=== PATIENT | male | born 1940 | race Caucasian/White ===

== ENCOUNTER → 2020-02-21 16:40 | Outpatient (BNVA) | payer MEDICARE, SELFPAY | PROVIDERS: Family Provider Internal Medicine; PCP Internal Medicine; Visit Provider Dermatology | DX: D48.9 Neoplasm of uncertain behavior, unspecified (principal) | CPT/HCPCS: 88304 ==

== ENCOUNTER → 2020-09-03 15:51 | Outpatient (BNVA) | payer MEDICARE, SELFPAY | PROVIDERS: Family Provider Internal Medicine; PCP Internal Medicine; Visit Provider Internal Medicine | DX: R82.998 Other abnormal findings in urine (principal); R30.0 Dysuria; I10 Essential (primary) hypertension; N40.0 Benign prostatic hyperplasia without lower urinary tract symptoms; R00.1 Bradycardia, unspecified | CPT/HCPCS: 80053; 81000; 82550; 83036; 84443; 85025 ==

== ENCOUNTER 2020-09-16 13:13 | Outpatient (CLI) | payer MEDICARE, SELFPAY ==
--- NOTE | 2020-09-16 13:45 | CT_ITS ---
WS: [id number] Exam: CT kidney stone [id number] Date/Time of Exam: 09/16/2020 1:27 PM Reason For Exam: R82.998 - Other abnormal findings in urine DLP: 1136.[address] scans at [facility] use at least one of these dose optimization techniques: automat ed exposure control; mA and/or kV adjustment per patient size (includes targeted exams where dose is matched to clinical indication); or iterative reconstruction. Mild infiltrate seen in the lateral aspect of the right lower lobe that may represent pneumonia or ch ronic change. Remaining lower lung zones were clear. A 9.2 x 8.5 mm nonobstructing calculus is noted in the left renal pelvis. There is also an additional 2 mm nonobstructing stone in the lower pole of the left kidney. There is also a 7 mm nonobstructing stone in the right kidney. The kidneys are other carranza unremarkable. 1.6 cm right adrenal nodule noted. Normal left adrenal gland. Coronary artery calc ifications. Normal liver, spleen and stomach. Small hiatal hernia. The pancreas is unremarkable. The abdominal aorta is normal in caliber. No calcified stones in the gallbladder. No free air. No lymphad enopathy in the abdomen. Small bowel loops are not dilated. Normal appendix visualized. Diverticulosi s of the sigmoid and descending colon. No sign of acute diverticulitis. Moderate-sized fat filled lef t inguinal hernia. Small fat filled right inguinal hernia. A 6.4 x 6.5 x 7 cm solid mass is noted in the mesenteric fat within the anterior central pelvis. There is prostatomegaly. The prostate gland me asures slightly over 6 cm in greatest transverse dimension. No destructive bone lesions. Degenerative changes of the lumbar spine. Recommendations: Follow-up abdominal and pelvic CT scan with intravenous and oral contrast could be h elpful in further workup. CT/CT kidney stone [id number] IMPRESSION: 1. 9.2 x 8.5 mm nonobstructing stone in the left renal pelvis. There is also an additional 2 mm nonobstructing stone in the left kidney. 2. 7 mm nonobstructing stone in the right kidney. 3. 1.6 cm right adrenal nodule which is indeterminate. 4. 6.4 x 6.5 x 7 cm solid mass noted in the mesenteric fat in the anterior cent ral pelvis. 5. Colonic diverticulosis. Moderate-sized left inguinal hernia. Other minor fin dings.
== END 2020-09-16 13:14 | disposition home or self-care (01) ==
PROVIDERS: PCP Internal Medicine; Visit Provider Internal Medicine
DX: R82.998 Other abnormal findings in urine (principal); N20.0 Calculus of kidney; D49.7 Neoplasm of unspecified behavior of endocrine glands and other parts of nervous system; K57.90 Diverticulosis of intestine, part unspecified, without perforation or abscess without bleeding; K40.90 Unilateral inguinal hernia, without obstruction or gangrene, not specified as recurrent; R31.0 Gross hematuria
CPT/HCPCS: 74176; 81003; 87086

== ENCOUNTER 2020-09-18 13:55 | Outpatient (CLI) | payer MEDICARE, SELFPAY ==
--- NOTE | 2020-09-18 14:09 | XR_ITS ---
WS: [id number] Exam: XR KUB [id number] Date/Time of Exam: 09/18/2020 2:09 PM Reason For Exam: RENAL STONE No priors. There are calcifications superimposing both kidneys suggesting renal stones. The largest calcificatio n on the left is 10.9 mm at greatest diameter, the right 5.37 mm. No bowel obstruction or free air. M oderate amount stool in the colon. Nonspecific bilateral pelvic calcifications. XR/XR KUB [id number] IMPRESSION: 1. Calcification superimpose both kidneys most likely renal calculi. 2. No acute abdominal finding.
== END 2020-09-18 13:56 | disposition home or self-care (01) ==
LOC: RAD 14:04
PROVIDERS: PCP Internal Medicine; Visit Provider Urology
DX: N20.0 Calculus of kidney (principal)
CPT/HCPCS: 74018; 81003

== ENCOUNTER 2020-09-19 11:26 | Outpatient (CLI) | payer MEDICARE, SELFPAY ==
[2020-09-19] MEDS: iohexol 300 mg/mL 50 mL Btl IV (12:45)
--- NOTE | 2020-09-19 13:00 | CT_ITS ---
WS: [id number] CT ABDOMEN AND PELVIS WITH CONTRAST HISTORY: R19.00 - Intra-abdominal and pelvic swelling, mass. TECHNIQUE: Imaging performed of the abdomen and pelvis with IV contrast. Single phase imaging of the abdomen. Coronal and sagittal reformats are submitted. All CT scans at [facility] use at least one of these dose optimization techniques: automated exposure control; mA and/or kV adjustment per patient size (includes targeted exams where dose is matched to clinical indication); or iterativ e reconstruction. IV CONTRAST: Omnipaque 300; 95 mL IV. Oral contrast: Yes. DLP: 1877.74 mGy.cm COMPARISON: 09/16/2020 Lower thorax: Chronic emphysematous changes at the lung bases. Mild fibrotic changes in the periphery . Heart is normal size. Small hiatal hernia. Liver/biliary system: Normal size with no intrahepatic dilatation. Gallbladder: Contracted gallbladder. No adjacent inflammation. Pancreas: Normal size pancreas and pancreatic duct. No adjacent inflammation. Spleen: Normal size spleen. No mass or infarct. Adrenal glands: Very mild thickening and nodularity of the RIGHT adrenal gland maximum diameter of 12 mm. Right kidney: Very mild atrophy. No obstruction. Nonobstructing 8 mm calcification in the mid kidney. Left kidney: Mild atrophy of the LEFT kidney. There is a nonobstructing calcification in the lower po le. There is an additional ovoid calcification measuring 8 mm at the UV junction. Small amount of adj acent inflammatory change in the soft tissues of the renal pelvis. No obstruction. Aorta: Moderate amount of intimal thickening and calcified plaque within the aorta. No aneurysm. Vari ant celiac axis. Lymphadenopathy: None. Free fluid: None. GI tract: Normal appearance of the stomach. No small bowel obstruction. The appendix is normal. There is a large soft tissue mass in the distal jejunum or proximal ileum centered within the mid pelvis e ncasing small bowel. This mass measures 6.3 x 6.0 x 7.5 cm in length. Small bowel extends through the mass and is not causing any obstruction. There are additional soft tissue masses within the central mesentery above the dominant mass ranging in size from a few millimeters to 3.0 cm. Sigmoid diverticu losis without acute diverticulitis. Abdominal wall: Unremarkable abdominal wall. No hernia. Pelvis: No free fluid or adenopathy within the pelvis. Moderately enlarged heterogeneous prostate gla nd. Inguinal canals are patent bilaterally containing fat only. Bones: There are several lytic areas within the spine and pelvis which will need to be further evalua angelica. Well-circumscribed lytic areas within L3, L4 and S1. Lytic area in the LEFT femoral neck. CT/CT abdomen pelvis w con* [id number] IMPRESSION: 1. Dominant pelvic mass encases distal small bowel without obstruction. Mass m easures 6.3 x 6.0 x 7.5 cm. There are additional smaller masses within the cent ral mesentery which are not encasing bowel. Favor lymphoma is the most likely e tiology. Less likely GIST, carcinoid or adenocarcinoma with metastatic lesions also within the differential. 2. Lytic areas within L3, L4 and S1 in the LEFT femoral neck. Recommend follow -up bone scan imaging to exclude metastatic disease. 3. Nonobstructing LEFT UP junction calcification measuring 8 mm with mild nigel cent inflammatory changes in the renal pelvis. 4. Minimal nodularity RIGHT adrenal gland.
== END 2020-09-19 11:27 | disposition home or self-care (01) ==
PROVIDERS: PCP Internal Medicine; Visit Provider Surgery
DX: R19.00 Intra-abdominal and pelvic swelling, mass and lump, unspecified site (principal); D49.7 Neoplasm of unspecified behavior of endocrine glands and other parts of nervous system; K63.9 Disease of intestine, unspecified
CPT/HCPCS: 74177

== ENCOUNTER 2020-09-24 10:40 | Outpatient (CLI) | payer MEDICARE, SELFPAY ==
--- NOTE | 2020-09-24 11:00 | CT_ITS ---
WS: [id number] CT CHEST WITH INTRAVENOUS CONTRAST HISTORY: FOLLOW ABD/PEL MASS/ ?METS TECHNIQUE: Contiguous 5 mm axial imaging performed on the thorax. Coronal and sagittal reformats are submitted. All CT scans at [facility] use at least one of these dose optimization techniq ues: automated exposure control; mA and/or kV adjustment per patient size (includes targeted exams wh ere dose is matched to clinical indication); or iterative reconstruction. CONTRAST: Omnipaque 300; 95 mL IV. DLP: 980.68 mGycm COMPARISON: None available. Lungs and central airway: Mild pleural thickening and fibrotic changes at the RIGHT apex. Very mild i nterstitial thickening in the RIGHT upper lobe along the fissure. Subpleural reticulations in the RIG HT lower lobe. No suspicious mass or nodule. Pleura: Normal. No pleural effusion. Heart and pericardium: Normal size heart with no pericardial effusion. Mediastinum and tuan: Small axillary and mediastinal lymph nodes. No enlarged lymph nodes. Vessels: Mild atherosclerosis aorta. Normal size pulmonary artery. Chest wall and lower neck: No soft tissue masses. Upper abdomen: Mild nodularity of the RIGHT adrenal gland has been previously described. Osseous structures: No osteoblastic or osteolytic disease identified. CT/CT chest w con* [id number] IMPRESSION: 1. No evidence for metastatic disease to the lungs. No adenopathy. 2. No lytic or destructive lesions within the bones. 3. Mild fibrotic changes in the RIGHT apex.
[2020-09-24] MEDS: iohexol 300 mg/mL 100 mL Btl IV (11:35)
== END 2020-09-24 10:41 | disposition home or self-care (01) ==
PROVIDERS: PCP Internal Medicine; Visit Provider Surgery
DX: R19.00 Intra-abdominal and pelvic swelling, mass and lump, unspecified site (principal)
CPT/HCPCS: 71260; 87635; Q9967

== ENCOUNTER 2020-09-25 01:03 | Emergency (ER) | payer MEDICARE, SELFPAY ==
[2020-09-25 01:08] VITALS: BP 158/83; PULSE 66; RESP 18; TEMP 36.3; O2SAT 96; BMI 29.5
--- NOTE | 2020-09-25 01:11 | ED_ITS ---
HPI - Abdominal Pain General: Chief Complaint: Abdominal Pain Stated Complaint: ab pain, poss kidney stones Time Seen by Provider: 09/25/20 01:08 History of Present Illness: HPI narrative: Patient comes in for concerns of lower abdominal pain. Patient states that he has a history of kidney stones and a pelvic mass that has wrapped itself around the small bowel. Patient reports he is found out this recently over the last 2 weeks. Patient was being evaluat ed for renal stones when they discovered the abnormal mass. Patient reports tonight he started having some lower abdominal pain which he stated was about a 10. Patient states that since arriving to the ER at the pain has subsided. MD elicited complaint: abdominal pain Pertinent past history: diverticulitis (Diverticulosis without past history of diverticulitis) and kidney stones Onset (ago): hour(s) Pain Consistency: intermittent Location: Suprapubic Severity: severe Pain scale (0-10): 10 Quality: cramping Radiation: none Migration to: no migration Exacerbating factors: nothing Relieving factors: nothing Review of Systems General: Reports: 10 or more systems reviewed and unremarkable except in HPI and below GI: Reports: abdominal pain PFSH ED PFSH: Medical History (Updated 09/25/20 @ 02:41 by ESPERANZA Fu) BPH (benign prostatic hyperplasia) Bradycardia Essential (primary) hypertension Low back pain Reflux esophagitis Urolithiasis Surgical History History of bilateral cataract extraction History of lung biopsy History of right knee surgery History of vasectomy Status post colonoscopy Family History Other Diabetes Stroke Social History Smoking and tobacco status: never smoked Alcohol intake: current Alcohol intake frequency: holidays/special occasions only History of recent travel: No Physical Exam Const: COMMON NORMALS: no acute distress and patient oriented x3 GENERAL APPEARANCE: cooperative HENMT: COMMON NORMALS: normocephalic and Normal external nose present HEAD & SCALP: normal to inspection and normocephalic NOSE: Normal external nose present MOUTH: Normal oral and palatal mucosa present Eye: GENERAL EYE: appearance normal, both eyes and all related structures Neck/C-Spine: COMMON NORMALS: full ROM Chest: COMMONS NORMALS: normal inspection of the chest Resp: COMMON NORMALS: normal respiratory effort EFFORT & INSPECTION: Yes able to speak in complete sentences Cardio: COMMON NORMALS: regular rate and regular rhythm RATE: regular rate RHYTHM: regular rhythm GI: COMMON NORMALS: Soft to palpation INSPECTION: Yes normal to inspection AUSCULTATION: Yes Hyperactive bowel sounds present PALPATION: Yes Soft to palpation and Yes Tenderness to palpation present (GI) (Lower abdomen) : COMMON NORMALS: Yes no CVA tenderness BLADDER/KIDNEY EXAM: Yes no CVA tenderness Back/Pelvis: COMMON NORMALS: no CVA tenderness and thoracic and lumbar spine normal to inspection Extremity: COMMON NORMALS: normal to inspection Neuro: COMMON NORMALS: patient oriented x3 and moves all extremities Psych: COMMON NORMALS: mental status grossly normal and cooperative Skin: COMMON NORMALS: no rashes or lesions noted GENERAL SKIN EXAM: no rashes or lesions noted Course Vital Signs: Vital signs: Vital Signs Temperature 97.4 F L 09/25/20 01:08 Pulse Rate 54 L 09/25/20 02:25 Respiratory Rate 18 09/25/20 02:25 Blood Pressure 143/77 09/25/20 02:25 Pulse Oximetry 91 09/25/20 02:25 MDM - Abdominal Pain MDM Narrative: Medical decision making narrative: Patient comes in tonight for concerns of lower abdominal pain. Patient does have a neoplasm in his abdomen that does go around the small bowel. Since arriving to the ER patient does feel somewhat better but would like to be evaluated anyway. On exam patient has hyperactive bowel sounds and some tenderness in the lower abdomen around the periumbilical area. Differential diagnosis includes but not limited to renal calculi, acute urinary retention, bowel obstruction, diverticulitis. Laboratory values were unremarkable. CT scan of the abdomen pelvis noted mass but no signs of obstruction at this time. Although it is suggested that patient may have partial to incomplete obstruction at times. Patient had resolution of pain without intervention. Patient will continue with routine care and follow-up as needed, or return to the ER for worsening symptoms. Lab Data: Labs: Lab Results 09/25/20 09/25/20 Range/Units 01:10 01:10 WBC 6.3 (4.0-10.0) 10^3/ uL RBC 4.98 (4.1-5.3) 10^6/u L Hgb 15.2 (11.7-16.6) g/dL Hct 46.0 (42.0-52.0) % MCV 92.4 (80-94) fL MCH 30.5 (28.0-34.0) pg MCHC 33.0 (30.0-36.0) g/dL RDW 12.4 (12.1-15.1) % Plt Count 148 (130-400) 10^3/c mm MPV 10.9 H (7.4-10.4) fL Neut % (Auto) 69.7 % Lymph % (Auto) 17.0 % Kitt[place] % (Auto) 8.1 % Eos % (Auto) 4.4 % Baso % (Auto) 0.5 % Neut # (Auto) 4.40 (1.8-7.7) 10^3/u L Lymph # (Auto) 1.1 (0.8-4.8) 10^3/u L Kittson # (Auto) 0.5 (0.2-0.9) 10^3/u L Eos # (Auto) 0.3 (0.0-0.8) 10^3/u L Baso # (Auto) 0.0 (0.0-0.1) 10^3/u L Nucleated RBC % (a uto) 0 % Nucleated RBCs # 0.0 /100WBC Sodium 140 (136-145) mmol/L Potassium 4.2 (3.5-5.1) mmol/L Chloride 103 (98-107) mmol/L Carbon Dioxide 28 (22-29) mmol/L Anion Gap 13.2 (5-19) BUN 13 (8-23) mg/dL Creatinine 0.8 (0.7-1.2) mg/dL GFR Calculation Not Reportable Glucose 128 H (65-115) mg/dL Calculated Osmolal ity 292 (285-295) mOsm/k g Calcium 8.9 (8.5-10.5) mg/dL Total Bilirubin 0.3 (0.15-1.2) mg/dL AST 24 (0-40) U/L ALT 26 (0-41) U/L Alkaline Phosphata se 81 (40-130) IU/L Total Protein 6.7 (6.6-8.7) g/dL Albumin 4.2 (3.5-5.2) g/dL Globulin 2.5 (1.3-4.6) g/dL Discharge Plan Discharge Patient Disposition: Home Clinical Impression: Pelvic neoplasm Abdominal pain Qualifiers: Abdominal location: lower abdomen, unspecified Qualified Code(s): R10.30 - Lower abdominal pain, unspecified Condition: Stable Prescriptions: No Action tadalafil [Cialis] 20 mg tablet 20 mg PO DAILY PRNRF: 0 vitamins A,C,T-btzo-ltcdrh PO RF: 0 garlic PO RF: 0 aspirin [Adult Low Dose Aspirin] 81 mg tablet,delayed release (DR/EC) 81 mg PO DAILY RF: 0 clobetasol 0.05 % ointment 1 applic TOPICAL BID Qty: 60 RF: 2 simvastatin 40 mg tablet 40 mg PO DAILY Qty: 90 RF: 3 nifedipine 30 mg tablet extended release 30 mg PO DAILY Qty: 90 RF: 3 Discharge Orders: Discharge ED (Routine); Ordered 09/25/20 Ordered By: Dany Casey Referrals: Db Guido MD [Primary Care Provider] - Discharge Diet: Usual diet Discharge Activity: Increase activity as tolerated Patient Instructions: Abdominal Pain (ED), Opioid Safety Activity Restrictions/Additional Instructions: Drink plenty of fluids. Activity as tolerated. Light diet. Follow-up with primary care or specialist as needed. Return to the ER for worsening symptoms. Coding Level of Care Code ED Chief Nursing Officer for Fredi Fwboubacar Exam Comprehensive
[2020-09-25 01:15] LABS: Basophils % 0.5 %; Eosinophils # 0.3 10^3/uL (0.0-0.8); Eosinophils % 4.4 %; Hemoglobin 15.2 g/dL (11.7-16.6); Lymphocytes # 1.1 10^3/uL (0.8-4.8); Mean Corpuscular Hemoglobin 30.5 pg (28.0-34.0); Mean Corpuscular Volume 92.4 fL (80-94); Mean Platelet Volume 10.9 fL (7.4-10.4); Monocytes # 0.5 10^3/uL (0.2-0.9); Monocytes % 8.1 %; Neutrophils % 69.7 %; Nucleated Red Blood Cells % 0 %; Platelet Count 148 10^3/cmm (130-400); Red Blood Count 4.98 10^6/uL (4.1-5.3); Red Cell Distribution Width 12.4 % (12.1-15.1); White Blood Count 6.3 10^3/uL (4.0-10.0)
--- NOTE | 2020-09-25 01:17 | CTR_ITS ---
PROCEDURE INFORMATION: Exam: CT Abdomen And Pelvis With Contrast Exam date and time: 09/25/2020 1:20 AM Age: 79 years old Clinical indication: Abdominal pain; Localized; Left lower quadrant (llq); Patient HX: Llq pain. Recently known intra-abdomnial mass. ; Additional info: Lower abd pain TECHNIQUE: Imaging protocol: Computed tomography of the abdomen and pelvis with contrast. Radiation optimization: All CT scans at this facility use at least one of these dose optimization techniques: automated exposure control; mA and/or kV adjustment per patient size (includes targeted exams where dose is matched to clinical indication); or iterative reconstruction. Contrast material: OMNI 300; Contrast volume: 95 ml; Contrast route: INTRAVENOUS (IV); COMPARISON: 1. CT abdomen pelvis w con* [id number] 2020-09-19 12:49 2. CR XR KUB [id number] 2020-09-18 14:15 RADIATION DOSE METRICS: Total DLP (mGy-cm): 1873.6 FINDINGS: Lungs: Dependent subsegmental pulmonary atelectasis. Mediastinal space: Mild gastro-esophageal thickening. Question distal esophagitis. Liver: Normal. No mass. Gallbladder and bile ducts: Normal. No calcified stones. No ductal dilation. Pancreas: Normal. No ductal dilation. Spleen: Normal. No splenomegaly. Adrenal glands: Unchanged 1.7 cm right adrenal nodule. Kidneys and ureters: Nonobstructing left renal calculus. Nonobstructing 5 mm right renal calculus. Left ureteral vesicle 9 mm calculus with mild left renal hydronephrosis. Calculus present also on prior and unchanged, could be transient or partially obstructing. Stomach and bowel: Mass appears to extend around the small bowel on sagittal image 44. Probably causes partial /incomplete obstruction. Mild colonic diverticulosis without evidence for acute diverticulitis. Mild colonic diverticulosis without evidence for acute diverticulitis. Appendix: No evidence of appendicitis. Intraperitoneal space: Mass within the mesentery associated with a small bowel loop in the lower abdomen to pelvis measures 6.9 x 6.5 x 7.9 cm. Additional several smaller mesenteric masses such as on coronal image 49 measuring 3.6 cm. Vasculature: Moderate aortic and iliac artery atherosclerotic disease. Lymph nodes: Unremarkable. No enlarged lymph nodes. Urinary bladder: Unremarkable as visualized. Reproductive: 5.1 cm prostate gland enlargement. Bones/joints: Well-circumscribed lytic lesions within the L3-S1 vertebrae and left femoral neck are unchanged, suspect benign, and some could be Schmorl's node cavities. Mild lumbar spondylosis. Soft tissues: Left inguinal fat protruding hernia. Left inguinal fat protruding hernia. CT/CT abdomen pelvis w con* [id number] IMPRESSION: 1. Mass within the mesentery associated with a small bowel loop in the lower abdomen to pelvis measures 6.9 x 6.5 x 7.9 cm. Mass appears to extend around the small bowel on sagittal image 44. Probably causes partial /incomplete obstruction. Additional smaller mesenteric masses. 2. Left ureteral vesicle 9 mm calculus with mild left renal hydronephrosis. Calculus present also on prior and unchanged, could be transient or partially obstructing. 3. Well-circumscribed lytic lesions within the L3-S1 vertebrae and left femoral neck are unchanged, suspect benign, and some could be Schmorl's node cavities. 4. 5.1 cm prostate gland enlargement. 5. Mild gastro-esophageal thickening. Question distal esophagitis. Radiation Dose CTDIVOL = (mGy): DLP = 1873.6 (mGy-cm)
[2020-09-25] MEDS: iohexol 300 mg/mL 100 mL Btl IV (01:27)
[2020-09-25 01:31] LABS: Alanine Aminotransferase 26 U/L (0-41); Albumin Level 4.2 g/dL (3.5-5.2); Alkaline Phosphatase 81 IU/L (40-130); Anion Gap 13.2 (5-19); Aspartate Amino Transferase 24 U/L (0-40); Blood Urea Nitrogen 13 mg/dL (8-23); Calcium 8.9 mg/dL (8.5-10.5); Carbon Dioxide 28 mmol/L (22-29); Chloride 103 mmol/L (98-107); Globulin 2.5 g/dL (1.3-4.6); Glucose 128 mg/dL (65-115); Osmolality Calculated 292 mOsm/kg (285-295); Potassium 4.2 mmol/L (3.5-5.1); Sodium 140 mmol/L (136-145); Total Bilirubin 0.3 mg/dL (0.15-1.2); Total Protein 6.7 g/dL (6.6-8.7)
[2020-09-25] MEDS: ondansetron 2 mg/ML SDV 2 mL 4 MG IVP (01:34)
[2020-09-25] MEDS: morphine 4 mg/mL SDV 1 mL 2 MG IVP (01:36)
[2020-09-25 02:25] VITALS: BP 143/77; PULSE 54; RESP 18; O2SAT 91
[2020-09-25 02:42] LABS: Add Urine Microscopic? YES; Bilirubin Urine Neg (Negative); Blood Urine 2+ (Negative); Glucose Urine UA Norm (Normal); Ketones Urine Negative (Negative); Leukocyte Esterase Urine Negative (Negative); Nitrate Urine Negative (Negative); Protein Urine Neg (Negative); Urine Appearance Clear (CLEAR); Urine Color Yellow (Yellow); Urobilinogen Urine Norm (Negative); pH Urine 7 (5-7)
[2020-09-25 02:43] LABS: Add Urine Culture? No; Squamous Epithelial Cell Urine RARE /hpf (0-5); WBC Urine 0-4 /hpf (0-5)
[2020-09-25 02:46] VITALS: BP 141/88; PULSE 51; RESP 18; O2SAT 94
== END 2020-09-25 02:47 | disposition home or self-care (01) ==
PROVIDERS: Emergency Provider Nurse Practitioner Family; PCP Internal Medicine
DX: R10.30 Lower abdominal pain, unspecified (principal); D49.89 Neoplasm of unspecified behavior of other specified sites; Z79.82 Long term (current) use of aspirin; I10 Essential (primary) hypertension
CPT/HCPCS: 74177; 80053; 81001; 85025; 96374; 96375; 99284; J2270; J2405; Q9967

== ENCOUNTER 2020-09-30 15:47 | Inpatient (IN) | payer MEDICARE, SELFPAY ==
[2020-09-27 15:03] VITALS: BMI 29.5
--- NOTE | 2020-09-27 18:34 | PC.NURSE ---
Mr. Diamond was given instruction at pre-op to be NPO after midnight September 29 2020, in addition to drinking only clear fluids on September 28 and 2020. Confirmed with Dr Montiel that clear liquids x2 days was not necessary and no enema was required. Pt was instructed to only be NPO after midnight on Sep 29, 2020 in preparation for Small Bowel Resection planned for September 30, 2020. Pt verbalized understanding.
[2020-09-30] VITALS (18 sets, daily range): BP systolic 115–150; BP diastolic 66–93; PULSE 54–73; RESP 12–20; TEMP 36.1–36.8; O2SAT 93–100
--- NOTE | 2020-09-30 11:17 | W.PM.OPSUD ---
Surgery/Procedure H&P Update DATE OF PROCEDURE: September 30, 2020 DATE H&P PERFORMED: 09/20/20 H&P UPDATE INFORMATION: I have reviewed H&P completed within last 30 days, I have examined patient prior to procedure and No changes to prior documentation PREOP DIAGNOSIS: Pelvic mass PLANNED PROCEDURE: Operation Date: 09/30/20 12:20 Proposed Procedures p Laparoscopic Small Bowel Resection [id number] R19.0 16134(Not Applicable) - Víctor Montiel MD s EGD(Not Applicable) - Víctor Montiel MD
[2020-09-30] MEDS: sodium chloride 0.9% 1,000 ML 30 ML IV (12:27)
--- NOTE | 2020-09-30 12:43 | ANES.PREANE2 ---
Pre-Anesthetic Assessment Pre-Anesthetic Assessment: Height/Weight: Height 1.75 m Weight 90.718 kg Temp Pulse Resp BP Pulse Ox 97 F L 54 L 18 123/93 98 09/30/20 11:07 09/30/20 11:07 09/30/20 11:07 09/30/20 11:07 09/30/20 11:07 Preop Diagnosis: Pelvic mass Proposed Procedure: Operation Date: 09/30/20 12:20 Proposed Procedures p Laparoscopic Small Bowel Resection 14206 R19.0 92582(Not Applicable) - Víctor Montiel MD s EGD(Not Applicable) - Víctor Montiel MD Familial anesthetic complications: none Was Beta Sowmya taken within 24 hours: N/A Was Clonidine taken within 24 hours: N/A Last intake: > 8 hrs Social: Social History: No alcohol and No tobacco Exam: Pre-Anes Outpt Exam: alert, oriented x 3, clear to auscultation bilaterally and regular rate & rhythm Airway: Cervical ROM: WNL MP: 4 Dentition: Full CV/HEM: CV/HEM: Arrythmia (bradycardia) and HTN Metabolic: Metabolic: Hyperlipidemia Anesthetic Plan: ASA status: 2 Anesthesia: General Risk of > 500 ml blood loss (7ml/kg in children): No Meds/Allergies Current Medications: Current Medications Generic Name Dose Route Start Last Admin Trade Name Freq PRN Reason Stop Dose Admin Sodium Chloride 1,000 mls @ 30 ml s/hr 09/30/20 11:15 09/30/20 12:27 Sodium Chloride 0.9% IV 10/01/20 11:14 30 mls/hr .Q24H GOLDEN Administration PFSH Anesthesia PFSH: Medical History (Updated 09/25/20 @ 02:41 by ESPERANZA Fu) BPH (benign prostatic hyperplasia) Bradycardia Essential (primary) hypertension Low back pain Reflux esophagitis Urolithiasis Surgical History History of bilateral cataract extraction History of lung biopsy History of right knee surgery History of vasectomy Status post colonoscopy Family History Other Diabetes Stroke Social History Smoking and tobacco status: never smoked Alcohol intake: current Alcohol intake frequency: holidays/special occasions only History of recent travel: No Data Anesthesia Cardiac Studies: No Data to Display
[2020-09-30] MEDS: midazolam 1 mg/mL INJ 5 ML 5 MG IVP (12:50)
[2020-09-30] MEDS: piperacillin-tazobactam 3.375 GM in sodium chloride 0.9% (plus) 50 ML IV (13:55)
--- NOTE | 2020-09-30 14:48 | PC.NURSE ---
6909 Spoke with patient's spouse via phone and gave her an update. BIBI
--- NOTE | 2020-09-30 15:34 | PC.NURSE ---
[id number] spoke with patient's . liana
--- NOTE | 2020-09-30 15:52 | P.OP_ITS ---
Operative Report Date of procedure: September 30, 2020 Pre-op Diagnosis: Pelvic mass Post-op Findings: No evidence of liver metastasis No evidence of peritoneal carcinomatosis 10 cm small bowel mass with a 5 cm mass in the mesentery Procedure Done: Laparoscopic small bowel resection with stapled [id number] anastomosis Specimens removed/disposition: Ileal mass and mesentery Surgeon: Víctor Montiel Anesthesia: General Estimated blood loss (mL): 10 IV fluids (mL): 1,000 Urine output (mL): 50 Condition: stable Disposition: PACU Procedure: The patient was taken to the operating room and intubated by general anesthesia after IV antibiotic had been administered. A Arreola catheter was placed and the abdomen was prepped and draped in sterile manner. Using a 15 blade longitudinal umbilical incision was made and using open Ojeda technique the peritoneal cavity was entered and a 10 mm port was placed and 15 mm of pneumoperitoneum was created. A 10 mm 30 degree scope was introduced and a 5 mm port was placed in the epigastric region, suprapubic area and left lower quadrant under direct visualization. 20 cc of saline mixed with 20 cc of Exparel mixed with 20 cc of 0.5% Marcaine was infiltrated in the midclavicular line under laparoscopic visualization for a TAP block There was no evidence of peritoneal carcinomatosis or liver metastasis. The colon appeared normal on gross exam and the small bowel was examined from the ligament of Treitz to the ileocecal valve. A large mass measuring about 10 cm was identified in the ileum with the smaller mass in the mesentery adjacent to the larger mass. About 10 cm on either side of the mass an opening was made in the mesentery and using Enseal ultrasonic dissector the mesentery of the small bowel was divided up to the base incorporating the mass within the mesentery. There was no significant bleeding noted. At this point the infraumbilical incision was extended and a wound protector was placed. The small bowel loop was exteriorized and interrupted 4-0 Vicryl sutures were placed to approximate the 2 edges of the ileum which were going to be anastomosed. Enterotomies were made using electrocautery adjacent to each other on the approximated small bowel segments and a 55 mm blue Stromedix EYAL stapler was fired to create a [id number] enteroenterostomy. The enterotomies that were created were grasped with Allis clamps and a 55 mm blue load EYAL stapler x2 was fired distal to the enterotomies to excise the specimen and create a [id number] anastomosis. The intersection of the staple lines were everted using 3-0 Vicryl Lembert sutures. The defect of the mesentery was closed using running 3-0 Vicryl suture. The small bowel was reintroduced into the peritoneal cavity and anastomosis covered with omentum. All ports were removed and the fascia in the midline was closed using running #1 looped PDS. Subcutaneous tissue was irrigated with with saline and approximated using interrupted 3-0 Vicryl suture and skin at all 4 incisions were closed with running subcuticular 4-0 Monocryl suture and Dermabond. The patient was extubated and transferred to recovery room in stable condition with a Arreola catheter.
--- NOTE | 2020-09-30 16:10 | P.PCN_ITS ---
PACU note PACU note: VSS, Good respiratory effort, report to CATALYST OPERATOR CHIEF Post-Anesthesia Exam: awake
--- NOTE | 2020-09-30 16:10 | PM.PACU ---
PACU note PACU note: VSS, Good respiratory effort, report to SHOT BAGGER Post-Anesthesia Exam: awake
[2020-09-30] MEDS: ondansetron 2 mg/ML SDV 2 mL 4 MG IVP (17:35)
[2020-09-30] MEDS: sennosides-docusate Tablet 1 TAB PO (17:35)
[2020-09-30] MEDS: metroNIDAZOLE IV 500 MG/100 ML PREMIX 100 MG IV (17:35)
[2020-09-30] MEDS: D5-NS 0.45% + KCL 20 mEq 20 MEQ/1,000 ML BAG 100 MEQ IV (17:35)
[2020-09-30] MEDS: morphine 4 mg/mL SDV 1 mL 3 MG IVP ×2 (17:35→22:57)
[2020-09-30] MEDS: HYDROcodone-acetaminophen 5-325 mg Tablet 1 TAB PO (19:28)
--- NOTE | 2020-09-30 20:38 | ANE.PACU2 ---
Inpatient post-anesthesia follow up: Airway intact: Yes Vital signs: Temperature 97.8 F Pulse Rate 70 Respiratory Rate 18 Blood Pressure 144/73 Pulse Oximetry 97 Oxygen Delivery Me thod Nasal Cannula Oxygen Flow Rate 2 Fraction of Inspir ed Oxygen Hydration adequate: Yes Nausea and vomiting: No Pain level: 2 Mental status: Baseline
[2020-09-30] MEDS: famotidine 20 mg/2 mL INJ IVP (21:13)
[2020-10-01] VITALS (7 sets, daily range): BP systolic 119–150; BP diastolic 73–79; PULSE 57–64; RESP 16–20; TEMP 36.4–37.1; O2SAT 88–98
[2020-10-01 02:41] LABS: Basophils % 0.3 %; Eosinophils % 0.4 %; Hemoglobin 13.7 g/dL (11.7-16.6); Lymphocytes # 0.5 10^3/uL (0.8-4.8); Lymphocytes % 6.5 %; Mean Corpuscular HGB Conc 33.4 g/dL (30.0-36.0); Mean Corpuscular Hemoglobin 31.1 pg (28.0-34.0); Mean Corpuscular Volume 93.2 fL (80-94); Mean Platelet Volume 11.4 fL (7.4-10.4); Monocytes # 0.4 10^3/uL (0.2-0.9); Monocytes % 5.3 %; Neutrophils # 6.46 10^3/uL (1.8-7.7); Neutrophils % 87.4 %; Nucleated Red Blood Cells % 0 %; Platelet Count 118 10^3/cmm (130-400); Red Cell Distribution Width 12.6 % (12.1-15.1); White Blood Count 7.4 10^3/uL (4.0-10.0)
[2020-10-01] MEDS: D5-NS 0.45% + KCL 20 mEq 20 MEQ/1,000 ML BAG 100 MEQ IV ×2 (02:44→17:28)
[2020-10-01] MEDS: metroNIDAZOLE IV 500 MG/100 ML PREMIX 100 MG IV (02:45)
[2020-10-01 03:04] LABS: Anion Gap 11.6 (5-19); Blood Urea Nitrogen 14 mg/dL (8-23); Calcium 7.6 mg/dL (8.5-10.5); Carbon Dioxide 26 mmol/L (22-29); Chloride 106 mmol/L (98-107); Creatinine Clr Calc Pharmacy 76.5209; Glucose 140 mg/dL (65-115); Osmolality Calculated 291 mOsm/kg (285-295); Potassium 4.6 mmol/L (3.5-5.1); Sodium 139 mmol/L (136-145)
[2020-10-01] MEDS: HYDROcodone-acetaminophen 5-325 mg Tablet 1 TAB PO ×4 (04:04→20:31)
[2020-10-01] MEDS: morphine 4 mg/mL SDV 1 mL 3 MG IVP (07:06)
[2020-10-01] MEDS: sennosides-docusate Tablet 1 TAB PO ×2 (09:15→17:27)
[2020-10-01] MEDS: NIFEdipine ER (24 hr) 30 mg Tablet PO (09:15)
--- NOTE | 2020-10-01 09:38 | PC.NURSE ---
Arreola catheter Ordered received to remove catheter DC without difficulty 850ml of dark jose urine
[2020-10-01] MEDS: famotidine 20 mg/2 mL INJ IVP ×2 (09:47→20:31)
--- NOTE | 2020-10-01 13:29 | PM.PN ---
Vitals/I&O/Wt Last Vital Signs Temp 98.5 F 10/01/20 11:46 Pulse 64 10/01/20 11:46 Resp 17 10/01/20 11:46 BP 150/79 10/01/20 11:46 Pulse Ox 93 10/01/20 12:25 09/30/20 10/01/20 10/01/20 22:59 06:59 14:59 Intake Total 410 / 1525 1065 / 1525 600 / 600 Output Total 110 / 110 850 / 850 Balance 300 / 1415 1065 / 1415 -250 / -250 Physical Exam Urinary Catheter Management^: Arreola: Cath Placed During This Visit: yes, but has since been removed by the nurse Reason for Continuing Indwelling Catheter: Other Urinary Catheter Date of Insertion: 09/30/20 Urinary Catheter Time of Insertion: 13:30 Date Urinary Catheter Removed: 10/01/20 Time Urinary Catheter Discontinued: 09:30 Data : 10/01/20 02:18 10/01/20 02:18 A&P Assessment and plan (1) S/P small bowel resection: Overall doing well, pain is reasonably controlled, has postop ileus Decrease IV fluids to 50 cc/h Senna S for bowel regimen Morphine, Tylenol and Mcintyre for pain control Start clear liquid diet Ambulate with physical therapy Lovenox for DVT prophylaxis Pepcid for GI prophylaxis DC Arreola Patient will need greater than 2 nights of inpatient stay to ensure resolution of ileus Status: Acute Attestations Medical Necessity Statement*: Status post bowel resection with postop ileus requiring continued inpatient stay Coding Level of Care Code Acute Horse Racetrack Manager for Chg Fwd Diagnoses S/P small bowel resection Z90.49
[2020-10-01] MEDS: enoxaparin 40 mg/0.4 mL Syringe SUBCUT (17:28)
--- NOTE | 2020-10-01 17:35 | PC.NURSE ---
patient has not passed gas yet
[2020-10-02] VITALS (8 sets, daily range): BP systolic 129–170; BP diastolic 64–81; PULSE 57–68; RESP 17–20; TEMP 36.4–37.1; O2SAT 92–98
[2020-10-02 02:43] LABS: Basophils % 0.1 %; Eosinophils # 0.2 10^3/uL (0.0-0.8); Hematocrit 40.6 % (42.0-52.0); Hemoglobin 13.9 g/dL (11.7-16.6); Lymphocytes # 0.6 10^3/uL (0.8-4.8); Lymphocytes % 8.8 %; Mean Corpuscular HGB Conc 34.2 g/dL (30.0-36.0); Mean Corpuscular Hemoglobin 31.4 pg (28.0-34.0); Mean Corpuscular Volume 91.6 fL (80-94); Mean Platelet Volume 11.1 fL (7.4-10.4); Monocytes # 0.5 10^3/uL (0.2-0.9); Monocytes % 7.3 %; Neutrophils # 5.83 10^3/uL (1.8-7.7); Neutrophils % 80.5 %; Nucleated Red Blood Cells % 0 %; Platelet Count 118 10^3/cmm (130-400); Red Blood Count 4.43 10^6/uL (4.1-5.3); Red Cell Distribution Width 12.6 % (12.1-15.1); White Blood Count 7.3 10^3/uL (4.0-10.0)
[2020-10-02] MEDS: HYDROcodone-acetaminophen 5-325 mg Tablet 1 TAB PO ×3 (02:46→16:38)
[2020-10-02 03:02] LABS: Anion Gap 11.2 (5-19); Blood Urea Nitrogen 8 mg/dL (8-23); Calcium 8.1 mg/dL (8.5-10.5); Carbon Dioxide 28 mmol/L (22-29); Chloride 103 mmol/L (98-107); Glucose 117 mg/dL (65-115); Osmolality Calculated 285 mOsm/kg (285-295); Potassium 4.2 mmol/L (3.5-5.1); Sodium 138 mmol/L (136-145)
[2020-10-02] MEDS: morphine 4 mg/mL SDV 1 mL 3 MG IVP (06:20)
[2020-10-02] MEDS: NIFEdipine ER (24 hr) 30 mg Tablet PO (08:15)
[2020-10-02] MEDS: famotidine 20 mg/2 mL INJ IVP ×2 (08:15→23:24)
[2020-10-02] MEDS: sennosides-docusate Tablet 1 TAB PO ×2 (08:15→16:38)
--- NOTE | 2020-10-02 09:36 | PC.NURSE ---
Patient walked 650 steps tolerated well nurse noted by
--- NOTE | 2020-10-02 14:22 | PM.PN ---
Subjective Subjective: Interval history: Patient has been doing well, ambulating, no flatus or BM, denies any nausea or vomiting Vitals/I&O/Wt Last Vital Signs Temp 98.8 F 10/02/20 12:00 Pulse 60 10/02/20 12:00 Resp 17 10/02/20 12:00 BP 156/80 10/02/20 12:00 Pulse Ox 92 10/02/20 12:00 10/01/20 10/02/20 10/02/20 22:59 06:59 14:59 Intake Total 360 / 3630 1360 / 3630 Output Total 1350 / 2200 Balance -990 / 1430 1360 / 1430 Physical Exam Narrative: EXAM NARRATIVE: Abdomen: Soft, mildly distended, tender, incision clean dry and intact, there is redness around the incision. Urinary Catheter Management^: Arreola: Cath Placed During This Visit: yes, but has since been removed by the nurse Reason for Continuing Indwelling Catheter: Decision to DC Catheter Urinary Catheter Date of Insertion: 09/30/20 Urinary Catheter Time of Insertion: 13:30 Date Urinary Catheter Removed: 10/01/20 Time Urinary Catheter Discontinued: 09:36 Data : 10/02/20 02:34 10/02/20 02:34 A&P Assessment and plan (1) S/P small bowel resection: Overall doing well, pain is reasonably controlled, has postop ileus, awaiting return of bowel function DC IV fluids Patient has redness around the incision but he is afebrile and his white count is 7.3 Senna S for bowel regimen Morphine, Tylenol and Cyclone for pain control Patient is a bit distended and therefore we will continue with clear liquid diet for now Ambulate with physical therapy Lovenox for DVT prophylaxis Pepcid for GI prophylaxis Patient will need greater than 2 nights of inpatient stay to ensure resolution of ileus Status: Acute Attestations Medical Necessity Statement*: Status post small bowel obstruction with postop ileus requiring continued inpatient stay to ensure resolution of ileus Coding Level of Care Code Acute Machine Design Checker for Fredi Fwboubacar Diagnoses S/P small bowel resection Z90.49
[2020-10-02] MEDS: enoxaparin 40 mg/0.4 mL Syringe SUBCUT (16:38)
[2020-10-03] VITALS (8 sets, daily range): BP systolic 127–168; BP diastolic 66–84; PULSE 53–102; RESP 16–20; TEMP 36.5–37.3; O2SAT 91–98
[2020-10-03] MEDS: morphine 4 mg/mL SDV 1 mL 3 MG IVP (01:54)
--- NOTE | 2020-10-03 02:33 | PC.NURSE ---
CLAUSTROPHOBIA/PANIC ATTACK Woke up to go to the bathroom and was c/o feeling panicky. Is really wanting to go home and says really misses his . Says if he had a way he would go home right now. Had some mild pain and was given IV Morphine for this and to help relax him. Sat in chair for awhile talking with nurse then returned to bed. Continued to talk with him for about half an hour and says has made him feel better. Is very pleasant. Talking about his and travels over [place]
[2020-10-03 02:42] LABS: Basophils % 0.2 %; Eosinophils # 0.2 10^3/uL (0.0-0.8); Eosinophils % 3.6 %; Hematocrit 43.2 % (42.0-52.0); Hemoglobin 14.6 g/dL (11.7-16.6); Lymphocytes # 0.7 10^3/uL (0.8-4.8); Lymphocytes % 9.8 %; Mean Corpuscular HGB Conc 33.8 g/dL (30.0-36.0); Mean Corpuscular Hemoglobin 30.9 pg (28.0-34.0); Mean Corpuscular Volume 91.5 fL (80-94); Mean Platelet Volume 11.5 fL (7.4-10.4); Monocytes # 0.6 10^3/uL (0.2-0.9); Monocytes % 8.5 %; Neutrophils # 5.14 10^3/uL (1.8-7.7); Neutrophils % 77.6 %; Nucleated Red Blood Cells % 0 %; Platelet Count 130 10^3/cmm (130-400); Red Blood Count 4.72 10^6/uL (4.1-5.3); Red Cell Distribution Width 12.4 % (12.1-15.1); White Blood Count 6.6 10^3/uL (4.0-10.0)
[2020-10-03 02:59] LABS: Anion Gap 14.9 (5-19); Blood Urea Nitrogen 9 mg/dL (8-23); Calcium 8.3 mg/dL (8.5-10.5); Carbon Dioxide 25 mmol/L (22-29); Chloride 102 mmol/L (98-107); Glucose 116 mg/dL (65-115); Osmolality Calculated 286 mOsm/kg (285-295); Potassium 3.9 mmol/L (3.5-5.1); Sodium 138 mmol/L (136-145)
--- NOTE | 2020-10-03 06:33 | PC.NURSE ---
SHIFT SUMMARY Says he slept some after the panic attack earlier in the night. Is still voicing that he really wants to go home today. Says he just has to get out of the hospital. Is not used to being down. Incision redness has not changed since shift beginning. No drainage noted. Midline incision as well as X3 stab incisions all with dermabond closure. Continues to pass gas and feels like he is getting closer to a BM. Abdomen softly distended. Incisional tenderness present. Bowel sounds present. Ambulates in room and faria well
--- NOTE | 2020-10-03 08:53 | PM.PN ---
Subjective Subjective: Interval history: Patient had an anxiety attack last night, no nausea or vomiting, feels that abdominal pain is improved, passing flatus, no BM Vitals/I&O/Wt Last Vital Signs Temp 97.9 F 10/03/20 07:35 Pulse 102 H 10/03/20 07:35 Resp 17 10/03/20 07:35 BP 127/71 10/03/20 07:35 Pulse Ox 92 10/03/20 07:35 10/02/20 10/03/20 10/03/20 22:59 06:59 14:59 Intake Total 300 / 540 240 / 540 Output Total 200 / 800 600 / 800 Balance 100 / -260 -360 / -260 Physical Exam Narrative: EXAM NARRATIVE: Abdomen: Soft, minimally tender, nondistended, hematoma around the incision, incisions clean dry and intact Urinary Catheter Management^: Arreola: Cath Placed During This Visit: yes, but has since been removed by the nurse Reason for Continuing Indwelling Catheter: Decision to DC Catheter Urinary Catheter Date of Insertion: 09/30/20 Urinary Catheter Time of Insertion: 13:30 Date Urinary Catheter Removed: 10/01/20 Time Urinary Catheter Discontinued: 09:36 Data : 10/03/20 02:28 10/03/20 02:28 A&P Assessment and plan (1) S/P small bowel resection: Overall doing well, pain is reasonably controlled, has postop ileus, awaiting return of bowel function Patient has redness around the incision, which is improved compared to yesterday but he is afebrile and his white count is 6.6 Senna S for bowel regimen Morphine, Tylenol and [place] for pain control Patient is passing flatus, advance to full liquid diet Ambulate with physical therapy Lovenox for DVT prophylaxis Pepcid for GI prophylaxis Patient will need greater than 2 nights of inpatient stay to ensure resolution of ileus Status: Acute Attestations Medical Necessity Statement*: Status post small bowel resection awaiting return of bowel function Coding Level of Care Code Acute Motor Vehicle Escort Driver for Veliag Fwd Diagnoses S/P small bowel resection Z90.49
--- NOTE | 2020-10-03 09:21 | PC.SOCIAL ---
*IMM UPDATE* Gave patient IMM update with at bedside. Verbalized understanding. 10/03/20 @ 0910 Initialed, dated, timed and placed in chart.
[2020-10-03] MEDS: NIFEdipine ER (24 hr) 30 mg Tablet PO (10:17)
[2020-10-03] MEDS: sennosides-docusate Tablet 1 TAB PO ×2 (10:17→17:33)
[2020-10-03] MEDS: famotidine 20 mg/2 mL INJ IVP ×2 (10:17→21:15)
[2020-10-03] MEDS: enoxaparin 40 mg/0.4 mL Syringe SUBCUT (17:33)
[2020-10-04 02:21] LABS: Basophils % 0.3 %; Eosinophils # 0.3 10^3/uL (0.0-0.8); Hematocrit 39.3 % (42.0-52.0); Hemoglobin 13.2 g/dL (11.7-16.6); Lymphocytes % 14.8 %; Mean Corpuscular HGB Conc 33.6 g/dL (30.0-36.0); Mean Corpuscular Hemoglobin 30.7 pg (28.0-34.0); Mean Corpuscular Volume 91.4 fL (80-94); Mean Platelet Volume 11.2 fL (7.4-10.4); Monocytes # 0.7 10^3/uL (0.2-0.9); Neutrophils # 4.74 10^3/uL (1.8-7.7); Neutrophils % 70.6 %; Nucleated Red Blood Cells % 0 %; Platelet Count 139 10^3/cmm (130-400); Red Cell Distribution Width 12.5 % (12.1-15.1); White Blood Count 6.7 10^3/uL (4.0-10.0)
[2020-10-04 02:47] LABS: Anion Gap 11.2 (5-19); Blood Urea Nitrogen 17 mg/dL (8-23); Calcium 8.5 mg/dL (8.5-10.5); Carbon Dioxide 28 mmol/L (22-29); Chloride 104 mmol/L (98-107); Glucose 99 mg/dL (65-115); Osmolality Calculated 290 mOsm/kg (285-295); Potassium 4.2 mmol/L (3.5-5.1); Sodium 139 mmol/L (136-145)
[2020-10-04 04:00] VITALS: BP 147/76; PULSE 62; RESP 18; TEMP 36.7; O2SAT 93
[2020-10-04 07:52] VITALS: BP 146/75; PULSE 69; RESP 17; TEMP 36.3; O2SAT 96
--- NOTE | 2020-10-04 08:39 | P.PN_ITS ---
Subjective Subjective: Interval history: Patient has been doing well, denies nausea or vomiting, tolerating full liquid diet, passing flatus, no BM yet Vitals/I&O/Wt Last Vital Signs Temp 97.4 F L 10/04/20 07:52 Pulse 69 10/04/20 07:52 Resp 17 10/04/20 07:52 BP 146/75 10/04/20 07:52 Pulse Ox 96 10/04/20 07:52 10/03/20 10/04/20 10/04/20 22:59 06:59 14:59 Intake Total 0 / 840 120 / 840 Balance 0 / 840 120 / 840 Physical Exam Narrative: EXAM NARRATIVE: Abdomen: Soft, not tender, nondistended, incision clean dry and intact Urinary Catheter Management^: Arreola: Cath Placed During This Visit: yes, but has since been removed by the nurse Reason for Continuing Indwelling Catheter: Decision to DC Catheter Urinary Catheter Date of Insertion: 09/30/20 Urinary Catheter Time of Insertion: 13:30 Date Urinary Catheter Removed: 10/01/20 Time Urinary Catheter Discontinued: 09:36 Data : 10/04/20 02:00 10/04/20 02:00 A&P Assessment and plan (1) S/P small bowel resection: Overall doing well, pain is reasonably controlled, has postop ileus, awaiting return of bowel function Patient has redness around the incision, which is improved compared to yesterday but he is afebrile and his white count is 6.6 DC home today Status: Acute Attestations Medical Necessity Statement*: DC home today Coding Level of Care Code Acute Primary Products Inspectors for Fredi Harper Diagnoses S/P small bowel resection Z90.49
[2020-10-04] MEDS: NIFEdipine ER (24 hr) 30 mg Tablet PO (08:43)
[2020-10-04] MEDS: sennosides-docusate Tablet 1 TAB PO (08:43)
[2020-10-04] MEDS: famotidine 20 mg/2 mL INJ IVP (08:43)
[2020-10-04 12:12] VITALS: BP 146/75; PULSE 69; RESP 17; TEMP 36.3; O2SAT 96
--- NOTE | 2020-10-04 12:46 | PM.DCS ---
Discharge Providers Date of Admission: 09/30/20 15:47 Date of Discharge: October 04, 2020 Attending Provider at Admission: Víctor Montiel MD Attending Provider at Discharge: Víctor Montiel MD Primary Care Provider: Db Guido MD Diagnoses at Discharge Discharge Diagnosis (1) S/P small bowel resection: Status: Acute Reason for Visit Reason for Visit: lap small bowel rescetion Hospital Course Hospital Course This is a 79-year-old male who underwent a CT abdomen pelvis during work-up for dark urine and was noted to have a small bowel mass. Patient subsequently underwent laparoscopic small bowel resection on 09/30/2020. Over the course of the next 3 days patient remained hemodynamically stable, afebrile. His incisions were clean dry and intact. At time of discharge he was tolerating a full liquid diet and passing flatus. No nausea or vomiting. Preliminary pathology report: Small lymphocytic lymphoma, margins negative Patient will follow up with Dr. Esqueda next week and I will see him back in clinic in 2 weeks Physical Exam Urinary Catheter Management^: Arreola: Cath Placed During This Visit: yes, but has since been removed by the nurse Reason for Continuing Indwelling Catheter: Decision to DC Catheter Urinary Catheter Date of Insertion: 09/30/20 Urinary Catheter Time of Insertion: 13:30 Date Urinary Catheter Removed: 10/01/20 Time Urinary Catheter Discontinued: 09:36 Discharge Data Data Completed and Pending: Pending at discharge Category Date Time Status ES surgery / GI i mages Routine Exams 09/30/20 13:09 Taken Basic Metabolic P curtis AM LABS Lab 10/05/20 04:00 Ordered Basic Metabolic P curtis AM LABS Lab 10/06/20 04:00 Ordered Complete Blood Co unt w/Auto AM LABS Lab 10/05/20 04:00 Ordered Complete Blood Co unt w/Auto AM LABS Lab 10/06/20 04:00 Ordered Miscellaneous Poonam t Routine Lab 09/30/20 10:00 Received Pathology: Surgic al [PTH] Routine Pth 09/30/20 15:39 Received Labs from last 24 hours 10/04/20 10/04/20 02:00 02:00 WBC 6.7 RBC 4.30 Hgb 13.2 Hct 39.3 L MCV 91.4 MCH 30.7 MCHC 33.6 RDW 12.5 Plt Count 139 MPV 11.2 H Neut % (Auto) 70.6 Lymph % (Auto) 14.8 Wilkinson % (Auto) 10.0 Eos % (Auto) 4.0 Baso % (Auto) 0.3 Neut # (Auto) 4.74 Lymph # (Auto) 1.0 Wilkinson # (Auto) 0.7 Eos # (Auto) 0.3 Baso # (Auto) 0.0 Nucleated RBC % (a uto) 0 Nucleated RBCs # 0.0 Sodium 139 Potassium 4.2 Chloride 104 Carbon Dioxide 28 Anion Gap 11.2 BUN 17 Creatinine 0.8 GFR Calculation Not Reportable Glucose 99 Calculated Osmolal ity 290 Calcium 8.5 Vitals: Last Vital Signs Temp 97.4 F L 10/04/20 07:52 Pulse 69 10/04/20 07:52 Resp 17 10/04/20 07:52 BP 146/75 10/04/20 07:52 Pulse Ox 96 10/04/20 07:52 Discharge Plan Discharge Patient Disposition: Home Condition: Stable Prescriptions: New Zofran 4 mg tablet 4 mg PO Q6H PRN (Reason: nausea and vomiting) Qty: 20 RF: 0 hydrocodone-acetaminophen 5-325 mg tablet 1 tab PO Q6H PRN (Reason: pain) Qty: 20 RF: 0 Senna with Docusate Sodium 8.6-50 mg tablet 1 tab-cap PO BID Qty: 30 RF: 0 Continued tadalafil [Cialis] 20 mg tablet 20 mg PO DAILY PRN (Reason: Erectile Dysfunction) RF: 0 aspirin [Adult Low Dose Aspirin] 81 mg tablet,delayed release (DR/EC) 81 mg PO DAILY RF: 0 clobetasol 0.05 % ointment 1 applic TOPICAL BID Qty: 60 RF: 2 simvastatin 40 mg tablet 40 mg PO DAILY Qty: 90 RF: 3 Adalat CC 30 mg tablet extended release 30 mg PO DAILY RF: 0 garlic Capsule 2,000 mg PO DAILY RF: 0 PreserVision AREDS [id number] Capsule 1 cap PO BID RF: 0 Discharge Orders: Discharge Order (Routine); Ordered 10/04/20 Ordered By: Víctor Montiel Referrals: Víctor Montiel MD [Physician] - 10/18/20 9:15 am Darrian Esqueda MD [Hospitalist] - 10/11/20 (Dr. Esqueda's office will call you with an appointment. If you dont hear from them please call on Wednesday or Wednesday. ) Patient Instructions: Hydrocodone/Acetaminophen (By mouth), Laxative, Stimulant (By mouth), Ondansetron (By mouth), Bowel Resection (DC), Laparoscopic Bowel Resection (DC), Opioid Safety Activity Restrictions/Additional Instructions: Diet Advance to GI soft diet once bowel function returns, increase fluid intake as much as possible. Initially try to have smaller portions every 2-3 hours until bowel function is back to normal Activity Avoid strenuous activity for 2 weeks but continue with daily activities including walking as tolerated. Do not lift more than 10 pounds for 2 weeks Return to work/school You can return to work/ school whenever you feel ready as long as you don?t have to lift more than 10 pounds at work. If you have paperwork that needs to be completed for time off from work, please contact my office Driving You can resume driving once you stop using narcotic pain medications, and transition to non-opioid pain medications like Tylenol, Motrin, Aleve, etc. Medications Pain Take opioid pain medications as prescribed and transition to non-opioid pain medications like Tylenol, Motrin, Aleve etc. over the next few days. The goal of the pain medications is to make the pain bearable and not to be pain free since you recently had surgery. Resume all home medications after surgery as per the medication reconciliation list Nausea Nausea is common after surgery, take nausea medications as needed and stay on a liquid bland diet until nausea resolves. Constipation The combination of surgery, anesthesia and pain medications can result in constipation. Take stool softeners as prescribed. If you do not have a bowel movement in 3 days, please take an [id number] laxative like MiraLAX to address the constipation. Shower It is ok to shower but avoid getting the wound wet for 48 hours after surgery. Do not soak in bathtub, swimming pool or hot tub for 2 weeks. Wound care If glue has been used on your incisions after surgery, the glue on the incision will peel slowly over the next two weeks. The stitches used are dissolvable and will not need to be removed. Do not apply antibiotics or other medications on the incision Problems with the wound: you can develop some redness around the incision from bruising after surgery. If there is increasing pain, redness, tenderness around the incision with or without drainage, please contact my office to rule out an infection. Sometimes the skin at the incisions can separate, resulting in reopening of the wound. Cover the wound with antibiotic cream and sterile dressings and contact my office. Contact physician Call the office at [phone] during office hours or go the Emergency Room My cell phone number is [phone] ?Fever to 100.4 or greater ?Shaking chills ?Pain that increases over time ?Redness, warmth, or pus draining from incision sites ?Persistent nausea or inability to take in liquids Discharge Attestations Time Spent in Discharge Care*: less than 30 min Quality Metrics Clinical Quality Measures During this hospital stay, did patient experience: None Coding Level of Care Code Acute Veliag FW MAXWELL note Diagnoses S/P small bowel resection Z90.49
[2020-10-09 07:00] LABS: Miscellaneous Test See Scanned Lab Rpt
== END 2020-10-04 11:30 | disposition home or self-care (01) | DRG 821 ==
LOC: MEDSURG 15:47
PROVIDERS: Admitting Provider Surgery; PCP Internal Medicine; Visit Provider Pathology Anatomic Pathology & Clinical Pathology
PROC: 0DT84ZZ Resection of Small Intestine, Percutaneous Endoscopic Approach (ICD-10-PCS; CPT 44202; principal; 2020-09-30 12:10)
PROC: 0DJ08ZZ Inspection of Upper Intestinal Tract, Via Natural or Artificial Opening Endoscopic (ICD-10-PCS; CPT 43235; 2020-09-30 12:10)
DX: C85.93 Non-Hodgkin lymphoma, unspecified, intra-abdominal lymph nodes (principal); K56.7 Ileus, unspecified; K57.90 Diverticulosis of intestine, part unspecified, without perforation or abscess without bleeding; Z79.82 Long term (current) use of aspirin; N40.0 Benign prostatic hyperplasia without lower urinary tract symptoms; I10 Essential (primary) hypertension; M54.5 Low back pain; N20.0 Calculus of kidney
CPT/HCPCS: 36415; 80048; 85025; 88271; 88275; 88307; 96365; 96372; 96374; 97116; 97161; C9290; J0330; J0690; J1650; J2250; J2270; J2405; J2543; J2704; J2710; J3010; J3490; J7030; S0030

== ENCOUNTER 2020-10-10 08:50 | Outpatient (CLI) | payer MEDICARE, SELFPAY ==
--- NOTE | 2020-10-10 18:57 | ONC CON_ITS ---
Dr. Esqueda New Patient Note Patient: Jules Diamond Unit #: [id number]: 1940 Dicatated By: Darrian Esqueda M.D.Date of Visit: Oct 10, 2020 Onc MED New Patient/Consult Referring Physician: Dr. GERSON MONTIEL M.D. Chief Complaint: Lymphoma. History of Present Illness: This is a 79-year-old man with newly diagnosed small lymphocytic lymphoma/chronic lymphocytic leukemia. He had presented to Dr. Guido in August with intermittent episodes of hematuria. This was thought to be due to nephrolithiasis, and indeed his CT abdomen/pelvis on 09/16/2020 did show a 9.2 x 8.5 mm nonobstructing stone in the left renal pelvis, a 2 mm nonobstructing stone in the left kidney, and a 7 mm nonobstructing stone in the right kidney. Other findings included an indeterminate right adrenal nodule measuring 1.6 cm, a moderate sized fat filled left inguinal hernia and a small fat filled right inguinal hernia. The most significant finding, though, was a solid mass in the mesenteric fat within the anterior central pelvis measuring 6.4 x 6.5 x 7 cm. He then had surgical consultation with Dr. Montiel on 09/20/2020. Further evaluation with chest CT on 09/24/2020 showed no evidence of primary lung lesion or metastatic disease to the lungs. Mild fibrotic changes were noted at the right apex. Repeat CT abdomen/pelvis on 09/25/2020 showed 9 mm left ureteral vesicle calculus with mild left renal hydronephrosis. Well-circumscribed lytic lesions within the L3 and S1 vertebral bodies and left femoral neck appear consistent with benign lesions. The mass was noted within the mesentery associated with a small bowel loop in the lower abdomen to pelvis. It measured 6.9 x 6.5 x 7.9 cm and it appeared to extend around the small bowel on the sagittal image with probable partial/incomplete obstruction. Additional smaller mesenteric masses were noted. On 09/30/2020 he underwent laparoscopic small bowel resection with stapled ausi-bz-bwag anastomosis. Findings included a large mass in the ileum measuring about 10 cm and a smaller mass in the adjacent mesentery. Both lesions were resected. Pathology showed a 6.5 cm mass in the small bowel which was located 3.9 cm from the proximal margin and 4.7 cm from the distal margin. There were 2 additional nodules identified within the mesentery. Microscopic examination showed proliferation of atypical small lymphocytes. Immunohistochemical studies were consistent with small lymphocytic lymphoma/chronic lymphocytic leukemia. The tumor cells were positive for CD20, CD23, CD5, CD45, and CD79a. They were negative for CD10, CD30, and cyclin D1. He is seen now for further management. He has had an uneventful recovery from his surgery. He says he is feeling fine. He is already back to doing light work. ECOG score is 1. He has good appetite and his weight has been stable. He has not had fever or night sweats. He has no shortness of breath, cough, or chest pain. He was having some acid reflux prior to surgery, but that has resolved now. He had a little bit of constipation postoperatively, but that also has resolved. Bowel and bladder function now are normal. He has had no further hematuria. He has no significant joint or bone pain. He does not complain of headache or dizziness. He has had some tingling in the dorsum of his right foot following a previous injury. He has no other focal neurologic symptoms. Past Medical History: His medical history includes benign prostatic hypertrophy, gastroesophageal reflux disease, hyperlipidemia, hypertension, low back pain, and nephrolithiasis. Past Surgical History: He underwent laparoscopic small bowel resection (ileum) with stapled gxeb-od-fzsi anastomosis on 09/30/2020. His other surgical/procedural history includes bilateral cataract excisions, open lung biopsy for benign disease, vasectomy, arthroscopic right knee surgery in 2018, and colonoscopy in 2018. Medications: Acetaminophen Tablet Oral PRN, Adult Aspirin Regimen (81 mg) Tablet, enteric coated Oral daily, Garlic (1000 mg) Tablet Oral daily, NIFEdipine ER (30 mg) Tablet SR 24 HR Oral daily, Ondansetron HCl (4 mg) Tablet Oral four times a day PRN, PreserVision AREDS Tablet Oral daily, Senna S (8.6-50 mg) Tablet Oral b.i.d., Simvastatin (40 mg) Tablet Oral daily Allergies: Cortisone Acetate Social History: Mr. Diamond is . He is a non-smoker. He has had just occasional alcohol use. Family History: Father had heart disease and diabetes. He at 90, reportedly of old age. Mother in a motor vehicle accident at age 60. A brother at age 45 with some type of respiratory disease. He has one sister who is in good health. Review Of Symptoms: Constitutional - He generally feels good. His energy is good and he is able to do light work. His appetite is good and his weight is stable. No fever, night sweats, or hot flashes. ECOG score is 1, Eyes - No change in vision, ENMT - He has hearing loss. No tinnitus. No sinus congestion/drainage. No mouth sores. No sore throat or difficulty swallowing, Hematologic/Lymphatic - No abnormal bruising, Respiratory - No shortness of breath. No cough. No pleuritic pain or hemoptysis, Cardiovascular - No angina pain. No palpitations, Gastrointestinal - No nausea or vomiting. He had some acid reflux around the time of his surgery but it has resolved. No diarrhea. He was having some constipation after surgery, but that also resolved. No blood in the stool or black stools, Genitourinary (M) - He had been having intermittent gross hematuria, presumed to be due to nephrolithiasis. It has now resolved. No dysuria. No urinary frequency. No urgency or incontinence, Musculoskeletal - Currently no joint or bone pain. He has had back pain in the past, Integumentary - No skin eruption, Neurologic - No headache or dizziness. He has some numbness in his right foot that has been present since he injured it years ago. No other focal neurologic symptoms, Psychiatric - No anxiety or depression. No insomnia. Vital Signs: Performed on Oct 10, 2020 10:16: 0, 0, 29.27, 2.06 sq.m, 69 in, 99 %, 55 /min (LOW), 18 /min, 69/91 mm(hg) (LOW), 98.2 F (LOW), and 198.2 lbs (HIGH). Physical Examination: Constitutional - He appears to be in good general health, Eyes - Sclerae nonicteric. Conjunctivae clear, ENMT - No lesions noted in the oral cavity, Neck - No mass or thyromegaly, Hematologic/Lymphatic - No cervical, clavicular, or axillary adenopathy, Respiratory - Lungs are clear with good air movement bilaterally, Cardiovascular - Heart rhythm is regular. There is a II/ systolic murmur at the base. There is no gallop or rub noted. There is no carotid bruit noted, Abdomen - Soft. The incision appears to be healing well. Liver and spleen are not enlarged. There is no abdominal mass or ascites noted and there is no inguinal adenopathy, Back/Spine - No spine or CVA tenderness noted, Extremities - No edema. Pedal pulses are palpable bilaterally, Integumentary - No rashes. No suspicious skin lesions noted, Neurologic - No focal neurologic deficits noted. Problem List: 1. 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 He underwent partial small bowel resection with end-to-end anastomosis on 09/30/2020. 2. Nephrolithiasis presenting with gross hematuria. 3. Hypertension. 4. Hyperlipidemia. 5. GERD. 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 This was discovered as an incidental finding during the course of evaluation for symptomatic nephrolithiasis. He underwent partial small bowel resection with end-to-end anastomosis on 09/30/2020. The pathology findings were reviewed with the patient and we discussed the clinic complications. He has a low-grade lymphoproliferative disorder, either small lymphocytic lymphoma or chronic lymphocytic leukemia, depending on whether or not the bone marrow is involved. In either case, treatment is indicated only for symptomatic or more advanced disease. Since the bulk of his disease has been resected, in all likelihood he will just be managed expectantly. We also discussed the fact that if his disease does progress to the point of becoming symptomatic, there is very effective treatment available, though not curative. As his preoperative CT scans did not show any other areas of significant involvement, I do not think there is much advantage in further staging with PET/CT. I would like to have him return in 1 month for additional laboratory studies to include CBC, comprehensive metabolic profile, and an LDH level. At that time I will review the blood smear, and if it shows any suspicious findings, I also will request a whole blood flow cytometry. In the meantime, I will CLL prognostic studies on the surgical specimen. However, as noted, in all likelihood I will just be following him on expectant management. On a further note, he also will be at risk for development of B12 deficiency, and that will need to be monitored. Signed By: Darrian Esqueda M.D. <<Signature on File>>
== END 2020-10-10 08:51 | disposition home or self-care (01) ==
LOC: ONCMED 08:53
PROVIDERS: PCP Internal Medicine; Visit Provider Internal Medicine Medical Oncology
DX: C91.10 Chronic lymphocytic leukemia of B-cell type not having achieved remission (principal); N20.0 Calculus of kidney; R31.0 Gross hematuria; I10 Essential (primary) hypertension; E78.5 Hyperlipidemia, unspecified; K21.9 Gastro-esophageal reflux disease without esophagitis; Z79.899 Other long term (current) drug therapy
CPT/HCPCS: 99205

== ENCOUNTER 2020-10-30 12:09 | Outpatient (CLI) | payer MEDICARE, SELFPAY ==
--- NOTE | 2020-10-30 12:15 | XR_ITS ---
WS: [id number] KUB, AP view, 10/30/2020 Clinical Data: FLANK PAIN Comparison: KUB, 09/18/2020. Findings: There are probably bilateral renal calcifications but detail is obscured with colon gas and fecal mat erial. There are calcifications which are probably vascular at the true pelvis. No intra-abdominal masses or evidence of obstruction is seen. XR/XR KUB [id number] Impression: Probable bilateral renal calculi unchanged.
== END 2020-10-30 12:10 | disposition home or self-care (01) ==
LOC: RAD 12:11
PROVIDERS: PCP Internal Medicine; Visit Provider Urology
DX: R10.9 Unspecified abdominal pain (principal)
CPT/HCPCS: 74018; 81003

== ENCOUNTER 2020-11-05 08:59 | Outpatient (CLI) | payer MEDICARE, SELFPAY ==
--- NOTE | 2020-11-06 07:07 | ONC FU_ITS ---
Dr. Esqueda Patient Follow-Up Note Patient: Jules Diamond Unit #: [id number]: 1940 Dicatated By: Darrian Esqueda M.D.Date of Visit:Nov 05, 2020 Onc Med Follow-up/Prog Note Chief Complaint: Lymphoma. 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 He had presented in August 2020 with intermittent episodes of hematuria. This was thought to be due to nephrolithiasis, and indeed his CT abdomen/pelvis on 09/16/2020 did show a 9.2 x 8.5 mm nonobstructing stone in the left renal pelvis, a 2 mm nonobstructing stone in the left kidney, and a 7 mm nonobstructing stone in the right kidney. Other findings included an indeterminate right adrenal nodule measuring 1.6 cm, a moderate sized fat filled left inguinal hernia, and a small fat filled right inguinal hernia. The most significant finding, though, was a solid mass in the mesenteric fat within the anterior central pelvis measuring 6.4 x 6.5 x 7 cm. He then had surgical consultation with Dr. Montiel on 09/20/2020. Further evaluation with chest CT on 09/24/2020 showed no evidence of primary lung lesion or metastatic disease to the lungs. Mild fibrotic changes were noted at the right apex. Repeat CT abdomen/pelvis on 09/25/2020 showed 9 mm left ureteral vesicle calculus with mild left renal hydronephrosis. Well-circumscribed lytic lesions within the L3 and S1 vertebral bodies and left femoral neck appeared consistent with benign lesions. The mass was noted within the mesentery associated with a small bowel loop in the lower abdomen to pelvis. It measured 6.9 x 6.5 x 7.9 cm and it appeared to extend around the small bowel on the sagittal image with probable partial/incomplete obstruction. Additional smaller mesenteric masses were noted. On 09/30/2020 he underwent laparoscopic small bowel resection with stapled bfls-wt-[id number] anastomosis. Findings included a large mass in the ileum measuring about 10 cm and a smaller mass in the adjacent mesentery. Both lesions were resected. Pathology showed a 6.5 cm mass in the small bowel which was located 3.9 cm from the proximal margin and 4.7 cm from the distal margin. There were 2 additional nodules identified within the mesentery. Microscopic examination showed proliferation of atypical small lymphocytes. By IHC the tumor cells were positive for CD20, CD23, CD5, CD45, and CD79a, and negative for CD10, CD30, and cyclin D1, initially felt to be consistent with small lymphocytic lymphoma. However, on further analysis by FISH, 33% of the cells showed a gain of MALT1, and the overall findings were then felt to be consistent with extranodal marginal zone lymphoma.. I had seen him initially on 10/10/2020. At that point the final path report had not been rendered, and we are suspecting small lymphocytic lymphoma. Based on that finding, there appeared to be no indication for further treatment. He is seen now for a follow-up visit. He is feeling pretty good generally. He still has some activity limitation following his surgery. His ECOG score is 1. He has good appetite. He has no fever or night sweats. Reports having some dryness in his mouth and throat. He has no shortness of breath, cough, or chest pain. He currently has no GI or complaints. He has no significant joint or bone pain. He does not complain of headache or dizziness. He has some numbness in his right foot following previous injury. Medications: Acetaminophen Tablet Oral PRN, Adult Aspirin Regimen (81 mg) Tablet, enteric coated Oral daily, Garlic (1000 mg) Tablet Oral daily, NIFEdipine ER (30 mg) Tablet SR 24 HR Oral daily, Ondansetron HCl (4 mg) Tablet Oral four times a day PRN, PreserVision AREDS Tablet Oral daily, Senna S (8.6-50 mg) Tablet Oral b.i.d., Simvastatin (40 mg) Tablet Oral daily Allergies: Cortisone Acetate Vital Signs: Performed on Nov 05, 2020 09:49 Height - 69.00 in Weight - 199.4 lbs (HIGH) BSA - 2.06 sq.m BMI - 29.45 Temperature - 97.9 F (LOW) Pulse - 64 /min Respiration - 18 /min BP - 154/78 mm(hg) (HIGH) O2 Sat - 98 % Pain - 0 Fatigue - 0 Physical Examination: Constitutional - He looks good generally, Eyes - Sclerae nonicteric. Conjunctivae clear, ENMT - No lesions noted in the oral cavity, Hematologic/Lymphatic - No cervical, clavicular, or axillary adenopathy, Respiratory - Lungs are clear with good air movement bilaterally, Cardiovascular - Heart rhythm is regular with some premature beats. There is a II/ systolic murmur at the base. There is no gallop or rub noted, Abdomen - Soft. Liver and spleen are not enlarged. There is no abdominal mass or ascites noted and there is no inguinal adenopathy, Extremities - No edema, Neurologic - No focal neurologic deficits noted. Problem List: 1. 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 He underwent partial small bowel resection with end-to-end anastomosis on 09/30/2020. 2. Nephrolithiasis presenting with gross hematuria. 3. Hypertension. 4. Hyperlipidemia. 5. GERD. 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 This was discovered as an incidental finding during the course of evaluation for symptomatic nephrolithiasis. He underwent partial small bowel resection with end-to-end anastomosis on 09/30/2020. His disease appears to been completely resected based on intraoperative findings, which I had discussed with Dr. Montiel, and on review of the pathology with Dr. Cervantes. I will want to schedule him for staging PET/CT when he has completely recovered from the surgery. However, assuming that there are no other areas of involvement and his disease has completely resected, he can then be followed on expectant management. Signed By: Darrian Esqueda M.D. <<Signature on File>>
== END 2020-11-05 09:00 | disposition home or self-care (01) ==
LOC: ONCMED 09:01
PROVIDERS: PCP Internal Medicine; Visit Provider Internal Medicine Medical Oncology
DX: C88.4 Extranodal marginal zone B-cell lymphoma of mucosa-associated lymphoid tissue [MALT-lymphoma] (principal); K63.89 Other specified diseases of intestine; N20.0 Calculus of kidney; R31.9 Hematuria, unspecified; I10 Essential (primary) hypertension; E78.5 Hyperlipidemia, unspecified; K21.9 Gastro-esophageal reflux disease without esophagitis; Z79.899 Other long term (current) drug therapy
CPT/HCPCS: 99214

== ENCOUNTER → 2020-11-06 12:23 | Outpatient (BNVA) | payer MEDICARE, SELFPAY | PROVIDERS: PCP Internal Medicine; Visit Provider Urology | DX: Z20.822 Contact with and (suspected) exposure to COVID-19 (principal); N20.9 Urinary calculus, unspecified | CPT/HCPCS: 87635 ==

== ENCOUNTER 2020-11-07 09:07 | Outpatient (CLI) | payer MEDICARE, SELFPAY ==
--- NOTE | 2020-11-07 09:30 | USCV_ITS ---
Jules Diamond Age: 80 Gender: M : 1940 Exam Date: 11/07/2020 09:27 Ordering Phys: Libra Coronado Technologist: Mirlande Peterson Exam Location: [facility] [place] Indication: CARDIAC MURMUR BP: 130 / 72 HR: 62 Rhythm: Sinus Technical Quality: Adequate MEASUREMENTS (Male / Female) Normal Values 2D ECHO LV Diastolic Diameter PLAX 4.3 cm 4.2 - 5.9 / 3.9 - 5.3 cm LV Systolic Diameter PLAX 2.7 cm IVS Diastolic Thickness 1.3 cm 0.6 - 1.0 / 0.6 - 0.9 cm IVS Systolic Thickness 1.9 cm LVPW Diastolic Thickness 1.3 cm 0.6 - 1.0 / 0.6 - 0.9 cm LVPW Systolic Thickness 1.4 cm RV Chamber Size 3.6 cm LVOT Diameter 2.0 cm LV Ejection Fraction 2D Teich 65.3 % LV Ejection Fraction MOD 2C 69.1 % LV Ejection Fraction 2C AL 70.0 % LA Diameter 3.2 cm LA Width 3.3 cm LA Height 3.3 cm RA Width 2.3 cm RA Height 3.8 cm Aorta at Sinotubular Diameter 3.3 cm M-MODE Aortic Annulus Diameter 3.8 cm LA Ao Ratio MM 0.9 MV E Point Septal Separation 1.1 cm DOPPLER AV Peak Velocity 183.0 cm/s LVOT Peak Velocity 75.0 cm/s AV Area Cont Eq vti 1.5 cm squared AV Area Cont Eq pk 1.3 cm squared MV Area PHT 3.1 cm squared Mitral E to A Ratio 0.8 MV E' Velocity 37.5 cm/s Mitral E to MV E' Ratio 11.7 Mitral E to LV E' Lateral Ratio 14.1 Mitral E to LV E' Septal Ratio 10.2 TR Peak Velocity 263.7 cm/s TR Peak Gradient 27.8 mmHg TV Peak E Velocity 58.0 cm/s Right Atrial Pressure 3.0 mmHg Pulmonary Artery Systolic Pressu 30.8 mmHg PV Peak Velocity 85.0 cm/s RV Acceleration Time 0.1 s RV Ejection Time 0.3 s RV AcT/ET 0.5 FINDINGS Left Ventricle Normal left ventricular cavity size. Normal left ventricular systolic function. No regional wall motion abnormalities. Left ventricular ejection fraction is estimated at 60 %. Grade I/IV diastolic dysfunction (abnormal relaxation filling pattern), normal to mildly elevated filling pressures. Right Ventricle The right ventricle is normal in size and function. Right Atrium The right atrium is normal in size. Left Atrium The left atrium is normal in size. Mitral Valve Moderately thickened mitral valve. No mitral valve stenosis. Trace mitral valve regurgitation. Aortic Valve Severe aortic valve calcification. Moderate aortic valve stenosis, mean gradient 6.6 mmHg, RONNY 1.5 cm squared. Mild aortic valve regurgitation. Tricuspid Valve Mild tricuspid valve regurgitation. Pulmonic Valve Mild pulmonary valve regurgitation. Pericardium Normal pericardium without effusion. Aorta Normal ascending aorta dimension. CONCLUSIONS 1-Normal left ventricular cavity size. Normal left ventricular systolic function. No regional wall motion abnormalities. Left ventricular ejection fraction is estimated at 60 %. Grade I/IV diastolic dysfunction (abnormal relaxation filling pattern), normal to mildly elevated filling pressures. 2-Severe aortic valve calcification. Moderate aortic valve stenosis, mean gradient 6.6 mmHg, RONNY 1.5 cm squared. Mild aortic valve regurgitation. 3-Moderately thickened mitral valve. No mitral valve stenosis. Trace mitral valve regurgitation. 4-There is no pericardial effusion. 5-Pulmonary artery systolic pressure is within normal limits. 6-Right atrial pressure is around 5 mm of mercury. 7-When compared to the prior echocardiogram dated 29 October 2016 there is a worsening of aortic stenosis from mild to moderate now. Christoph Hitchcock MD (Electronically Signed) Final Date: 07 November 2020 13:02 S
== END 2020-11-07 09:08 | disposition home or self-care (01) ==
LOC: RAD 09:08
PROVIDERS: PCP Internal Medicine; Visit Provider Nurse Practitioner Family
DX: R01.1 Cardiac murmur, unspecified (principal); I34.0 Nonrheumatic mitral (valve) insufficiency; I35.0 Nonrheumatic aortic (valve) stenosis
CPT/HCPCS: 93306

== ENCOUNTER 2020-11-08 10:24 | Day surgery (SDC) | payer MEDICARE, SELFPAY ==
[2020-11-06 11:10] VITALS: BMI 29.3
--- NOTE | 2020-11-06 11:21 | ECG_ITS ---
[facility] Test Date: 2020-11-06 Pat Name: Jules Diamond Department: Room: Gender: Male Credit Adjuster: : 1940 Requested By: Slade Bedolla Order Number: [id number] Rani MD: Socorro De La Vega M.D. Measurements Intervals [place] Rate: 52 P: 26 AK: 161 QRS: -24 QRSD: 108 T: 9 QT: 420 QTc: 392 Interpretive Statements SINUS BRADYCARDIA BORDERLINE LEFT AXIS DEVIATION [QRS AXIS < -20] VOLTAGE CRITERIA FOR LVH [MEETS CRITERIA IN ONE OF: R(aVL), S(V1), R(V5), R(V5/V6)+S(V1)] Compared to ECG 10/29/2016 01:12:53 Incomplete right bundle-branch block no longer present Electronically Signed On 11-06-2020 21:59:23 CDT by Socorro De La Vega M.D. [id number]
--- NOTE | 2020-11-06 11:43 | P.ANESASSM_ITS ---
Pre-Anesthetic Assessment Pre-Anesthetic Assessment: Height/Weight: Height 1.75 m Weight 90.265 kg Preop Diagnosis: Pelvic mass Proposed Procedure: Operation Date: 11/08/20 12:00 Proposed Procedures p ESWL Extracorporeal Shockwave Lithotrispy 92422 26111 n20.9(Left) - Easton Vitale MD s Ureteral Stent Placement(Not Applicable) - Easton Vitale MD Was Beta Sowmya taken within 24 hours: N/A Was Clonidine taken within 24 hours: N/A Social: Social History: No alcohol and No tobacco Exam: Pre-Anes Outpt Exam: alert, oriented x 3, clear to auscultation bilater ally and regular rate & rhythm Airway: Submandibular: WNL Cervical ROM: WNL MP: 2 Dentition: Full CV/HEM: CV/HEM: Arrythmia (mary lou), HTN and Murmur GI: GI: GERD Metabolic: Metabolic: Hyperlipidemia Anesthetic Plan: ASA status: 2 Anesthesia: General Risk of > 500 ml blood loss (7ml/kg in children): No PFSH Anesthesia PFSH: Medical History BPH (benign prostatic hyperplasia) Bradycardia Essential (primary) hypertension Low back pain Reflux esophagitis Urolithiasis Surgical History History of bilateral cataract extraction History of lung biopsy History of right knee surgery History of vasectomy S/P small bowel resection (09/30/20) Status post colonoscopy Family History (Updated 10/30/20 @ 13:01 by Libra Bazan LPN) Mother , in her 50's Accidental Father , at age 89 Heart attack Other Diabetes Stroke Social History (Updated 10/30/20 @ 13:02 by Libra Bazan LPN) Smoking and tobacco status: never smoked Alcohol intake: current Alcohol intake frequency: holidays/special occasions only Marital status: Current occupational status: employed History of recent travel: No Data Anesthesia Cardiac Studies: No Data to Display
[2020-11-08] VITALS (8 sets, daily range): BP systolic 140–157; BP diastolic 76–88; PULSE 55–68; RESP 12–20; TEMP 36.1–36.6; O2SAT 93–100
--- NOTE | 2020-11-08 10:29 | XR_ITS ---
WS: [id number] KUB, AP view, 11/08/2020 Clinical Data: Preop ESWL left renal calculus Comparison: KUB, 10/30/2020. Findings: Again there are probable bilateral renal calcifications. Colon gas obscures detail over the kidneys. No abnormal intraabdominal masses are seen. There is no dilatated small bowel or evidence of obstruct ion. There are probable vascular calcifications in the true pelvis. XR/XR KUB [id number] Impression: Bilateral renal calcifications.
[2020-11-08] MEDS: sodium chloride 0.9% 1,000 ML 30 ML IV (10:58)
--- NOTE | 2020-11-08 11:36 | P.ANESUD_ITS ---
Pre-Anesthetic Update Pre-Anesthetic Assessment: Date of Surgery/Procedure: 11/08/20 Preop Nora gnosis: Left UPJ stone Proposed Procedure: Operation Date: 11/08/20 12:00 Proposed Procedures p ESWL Extracorporeal Shockwave Lithotrispy 33445 87506 n20.9(Left) - Easton Vitale MD s Ureteral Stent Placement(Not Applicable) - Easton Vitale MD Any changes to Pre-Anesthetic Assessment?: No Last Intake: Intake Last Liquid Date 11/08/20 Last Liquid Time 06:00 Last Solid Date 11/06/20 Last Solid Time 08:00 Vitals: Temperature 97.9 F 11/08/20 11:09 Pulse Rate 57 L 11/08/20 11:09 Respiratory Rate 18 11/08/20 11:09 Blood Pressure 140/84 11/08/20 11:09 Blood Pressure Kaykay n 102 11/08/20 11:09 Pulse Oximetry 99 11/08/20 11:09 Oxygen Delivery Me thod 11/08/20 11:02 Exam: Pre-Anes Outpt Exam: alert, oriented x 3, clear to auscultation bilaterally and regular rate & rhythm Cardiac Studies: Echocardiogram 11/07/20
--- NOTE | 2020-11-08 12:22 | W.PM.OPSUD ---
Surgery/Procedure H&P Update DATE OF PROCEDURE: November 08, 2020 DATE H&P PERFORMED: 10/30/20 H&P UPDATE INFORMATION: I have reviewed H&P completed within last 30 days, I have examined patient prior to procedure, No changes to prior documentation and H&P is in [facility] EMR on date indicated CHANGES TO PREVIOUS DOCUMENTATION: I reviewed the procedure and expectations again with Fina. PREOP DIAGNOSIS: Left UPJ stone PLANNED PROCEDURE: Operation Date: 11/08/20 12:00 Proposed Procedures p ESWL Extracorporeal Shockwave Lithotrispy 21508 55036 n20.9(Left) - Easton Vitale MD s Ureteral Stent Placement(Not Applicable) - Easton Vitale MD
[2020-11-08] MEDS: levofloxacin-dextrose 5 % 500 MG/100 ML PREMIX 100 MG IV (12:29)
--- NOTE | 2020-11-08 13:42 | P.OP_ITS ---
Operative Report Date of procedure: November 08, 2020 Pre-op Diagnosis: Left UPJ stone Post-op diagnosis: same Procedure Done: 1. Extracorporeal shockwave lithotripsy to left UPJ stone 2. Cystoscopy left ureteral stent (6 Syrian by 28 cm double-pigtail without string) Pathology: none sent Surgeon: Iam Stroke Belt Sander Operator: Louie Koehler: Lithotripsy Cognos Report Developer Anesthesia: General Estimated blood loss: Less than 25 cc Urine output: Not measured Complications: None Findings: 1. The stone was easily focused upon. 2. The stone appeared to break up very well. 3. Total 2500 shocks administered Condition: stable Disposition: PACU Brief History: Alexandru is a 80-year-old white male recently diagnosed during work-up for gross hematuria with a large left UPJ stone. Mild obstructive changes noted. Later developed some intermittent left renal colicky type symptoms. 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 He is recovering well from the procedure. Preop work-up included routine cardiac exam showing a murmur and a echocardiogram revealed some aortic calcification but no severe regurgitation or stenosis. He was deemed safe based on function to proceed with treatment of the stone and ESWL was selected. Procedure: After routine preoperative evaluation examination and obtaining of informed consent he was taken to the operating suite on 11/08/2020 where general anesthesia was administered without difficulty after appropriate timeout was performed, SCDs confirmed to be functioning, preoperative antibiotics administered and beta-carson protocol confirmed. Position on the Dornier unit in supine position such that the stone was located the focal point with the shock head positioned posteriorly. Stone was easily identified. Shockwave therapy was initiated an intensity of 1 advanced to an intensity of 4. Rate was at 60. A several minute pause was conducted after about 300 shocks. The stone showed early and significant change After demonstrating change the rate was increased to 80. A total of 2500 shocks were administered. Real-time fluoroscopy was utilized for position changes as needed. Based on the size of the stone initially it was decided to leave a stent indwelling and therefore he was repositioned in dorsolithotomy position paying careful attention to avoiding pressure points. 21 Syrian cystoscope with 30 degree lens was introduced into the urethral meatus and advanced into the bladder under videoscopy. The bladder was systematically examined. There was bloody efflux from the left ureteral orifice. No other abnormalities were identified. Flexible tip guidewire was then easily advanced up the left ureter bypassing the UPJ stone fragments curling in the lower pole calyx. A 6 Syrian by 28 cm double-pigtail stent was advanced over the guidewire through the cystoscope into appropriate position as confirmed via fluoroscopy and cystoscopy. The bladder was drained and the procedure was completed. Tolerated procedure well without complications and was awakened in the operating room and returned to the care of room in stable condition. PLANS: 1. Anticipate discharge from outpatient surgery 2. Follow-up next week with KUB and likely cystoscopy stent removal
--- NOTE | 2020-11-08 14:02 | P.PCN_ITS ---
PACU note PACU note: VSS, Good respiratory effort, report to [facility] COACH Post-Anesthesia Exam: awake
--- NOTE | 2020-11-08 14:02 | PM.PACU ---
PACU note PACU note: VSS, Good respiratory effort, report to HEEL BUFFER Post-Anesthesia Exam: awake
--- NOTE | 2020-11-08 14:09 | SUR.PHASEI ---
1357 PT TO PACU SLEEPY WITH GOOD RESP , MONITOR SR WITH RARE PVC AND FREQUENT PAC'S. 1411 PT MORE ALERT ON RA TRIAL. VSS.
[2020-11-08] MEDS: HYDROcodone-acetaminophen 5-325 mg Tablet 1 TAB PO (15:05)
--- NOTE | 2020-11-08 15:52 | ANE.PACU2 ---
Inpatient post-anesthesia follow up: Airway intact: Yes Vital signs: Temperature 97.0 F Pulse Rate 61 Respiratory Rate 18 Blood Pressure 147/88 Pulse Oximetry 93 Oxygen Delivery Me thod Room Air Oxygen Flow Rate 6 Fraction of Inspir ed Oxygen Hydration adequate: Yes Nausea and vomiting: No Pain level: 2 Mental status: Baseline
== END 2020-11-08 15:25 | disposition home or self-care (01) ==
PROVIDERS: PCP Internal Medicine; Visit Provider Urology
PROC: (CPT 50590; principal; 2020-11-08 12:00)
PROC: (CPT 50605; 2020-11-08 12:00)
DX: N20.1 Calculus of ureter (principal); N40.1 Benign prostatic hyperplasia with lower urinary tract symptoms; N13.8 Other obstructive and reflux uropathy
CPT/HCPCS: 50590; 52332; 74018; 93005; C2625; J1100; J1956; J2405; J2704; J2710; J3010; J3490; J7030

== ENCOUNTER 2020-11-09 13:19 | Emergency (ER) | payer MEDICARE, SELFPAY ==
[2020-11-09 13:25] VITALS: BP 168/100; PULSE 72; RESP 18; TEMP 36.6; O2SAT 95; BMI 29.3
--- NOTE | 2020-11-09 13:38 | W.ED.GENADLT ---
HPI - General Adult General: Chief complaint: Urogenital-Male Stated complaint: post op ABD Pain Time Seen by Provider: 11/09/20 13:27 History of Present Illness: HPI narrative: 80-year-old male presents to the emergency room with complaints of orthostatic hypotension. Patient had a lithotripsy yesterday. Going back further in August 2020 patient had hematuria thought to be due to nephrolithiasis CT scan showed a nonobstructing stone in the renal pelvis and a nonobstructing stone although quite a bit smaller in the left side 2. Most significant finding at that point was a solid mass. This was resected. 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 Now today when he goes to stand he gets lightheaded and dizzy like he is going to pass out. Onset (ago): hour(s) Severity: moderate Relieving factors: none Exacerbating factors: other (Standing) Associated symptoms: Reports malaise, nausea and weakness; Deny chest pain, dyspnea or rash Treatments prior to arrival: none Review of Systems Const: Reports: malaise Card: Denies: chest pain Resp: Denies: dyspnea GI: Reports: nausea : Denies: flank pain, dysuria, urinary frequency or urinary urgency Skin/Breast: Denies: rash or pruritus PFSH ED PFSH: Medical History BPH (benign prostatic hyperplasia) Bradycardia Essential (primary) hypertension Low back pain Reflux esophagitis Urolithiasis Surgical History History of bilateral cataract extraction History of lung biopsy History of right knee surgery History of vasectomy S/P small bowel resection (09/30/20) Status post colonoscopy Family History (Updated 10/30/20 @ 13:01 by Libra Bazan LPN) Mother , in her 50's Accidental Father , at age 89 Heart attack Other Diabetes Stroke Social History (Updated 10/30/20 @ 13:02 by Libra Bazan LPN) Smoking and tobacco status: never smoked Alcohol intake: current Alcohol intake frequency: holidays/special occasions only Marital status: Current occupational status: employed History of recent travel: No Physical Exam Const: COMMON NORMALS: no acute distress GENERAL APPEARANCE: cooperative and comfortable ORIENTATION/CONSCIOUSNESS: Yes awake, Yes oriented to person, Yes oriented to place and Yes oriented to time HENMT: COMMON NORMALS: normocephalic, atraumatic and hearing grossly normal bilaterally HEAD & SCALP: normocephalic and atraumatic Neck/C-Spine: COMMON NORMALS: no JVD Resp: COMMON NORMALS: normal respiratory effort, No retractions, No use of accessory muscles and clear to auscultation bilaterally AUSCULTATION: clear to auscultation bilaterally Cardio: COMMON NORMALS: no JVD, regular rate, regular rhythm and No murmurs present (Cardio) RATE: regular rate RHYTHM: regular rhythm GI: COMMON NORMALS: Soft to palpation and No hepatosplenomegaly present AUSCULTATION: Yes normoactive bowel sounds PALPATION: Yes Soft to palpation, No Tenderness to palpation present (GI), No Guarding due to palpation present (GI) and Yes No hepatosplenomegaly present : COMMON NORMALS: Yes no CVA tenderness BLADDER/KIDNEY EXAM: Yes no CVA tenderness Back/Pelvis: COMMON NORMALS: no CVA tenderness Extremity: COMMON NORMALS: normal to inspection, capillary refill normal, no clubbing, cyanosis or edema, no calf tenderness and no pedal edema Neuro: SENSORIUM/ORIENTATION: Yes oriented to person, Yes oriented to place and Yes oriented to time Course Vital Signs: Vital signs: Vital Signs Temperature 98 F 11/09/20 13:25 Pulse Rate 59 L 11/09/20 15:48 Respiratory Rate 18 11/09/20 15:48 Blood Pressure 178/88 11/09/20 15:04 Pulse Oximetry 96 11/09/20 14:15 MDM - General Adult MDM Narrative: Medical decision making narrative: His renal function has slightly worsened from his most recent labs he is up to a creatinine of 1.4 whereas before he was subone. He has a left renal hematoma that is new from his most recent CT. Reviewed and discussed this with Dr. Vitale did the lithotripsy and stent yesterday. His pain now is controlled gave him a little bit of fluids but his blood pressure is elevated. He had some hiccups we offered him small dose of Haldol but he declined he did have some significant reflux associated with hiccups for which we gave him a GI cocktail. Discharge him home with Phenergan to use as needed as well as pantoprazole for reflux. He already has pain medications at home to use. So encouraged him to follow-up with creatinine within the next week. Anticipate this renal hematoma will reabsorb itself. The worsening problems can follow-up with Dr. Vitale or return to the emergency room. Reviewed this with him and his . Lab Data: Labs: Lab Results 11/09/20 11/09/20 Range/Units 14:06 14:06 WBC 15.0 H (4.0-10.0) 10^3/ uL RBC 4.62 (4.1-5.3) 10^6/u L Hgb 14.1 (11.7-16.6) g/dL Hct 41.7 L (42.0-52.0) % MCV 90.3 (80-94) fL MCH 30.5 (28.0-34.0) pg MCHC 33.8 (30.0-36.0) g/dL RDW 12.0 L (12.1-15.1) % Plt Count 163 (130-400) 10^3/c mm MPV 11.1 H (7.4-10.4) fL Neut % (Auto) 89.5 % Lymph % (Auto) 3.5 % York % (Auto) 6.2 % Eos % (Auto) 0.1 % Baso % (Auto) 0.2 % Neut # (Auto) 13.39 H (1.8-7.7) 10^3/u L Lymph # (Auto) 0.5 L (0.8-4.8) 10^3/u L York # (Auto) 0.9 (0.2-0.9) 10^3/u L Eos # (Auto) 0.0 (0.0-0.8) 10^3/u L Baso # (Auto) 0.0 (0.0-0.1) 10^3/u L Nucleated RBC % (a uto) 0 % Nucleated RBCs # 0.0 /100WBC Sodium 136 (136-145) mmol/L Potassium 4.0 (3.5-5.1) mmol/L Chloride 100 (98-107) mmol/L Carbon Dioxide 27 (22-29) mmol/L Anion Gap 13.0 (5-19) BUN 20 (8-23) mg/dL Creatinine 1.4 H (0.7-1.2) mg/dL GFR Calculation Not Reportable Glucose 126 H (65-115) mg/dL Calculated Osmolal ity 286 (285-295) mOsm/k g Calcium 8.7 (8.5-10.5) mg/dL Total Bilirubin 0.6 (0.15-1.2) mg/dL AST 19 (0-40) U/L ALT 24 (0-41) U/L Alkaline Phosphata se 89 (40-130) IU/L Total Protein 6.4 L (6.6-8.7) g/dL Albumin 3.9 (3.5-5.2) g/dL Globulin 2.5 (1.3-4.6) g/dL Discharge Plan Discharge Patient Disposition: Home Clinical Impression: Renal hematoma, left, Reflux esophagitis Condition: Stable Prescriptions: New promethazine 25 mg tablet 25 mg PO Q6H PRN (Reason: nausea and vomiting/hiccups) Qty: 14 RF: 0 pantoprazole 40 mg tablet,delayed release (DR/EC) 40 mg PO DAILY 42 Days RF: 0 No Action clobetasol 0.05 % ointment 1 applic TOPICAL BID PRN (Reason: Rash) RF: 0 hydrocodone-acetaminophen 5-325 mg tablet 1 tab PO Q6H PRN (Reason: Renal colic) 3 Days Qty: 12 RF: 0 tadalafil [Cialis] 20 mg tablet 20 mg PO DAILY PRN (Reason: Erectile Dysfunction) RF: 0 aspirin [Adult Low Dose Aspirin] 81 mg tablet,delayed release (DR/EC) 81 mg PO DAILY RF: 0 Hold Instructions: Resume on 11/11/20. simvastatin 40 mg tablet 40 mg PO DAILY Qty: 90 RF: 3 PreserVision AREDS [id number] Capsule 1 cap PO DAILY RF: 0 ondansetron HCl [Zofran] 4 mg tablet 4 mg PO Q6H PRN (Reason: nausea and vomiting) Qty: 20 RF: 0 nifedipine 30 mg tablet extended release 30 mg PO DAILY RF: 0 Discharge Orders: Discharge ED (Routine); Ordered 11/09/20 Ordered By: Jem Latham Referrals: Db Guido MD [Primary Care Provider] - Patient Instructions: Opioid Safety Coding Level of Care Code ED Land Degradation Analyst for Fredi Harper
--- NOTE | 2020-11-09 13:43 | CTR_ITS ---
PROCEDURE INFORMATION: Exam: CT Abdomen And Pelvis With Contrast Exam date and time: 11/09/2020 1:43 PM Age: 80 years old Clinical indication: Abdominal pain; Flank; Left; Prior surgery; Surgery date: 6+ months; Surgery type: Small bowel; Patient HX: HX of lymphoma C/O pain after lithotripsy; Additional info: Abd pain TECHNIQUE: Imaging protocol: Computed tomography of the abdomen and pelvis with contrast. Radiation optimization: All CT scans at this facility use at least one of these dose optimization techniques: automated exposure control; mA and/or kV adjustment per patient size (includes targeted exams where dose is matched to clinical indication); or iterative reconstruction. Contrast material: VISI 320; Contrast volume: 95 ml; Contrast route: INTRAVENOUS (IV); COMPARISON: CT abdomen pelvis w con* [id number] 09/25/2020 1:24 AM RADIATION DOSE METRICS: Total DLP (mGy-cm): 1850.39 FINDINGS: Lungs: The lung bases appear unremarkable. Pleural spaces: Minimal left pleural effusion. Mediastinal space: There is a small hiatal hernia present. Liver: Unremarkable. No mass. Gallbladder and bile ducts: No calcified stones. No ductal dilation. Pancreas: The pancreas is normal in appearance. No pancreatic duct dilatation. Spleen: Unremarkable. No splenomegaly. Adrenal glands: Nonspecific 1.9 cm right adrenal nodule. Left adrenal gland is unremarkable. Kidneys and ureters: Left ureteral stent, which appears appropriately positioned. No left hydronephrosis. Residual calculi fragments are demonstrated in the renal pelvis and proximal ureter. 2.5 mm residual calculus in the lower pole of the left kidney. There is a posterior subcapsular hematoma of the left kidney measuring 2.5 cm x approximately 7 cm x 5 cm. No active bleeding demonstrated. 5 mm right renal calculus. No right hydronephrosis. Right ureter appears normal. Stomach and bowel: Diverticulosis of the colon. No evidence of acute diverticulitis. No acute gastric abnormality demonstrated. The small bowel is unremarkable as demonstrated. Appendix: The appendix is normal in appearance. No evidence of appendicitis. Intraperitoneal space: No pneumoperitoneum. No significant fluid collection. Vasculature: The aorta is atherosclerotic. The aorta measures up to 2.1 cm in diameter. Lymph nodes: No pathologically enlarged lymph nodes. Urinary bladder: Minimal air in the urinary bladder secondary to instrumentation. The distal portion of the ureteral stent is seen in the bladder lumen. No bladder calculi. Reproductive: Enlargement of the prostate gland noted. Bones/joints: Degenerative spine changes are noted. No fracture or other acute osseous abnormality. Soft tissues: Small left inguinal hernia noted, containing only fat. 4 cm transverse by 8 cm longitudinal left inguinal hernia noted, containing only fat. CT/CT abdomen pelvis w con* [id number] IMPRESSION: 1. Left ureteral stent, which appears appropriately positioned. No left hydronephrosis. 2. Residual calculi fragments are demonstrated in the renal pelvis and proximal ureter. 2.5 mm calculus in the lower pole of the left kidney. 3. There is a posterior subcapsular hematoma of the left kidney measuring 2.5 cm x approximately 7 cm x 5 cm. No active bleeding demonstrated. 4. Enlargement of the prostate gland noted. 5. Diverticulosis of the colon. No evidence of acute diverticulitis. 6. Nonspecific 1.9 cm right adrenal nodule. This is unchanged 09/25/2020. 7. 4 cm transverse by 8 cm longitudinal left inguinal hernia noted, containing only fat. Radiation Dose CTDIVOL = (mGy): DLP = 1850.39 (mGy-cm)
[2020-11-09 14:15] VITALS: BP 180/103; PULSE 59; RESP 20; O2SAT 96
[2020-11-09 14:19] LABS: Basophils % 0.2 %; Eosinophils % 0.1 %; Hematocrit 41.7 % (42.0-52.0); Hemoglobin 14.1 g/dL (11.7-16.6); Lymphocytes # 0.5 10^3/uL (0.8-4.8); Lymphocytes % 3.5 %; Mean Corpuscular HGB Conc 33.8 g/dL (30.0-36.0); Mean Corpuscular Hemoglobin 30.5 pg (28.0-34.0); Mean Corpuscular Volume 90.3 fL (80-94); Mean Platelet Volume 11.1 fL (7.4-10.4); Monocytes # 0.9 10^3/uL (0.2-0.9); Monocytes % 6.2 %; Neutrophils # 13.39 10^3/uL (1.8-7.7); Neutrophils % 89.5 %; Nucleated Red Blood Cells % 0 %; Platelet Count 163 10^3/cmm (130-400); Red Blood Count 4.62 10^6/uL (4.1-5.3)
[2020-11-09 14:43] LABS: Alanine Aminotransferase 24 U/L (0-41); Albumin Level 3.9 g/dL (3.5-5.2); Alkaline Phosphatase 89 IU/L (40-130); Aspartate Amino Transferase 19 U/L (0-40); Blood Urea Nitrogen 20 mg/dL (8-23); Calcium 8.7 mg/dL (8.5-10.5); Carbon Dioxide 27 mmol/L (22-29); Chloride 100 mmol/L (98-107); Globulin 2.5 g/dL (1.3-4.6); Glucose 126 mg/dL (65-115); Osmolality Calculated 286 mOsm/kg (285-295); Sodium 136 mmol/L (136-145); Total Bilirubin 0.6 mg/dL (0.15-1.2); Total Protein 6.4 g/dL (6.6-8.7)
[2020-11-09 15:04] VITALS: BP 166/81; BP 166/94; BP 178/88; PULSE 68; PULSE 70; PULSE 73
[2020-11-09] MEDS: iodixanol 320 mg/mL 100mL Btl IV (15:19)
--- NOTE | 2020-11-09 15:42 | PM.MISC ---
Miscellaneous Note Purpose of Documentation: Emergency room documentation Note: Was treated yesterday with ESWL to a left UPJ stone with excellent response. Stented afterwards. Called today with persistent left upper quadrant left lower quadrant pain and dizziness with standing. Some nausea but no persistent nausea and vomiting. Did have some indigestion type symptoms. No fever or chills but found himself becoming hot when he stood up. On examination he looks miserable. Had tenderness in the left upper quadrant and left CVA mildly and some in the left lower quadrant. No bruising. Appear to be very uncomfortable. No labored respiration or wheezes. He has been able to drink. Was voiding okay per his report. Denied fever. Pulse was steady and not tachycardic. Did not appear to increase with standing. Recommended evaluation in the emergency department for possible CT scan and suspicion of renal hematoma post ESWL. Lab work looks good. Hemoglobin is stable from what his recent labs have been. Creatinine increased from 0.8-1.4. CT scan performed with contrast and reviewed. There is a left subcapsular hematoma extending the length of the kidney posteriorly. There is no extravasation beyond the capsule. There appears to be some decreased perfusion because of the hematoma compared to the other side. It looks like the stone is well fragmented. The stent is partially curled into the left lower pole calyx. No urinary extravasation. It looks like this could be managed conservatively. Recommend fluid replacement, pain control as needed on outpatient basis. Reviewed with patient and his Alphonse
[2020-11-09] MEDS: sodium chloride 0.9% 1,000 ML 999 ML IV (15:45)
[2020-11-09 15:48] VITALS: PULSE 59; RESP 18
[2020-11-09] MEDS: lidocaine 2% viscous 15 ML, aluminum-mag hydrox-simethicon 30 ML, sucralfate oral liq 1 GM PO (16:06)
[2020-11-09 16:23] VITALS: BP 169/107; PULSE 65; RESP 18; O2SAT 95
== END 2020-11-09 16:24 | disposition home or self-care (01) ==
PROVIDERS: Emergency Provider Family Medicine; PCP Internal Medicine
DX: K21.00 Gastro-esophageal reflux disease with esophagitis, without bleeding (principal); S37.012A Minor contusion of left kidney, initial encounter; Z79.82 Long term (current) use of aspirin; I10 Essential (primary) hypertension; X58.XXXA Exposure to other specified factors, initial encounter
CPT/HCPCS: 74177; 80053; 85025; 96360; 99283; J7030; Q9967

== ENCOUNTER 2020-11-13 07:22 | Outpatient (CLI) | payer MEDICARE, SELFPAY ==
--- NOTE | 2020-11-13 07:30 | XR_ITS ---
WS: [id number] KUB, AP view, 11/13/2020 Clinical Data: urolithiasis Comparison: KUB, 11/08/2020. Findings: No abnormal intraabdominal masses are seen. There is no dilatated small bowel or evidence of obstruct ion. There are calcifications overlying both kidneys. Fecal material and colon gas obscure the right kidne y and the inferior pole of the left kidney. There is a left ureteral stent in position. There are sma ll calcifications adjacent to the proximal ureteral stent. There are phleboliths in the true pelvis. XR/XR KUB [id number] Impression: 1. Left ureteral stent with adjacent proximal calcifications. 2. Probable bilateral renal calcifications.
== END 2020-11-13 07:23 | disposition home or self-care (01) ==
LOC: RAD 07:25
PROVIDERS: PCP Internal Medicine; Visit Provider Urology
DX: N20.9 Urinary calculus, unspecified (principal); Z96.0 Presence of urogenital implants
CPT/HCPCS: 74018; 80048

== ENCOUNTER 2020-11-22 10:14 | Outpatient (CLI) | payer MEDICARE, SELFPAY ==
--- NOTE | 2020-11-22 10:15 | XR_ITS ---
WS: [id number] XR KUB [id number] REASON FOR EXAM: UROLITHIASIS FINDINGS: Examination appears unchanged compared to the study of 11/13/2020. 4 mm calculus overlying the right kidney. Left ureteral stent. Calculi fragments along the ureteral stent L2-L3. Small fragments within the low er pole of the left kidney. No fragments identified within the bladder. Compared to several small valencia culus fragments at the level of the left transverse process of L3 are no longer identified. No other interval change. No other significant findings. XR/XR KUB [id number] IMPRESSION: Left ureteral stent with calculi fragments as above. It appears that some of th e previously demonstrated fragments have passed from the urinary tract.
== END 2020-11-22 10:15 | disposition home or self-care (01) ==
PROVIDERS: PCP Internal Medicine; Visit Provider Urology
DX: N20.9 Urinary calculus, unspecified (principal); Z96.0 Presence of urogenital implants
CPT/HCPCS: 74018

== ENCOUNTER 2020-12-06 10:08 | Outpatient (CLI) | payer MEDICARE, SELFPAY ==
--- NOTE | 2020-12-06 11:00 | XR_ITS ---
WS: [id number] KUB, AP view, 12/06/2020 Clinical Data: UROLITHIASIS Comparison: KUB, 11/22/2020. Findings: The left ureteral stent remains in position. There are stone fragments adjacent to the proximal stent unchanged. Fecal material and colon gas obscure detail over both kidneys. There may be a small calculus overlying the superior pole of the right kidney. XR/XR KUB [id number] Impression: 1. No change in left ureteral stent and proximal left ureteral calculi. 2. Probable right renal calculus.
== END 2020-12-06 10:09 | disposition home or self-care (01) ==
PROVIDERS: PCP Internal Medicine; Visit Provider Urology
DX: N20.9 Urinary calculus, unspecified (principal)
CPT/HCPCS: 74018

== ENCOUNTER 2020-12-20 08:36 | Outpatient (CLI) | payer MEDICARE, SELFPAY ==
--- NOTE | 2020-12-20 08:30 | XR_ITS ---
WS: [id number] Exam: XR KUB [id number] Date/Time of Exam: 12/20/2020 8:30 AM Reason For Exam: UROLITHIASIS Comparison 12/06/2020. A left-sided ureteral stent catheter is noted and appears to be in satisfactory location without rojas ge. There are numerous calcifications identified along the proximal catheter that may represent stone s in the ureter. Additional calcifications are seen over the left renal silhouette and apparently rep resent additional renal stones. No bowel obstruction or free air. 4 mm triangular calcification seen in the right abdomen that apparently represents a right renal stone. XR/XR KUB [id number] IMPRESSION: 1. Left ureteral catheter in place appearing to be in appropriate location. The re are calcifications along the proximal aspect of the catheter that may repres ent stones in the upper ureter. 2. Calcifications superimpose both renal silhouettes and likely represent addit ional renal stones. 3. No acute abdominal process.
== END 2020-12-20 08:37 | disposition home or self-care (01) ==
LOC: RAD 08:38
PROVIDERS: PCP Internal Medicine; Visit Provider Urology
DX: N20.9 Urinary calculus, unspecified (principal); Z96.0 Presence of urogenital implants
CPT/HCPCS: 74018; 81003

== ENCOUNTER 2021-01-20 08:11 | Outpatient (CLI) | payer MEDICARE, SELFPAY ==
--- NOTE | 2021-01-20 08:00 | XR_ITS ---
WS: [id number] Exam: XR KUB [id number] Date/Time of Exam: 01/20/2021 8:22 AM Reason For Exam: UROLITHIASIS Comparison 12/20/2020. No bowel obstruction or free air. Small calcification superimpose both kidneys most likely representi ng renal calculi. Multiple nonspecific pelvic calcifications noted. No sign of organ enlargement. Reg ional bony structures are intact. XR/XR KUB [id number] IMPRESSION: 1. Small calcification superimpose both kidneys most likely representing renal stones. 2. No acute process identified.
== END 2021-01-20 08:12 | disposition home or self-care (01) ==
LOC: RAD 08:14
PROVIDERS: PCP Internal Medicine; Visit Provider Urology
DX: N20.0 Calculus of kidney (principal)
CPT/HCPCS: 74018; 81003

== ENCOUNTER → 2021-02-27 13:19 | Outpatient (BNVA) | payer MEDICARE, SELFPAY | PROVIDERS: PCP Internal Medicine; Visit Provider Internal Medicine | DX: Z01.812 Encounter for preprocedural laboratory examination (principal); Z20.822 Contact with and (suspected) exposure to COVID-19; K92.1 Melena; L30.0 Nummular dermatitis | CPT/HCPCS: 82272; 87635; G0328 ==

== ENCOUNTER 2021-03-03 07:39 | Day surgery (SDC) | payer MEDICARE, SELFPAY ==
[2021-02-28 14:35] VITALS: BMI 30.1
--- NOTE | 2021-03-03 07:36 | W.PM.OPSFHP ---
Same Day Surgery H&P Indication for Procedure/HPI DATE OF PROCEDURE: March 03, 2021 CHIEF COMPLAINT/INDICATIONFOR SURGICAL PROCEDURE: Melena and heme positive stool PREOP DIAGNOSIS: Melena and heme positive stool PLANNED PROCEDRUE: Operation Date: 03/03/21 08:00 Proposed Procedures p EGD 89154 R19.5(Not Applicable) - Db Guido MD Medications/Allergies* Home Medications Medication Instructions Recorded Confirmed Type tadalafil 20 mg tablet 20 mg PO DAILY PRN 06/22/19 02/28/21 History aspirin 81 mg tablet,delayed 81 mg PO DAILY 01/25/20 02/28/21 History release clobetasol 0.05 % topical ointment 1 applic TOPICAL BID PRN gm 10/30/20 02/28/21 History nifedipine 30 mg PO DAILY 11/06/20 02/28/21 History Allergies/Adverse Reactions Allergy/AdvReac Type Severity Reaction Status Date / Time cortisone Allergy palpitation Verified 02/20/21 14:41 s Pertinent History/Comorbid Conditions* Medical History (Updated 02/20/21 @ 15:20 by Db Guido MD) BPH (benign prostatic hyperplasia) Bradycardia Essential (primary) hypertension Low back pain Reflux esophagitis Urolithiasis Surgical History (Updated 11/29/20 @ 15:02 by Víctor Montiel MD) History of bilateral cataract extraction History of lung biopsy History of right knee surgery History of vasectomy S/P small bowel resection (09/30/20) Status post colonoscopy Family History (Updated 10/30/20 @ 13:01 by Libra Bazan LPN) Father, at age 89 Mother, in her 50's Accidental Mother Diabetes Heart attack Father Stroke Social History Smoking and tobacco status: never smoked Alcohol intake: current Alcohol intake frequency: holidays/special occasions only Marital status: Current occupational status: employed History of recent travel: No Pertinent Exam Findings alert, oriented x 3, clear to auscultation bilaterally, regular rate & rhythm, operative site marked and procedure specific exam findings Recommendations Surgery/Procedure today Coding Level of Care Code Acute Prototype Technician for Fredi Harper
--- NOTE | 2021-03-03 07:55 | ANES.PREANE2 ---
Pre-Anesthetic Assessment Pre-Anesthetic Assessment: Height/Weight: Height 1.75 m Weight 92.533 kg Preop Diagnosis: Melena and heme positive stool Proposed Procedure: Operation Date: 03/03/21 08:00 Proposed Procedures p EGD 35275 R19.5(Not Applicable) - Db Guido MD Familial anesthetic complications: none Was Beta Sowmya taken within 24 hours: N/A Was Clonidine taken within 24 hours: N/A Last intake: > 8 hrs Social: Social History: No alcohol and No tobacco Exam: Pre-Anes Outpt Exam: alert, oriented x 3, clear to auscultation bilaterally and regular rate & rhythm Airway: MP: 3 Dentition: Full CV/HEM: CV/HEM: HTN Metabolic: Metabolic: Hyperlipidemia Anesthetic Plan: ASA status: 2 Anesthesia: MAC Risk of > 500 ml blood loss (7ml/kg in children): No PFSH Anesthesia PFSH: Medical History BPH (benign prostatic hyperplasia) Bradycardia Essential (primary) hypertension Low back pain Reflux esophagitis Urolithiasis Surgical History History of bilateral cataract extraction History of lung biopsy History of right knee surgery History of vasectomy S/P small bowel resection (09/30/20) Status post colonoscopy Family History Mother , in her 50's Accidental Father , at age 89 Heart attack Other Diabetes Stroke Social History Smoking and tobacco status: never smoked Alcohol intake: current Alcohol intake frequency: holidays/special occasions only Marital status: Current occupational status: employed History of recent travel: No Data Anesthesia Cardiac Studies: Echocardiogram 11/07/20
[2021-03-03 08:18] VITALS: BP 163/82; PULSE 50; RESP 18; TEMP 36.2; O2SAT 97
[2021-03-03] MEDS: sodium chloride 0.9% 1,000 ML 30 ML IV (08:29)
[2021-03-03 09:17] VITALS: BP 118/71; PULSE 65; RESP 18; TEMP 36.3; O2SAT 94
--- NOTE | 2021-03-03 13:43 | ANE.PACU2 ---
Inpatient post-anesthesia follow up: Airway intact: Yes Vital signs: Temperature 97.4 F Pulse Rate 65 Respiratory Rate 18 Blood Pressure 118/71 Pulse Oximetry 94 Oxygen Delivery Me thod Simple Mask Oxygen Flow Rate 6 Fraction of Inspir ed Oxygen Hydration adequate: Yes Nausea and vomiting: No Pain level: 1 Mental status: Baseline
[2021-03-04 05:44] LABS: H. Pylori / CLO Test Negative
== END 2021-03-03 09:53 | disposition home or self-care (01) ==
PROVIDERS: PCP Internal Medicine; Visit Provider Internal Medicine
PROC: 0DJ08ZZ Inspection of Upper Intestinal Tract, Via Natural or Artificial Opening Endoscopic (ICD-10-PCS; CPT 43235; principal; 2021-03-03 08:00)
DX: K92.1 Melena (principal); K29.50 Unspecified chronic gastritis without bleeding; I10 Essential (primary) hypertension; E78.5 Hyperlipidemia, unspecified; K21.00 Gastro-esophageal reflux disease with esophagitis, without bleeding; Z79.82 Long term (current) use of aspirin
CPT/HCPCS: 43239; 87077; 96360; J2704; J7030

== ENCOUNTER 2021-06-16 14:05 | Outpatient (CLI) | payer MEDICARE, SELFPAY ==
--- NOTE | 2021-06-16 15:30 | CT_ITS ---
WS: [id number] CT ABDOMEN PELVIS TECHNIQUE: Contrast-enhanced CT of the abdomen and pelvis with coronal and sagittal reformatted image s. CLINICAL INFORMATION: Continued lower abdominal pain after surgery COMPARISON: CT November 09, 2020 DLP: 1286.[address] scans at [facility] use at least one of these dose optimization techniques: automated e xposure control; mA and/or kV adjustment per patient size (includes targeted exams where dose is matc hed to clinical indication); or iterative reconstruction. FINDINGS: Diffuse fatty infiltration the liver. Normal portal vein and splenic vein. Normal gallbladder. Small esophageal hiatal hernia. Lung bases are well aerated. Enlarged lymph nodes along the central mesente ry largest measuring approximately 1.5 x 1.5 cm appears unchanged since November 09, 2020 and September 25. Prior history of mesenteric nodule resection with small bowel anastomosis. No evidence of bowel o bstruction. Fatty atrophy of the pancreas. Small RIGHT adrenal nodule likely adenoma measuring 10 mm. This is unc hanged. No hydronephrosis in either kidney. Normal renal parenchymal enhancement. No hydronephrosis. Small nonobstructing renal parenchymal calculi. No periaortic or retroperitoneal lymphadenopathy. Yudi tty periaortic lymph nodes. Enlarged heterogeneously enhancing prostate with indentation on the bladder measuring 5.5CM. Recommen d correlation PSA. Sigmoid diverticulosis. No evidence of acute diverticulitis. Normal appendix in th e RIGHT lower quadrant. Fat-containing LEFT inguinal hernia. Disc space narrowing worse at L3-L4 L4-L 5 and L5-S1. Small lytic lesions in the lower lumbar spine are stable. CT/CT abdomen pelvis w con* [id number] IMPRESSION: 1. Mild diffuse fatty infiltration of the liver. 2. Small esophageal hiatal hernia. 3. Sigmoid diverticulosis. No evidence of acute diverticulitis 4. Enlarged lymph node along the central mesentery largest measuring approxima tely 1.5 x 1.5 x 2.5 cm appears slightly more prominent compared to November 09 suspicious for lymphoma. This can be further evaluated PET/CT. 5. Additional prominent lymph nodes along the central mesentery appear stable. 6. Heterogeneously enhancing nodular enlarged prostate measuring 5.5 cm with i ndentation on the bladder. 7. Stable fat-containing LEFT inguinal hernia. 8. Stable RIGHT adrenal nodule likely adenoma measuring 10 mm
[2021-06-16 16:03] LABS: Blood Urea Nitrogen 15 mg/dL (8-23)
[2021-06-16] MEDS: iodixanol 320 mg/mL 100mL Btl IV (16:41)
[2021-06-16] MEDS: iohexol 300 mg/mL 50 mL Btl PO (16:41)
== END 2021-06-16 14:06 | disposition home or self-care (01) ==
PROVIDERS: PCP Internal Medicine; Visit Provider Internal Medicine
DX: R63.4 Abnormal weight loss (principal); K76.0 Fatty (change of) liver, not elsewhere classified; K44.9 Diaphragmatic hernia without obstruction or gangrene; K57.30 Diverticulosis of large intestine without perforation or abscess without bleeding; K40.90 Unilateral inguinal hernia, without obstruction or gangrene, not specified as recurrent
CPT/HCPCS: 74177; 82565; 84520

== ENCOUNTER 2021-08-15 09:26 | Outpatient (CLI) | payer MEDICARE, SELFPAY ==
--- NOTE | 2021-08-15 07:15 | XR_ITS ---
WS: [id number] Exam: XR KUB [id number] Date/Time of Exam: 08/15/2021 9:36 AM Reason For Exam: UROLITHIASIS Comparison 01/20/2021. Calcifications superimpose both kidneys and may represent renal calculi. No bowel obstruction or free air. No sign of organ enlargement. Moderate amount of stool in the transverse and right colon. Bony structures are intact. XR/XR KUB [id number] IMPRESSION: 1. Calcifications superimpose both renal silhouettes and apparently represent k nown renal stones. No acute abdominal process.
== END 2021-08-15 09:27 | disposition home or self-care (01) ==
LOC: RAD 09:27
PROVIDERS: PCP Internal Medicine; Visit Provider Urology
DX: N20.9 Urinary calculus, unspecified (principal)
CPT/HCPCS: 74018; 81003

== ENCOUNTER → 2021-10-29 08:12 | Outpatient (BNVA) | payer MEDICARE, SELFPAY | PROVIDERS: PCP Internal Medicine; Referring Provider Dermatology; Visit Provider Podiatrist Foot & Ankle Surgery | DX: M21.611 Bunion of right foot (principal); R60.0 Localized edema | CPT/HCPCS: 73630; 99203; 99204 ==

== ENCOUNTER → 2022-01-14 08:00 | Outpatient (BNVA) | payer MEDICARE, SELFPAY | PROVIDERS: PCP Internal Medicine; Visit Provider Podiatrist Foot & Ankle Surgery | DX: R60.0 Localized edema (principal); M21.611 Bunion of right foot | CPT/HCPCS: 99213 ==

== ENCOUNTER 2022-01-29 13:21 | Outpatient (CLI) | payer MEDICARE, SELFPAY ==
[2022-01-29] MEDS: iohexol 350 mg/mL 100 mL Btl IV (14:14)
[2022-01-29] MEDS: iohexol 350 mg/mL 100 mL Btl PO (14:16)
[2022-01-29 14:53] LABS: Blood Urea Nitrogen 22 mg/dL (8-23)
--- NOTE | 2022-01-29 15:15 | CT_ITS ---
WS: [id number] CT ABDOMEN AND PELVIS WITH CONTRAST HISTORY: Previous small bowel lymphoma. TECHNIQUE: Imaging performed of the abdomen and pelvis with IV contrast. Single phase imaging of the abdomen. Coronal and sagittal reformats are submitted. All CT scans at [facility] use at [address] one of these dose optimization techniques: automated exposure control; mA and/or kV adjustment per patient size (includes targeted exams where dose is matched to clinical indication); or iterative re construction. IV CONTRAST: Omnipaque 350; 95 mL IV. Oral contrast: Yes. DLP: 1293.48 mGy.cm COMPARISON: 06/16/2021 Lower thorax: Lung bases are clear. Heart is normal size. Small hiatal hernia. Liver/biliary system: Normal size with no intrahepatic dilatation. Normal portal vein. Gallbladder: Normal. No gallstones or wall thickening. No pericholecystic fluid. Pancreas: Normal size pancreas and pancreatic duct. No adjacent inflammation. Spleen: Normal size spleen. No mass or infarct. Adrenal glands: Mild thickening and nodularity the RIGHT adrenal gland now measuring 16 mm which has increased slightly since the prior study. LEFT adrenal gland is negative. Right kidney: Nonobstructing 6 mm calcification central pelvis. Left kidney: Nonobstructing 4 mm calcification lower pole. Aorta: Mild atherosclerosis aorta. Intimal thickening and calcified plaque. Normal variant celiac axi s. Lymphadenopathy: Central mesenteric lymphadenopathy is reidentified. Increase in size and number of t he central mesenteric lymph nodes since 06/16/2021. Central cluster of lymph nodes measures 3.0 x 3.0 cm. Single largest lymph node measures 2.5 x 1.9 cm. There are additional smaller scattered mesenteri c lymph nodes. Free fluid: None. GI tract: Well-distended stomach with contrast. No small bowel obstruction. There is mild small bowel wall thickening near the surgical anastomosis. This small bowel wall thickening appears more pronoun suleiman than on the prior study. Normal appendix. Mild diffuse constipation. Distal colonic diverticulosi s without diverticulitis. Abdominal wall: Postsurgical changes centrally. Pelvis: No free fluid or adenopathy. Well-distended urinary bladder. Bones: Degenerative disc disease. No osteoblastic or osteolytic bone disease. CT/CT abdomen pelvis w con* [id number] IMPRESSION: 1. Mild progression in size and number of the central mesenteric lymph nodes s daisy 06/16/2021. 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 2. Increasing soft tissue thickening near the small bowel anastomotic sutures in the central abdomen. New finding since the prior study. May be under distent ion of the small bowel but recurrent small bowel lymphoma should be considered. 3. Sigmoid diverticulosis. 4. Very slight increase in size of the RIGHT adrenal nodule.
== END 2022-01-29 13:22 | disposition home or self-care (01) ==
LOC: RAD 13:22
PROVIDERS: PCP Internal Medicine; Visit Provider Internal Medicine
DX: D49.89 Neoplasm of unspecified behavior of other specified sites (principal)
CPT/HCPCS: 74177; 82565; 84520

== ENCOUNTER 2022-02-24 08:46 | Oncology outpatient (recurring) (ONCR) | payer MEDICARE, SELFPAY ==
[2022-02-24 10:22] LABS: Basophils % 0.4 %; Eosinophils # 0.2 10^3/uL (0.0-0.8); Hematocrit 43.5 % (42.0-52.0); Hemoglobin 14.5 g/dL (11.7-16.6); Lymphocytes # 0.9 10^3/uL (0.8-4.8); Lymphocytes % 16.4 %; Mean Corpuscular HGB Conc 33.3 g/dL (30.0-36.0); Mean Corpuscular Hemoglobin 30.7 pg (28.0-34.0); Mean Corpuscular Volume 92.2 fl (80-94); Mean Platelet Volume 11.3 fL (7.4-10.4); Monocytes # 0.6 10^3/uL (0.2-0.9); Neutrophils # 3.79 10^3/uL (1.8-7.7); Neutrophils % 68.8 %; Nucleated Red Blood Cells % 0 %; Platelet Count 134 10^3/cmm (130-400); Red Blood Count 4.72 10^6/uL (4.1-5.3); Red Cell Distribution Width 12.5 % (12.1-15.1); White Blood Count 5.5 10^3/uL (4.0-10.0)
[2022-02-24 10:32] LABS: Alanine Aminotransferase 24 U/L (0-41); Alkaline Phosphatase 87 U/L (40-130); Anion Gap 11.5 (5-19); Aspartate Amino Transferase 17 U/L (0-40); Blood Urea Nitrogen 14 mg/dL (8-23); Calcium 9.2 mg/dL (8.5-10.5); Carbon Dioxide 30 mmol/L (22-29); Chloride 103 mmol/L (98-107); Glucose 83 mg/dL (65-115); Lactate Dehydrogenase 149 U/L (135-225); Osmolality Calculated 290 mOsm/kg (285-295); Potassium 4.5 mmol/L (3.5-5.1); Sodium 140 mmol/L (136-145); Total Bilirubin 0.6 mg/dL (0.15-1.2)
[2022-02-24 11:03] LABS: Slide Review Slide Review Perform
== END 2022-03-25 23:59 | disposition home or self-care (01) ==
LOC: ONCMED 08:47
PROVIDERS: PCP Internal Medicine; Visit Provider Internal Medicine Medical Oncology
DX: C85.88 Other specified types of non-Hodgkin lymphoma, lymph nodes of multiple sites (principal); Z87.891 Personal history of nicotine dependence
CPT/HCPCS: 80053; 83615; 85025; 99214

== ENCOUNTER 2022-04-28 09:51 | Oncology outpatient (recurring) (ONCR) | payer MEDICARE, SELFPAY | END 2022-05-26 23:59 | disposition home or self-care (01) | PROVIDERS: PCP Internal Medicine; Visit Provider Internal Medicine Medical Oncology | DX: C85.88 Other specified types of non-Hodgkin lymphoma, lymph nodes of multiple sites (principal); Z90.49 Acquired absence of other specified parts of digestive tract; Z87.891 Personal history of nicotine dependence | CPT/HCPCS: 36415; 80053; 83615; 85025; 99214 ==

== ENCOUNTER 2022-05-21 10:03 | Outpatient (CLI) | payer MEDICARE, SELFPAY ==
--- NOTE | 2022-05-21 10:00 | CT_ITS ---
WS: [id number] CT ABDOMEN AND PELVIS WITH CONTRAST HISTORY: Follow-up for lymphoma TECHNIQUE: Imaging performed of the abdomen and pelvis with IV contrast. Single phase imaging of the abdomen. Coronal and sagittal reformats are submitted. All CT scans at [facility] use at [address] one of these dose optimization techniques: automated exposure control; mA and/or kV adjustment per patient size (includes targeted exams where dose is matched to clinical indication); or iterative re construction. IV CONTRAST: Omnipaque 350; 95 mL IV. Oral contrast: Yes. DLP: 799.17 mGy.cm COMPARISON: 01/29/2022, PET/CT 02/28/2022 Lower thorax: Mild pleural scarring at the RIGHT lung base. No adenopathy. Heart is normal size. Smal l hiatal hernia. Liver/biliary system: Normal size with no intrahepatic dilatation. Gallbladder: Normal. No gallstones or wall thickening. No pericholecystic fluid. Pancreas: Normal size pancreas and pancreatic duct. No adjacent inflammation. Spleen: Normal size spleen. No mass or infarct. Adrenal glands: Stable 15 mm RIGHT adrenal nodule. Normal LEFT adrenal gland. Right kidney: Normal size kidney. Nonobstructing calcification in the central pelvis. Left kidney: Normal size kidney. Nonobstructing calcification lower pole. Aorta: Moderate atherosclerotic plaque throughout the aorta. Mild narrowing of the proximal celiac ax is. Intimal thickening throughout the aorta. Calcifications at the origins of the renal arteries. At least moderate stenosis RIGHT renal artery. Lymphadenopathy: Numerous central mesenteric lymph nodes. Lymph nodes range in size from subcentimete r to 2.3 cm. The largest lymph nodes are in the central mesentery. No improvement. Some of the lymph nodes have slightly increased in size since 01/29/2022. The small bowel wall thickening at the site of the anastomotic sutures has slightly improved and is nearly resolved. Free fluid: None. GI tract: Normally distended stomach. No small bowel obstruction. Normal appendix. Numerous diverticu la in the descending and sigmoid colon. Abdominal wall: Unremarkable abdominal wall. No hernia. Pelvis: Negative urinary bladder. No adenopathy in the pelvis. Prostate gland is mildly enlarged and heterogeneous. LEFT inguinal canal is patent containing fat. Bones: Lumbar spine disc spaces are narrowed and desiccated. Well-circumscribed lytic area in the LEF T femoral neck is unchanged. CT/CT abdomen pelvis w con* [id number] IMPRESSION: 1. Central mesenteric lymph nodes are reidentified. No improvement. Some of th edmar lymph nodes are measuring slightly greater in size. 2. Soft tissue tumor associated with the small bowel anastomotic sutures has n early completely resolved. 3. No ascites. 4. Sigmoid diverticulosis. 5. Stable RIGHT adrenal nodule.
[2022-05-21] MEDS: iohexol 350 mg/mL 500 mL Btl (per mL) IV (10:28)
[2022-05-21] MEDS: iohexol 350 mg/mL 500 mL Btl (per mL) PO (10:29)
== END 2022-05-21 10:04 | disposition home or self-care (01) ==
PROVIDERS: PCP Internal Medicine; Visit Provider Internal Medicine Medical Oncology
DX: C85.80 Other specified types of non-Hodgkin lymphoma, unspecified site (principal)
CPT/HCPCS: 74177; Q9967

== ENCOUNTER 2022-07-29 15:00 | Oncology outpatient (recurring) (ONCR) | payer MEDICARE, SELFPAY ==
[2022-07-29 16:51] LABS: Basophils % 0.6 %; Eosinophils # 0.3 10^3/uL (0.0-0.8); Eosinophils % 4.1 %; Hematocrit 44.8 % (42.0-52.0); Hemoglobin 14.7 g/dL (11.7-16.6); Lymphocytes # 1.1 10^3/uL (0.8-4.8); Lymphocytes % 15.9 %; Mean Corpuscular HGB Conc 32.8 g/dL (30.0-36.0); Mean Corpuscular Hemoglobin 29.6 pg (28.0-34.0); Mean Corpuscular Volume 90.3 fl (80-94); Mean Platelet Volume 10.8 fL (7.4-10.4); Monocytes # 0.6 10^3/uL (0.2-0.9); Monocytes % 8.5 %; Neutrophils # 4.99 10^3/uL (1.8-7.7); Neutrophils % 70.6 %; Nucleated Red Blood Cells % 0 %; Platelet Count 159 10^3/cmm (130-400); Red Blood Count 4.96 10^6/uL (4.1-5.3); Red Cell Distribution Width 12.5 % (12.1-15.1); White Blood Count 7.1 10^3/uL (4.0-10.0)
--- NOTE | 2022-07-29 16:53 | XR_ITS ---
WS: [id number] XR KUB [id number] REASON FOR EXAM: left flank pain with history of stone FINDINGS: 5 mm calculus in the upper pole of the right kidney and a 3 mm calculus in the lower pole of the left kidney congruent with the previous CT scan 05/21/2022 and unchanged in position. No other urinary tract calculi are identified. No other abdominal abnormality is identified. XR/XR KUB [id number] IMPRESSION: Intrarenal calculi unchanged in position with no ureteral calculi identified. No other acute abnormality.
[2022-07-29 17:09] LABS: Bilirubin Urine Neg (Negative); Blood Urine Neg (Negative); Glucose Urine UA Norm (Normal); Ketones Urine 1+ (Negative); Nitrate Urine Negative (Negative); Protein Urine Neg (Negative); Specific Gravity, Urine 1.025 (1.005-1.030); Urine Appearance Clear (CLEAR); Urine Color Yellow (Yellow); Urobilinogen Urine Norm (Negative); pH Urine 5 (5-7)
[2022-07-29 17:09] LABS: Alanine Aminotransferase 28 U/L (0-41); Albumin Level 4.4 g/dL (3.5-5.2); Alkaline Phosphatase 86 U/L (40-130); Anion Gap 11.4 (5-19); Aspartate Amino Transferase 21 U/L (0-40); Blood Urea Nitrogen 19 mg/dL (8-23); Calcium 8.7 mg/dL (8.5-10.5); Carbon Dioxide 28 mmol/L (22-29); Chloride 106 mmol/L (98-107); Globulin 2.2 g/dL (1.3-4.6); Glucose 81 mg/dL (65-115); Lactate Dehydrogenase 151 U/L (135-225); Osmolality Calculated 293 mOsm/kg (285-295); Potassium 4.4 mmol/L (3.5-5.1); Sodium 141 mmol/L (136-145); Total Bilirubin 0.4 mg/dL (0.15-1.2); Total Protein 6.6 g/dL (6.6-8.7)
[2022-07-29 17:10] LABS: Add Urine Microscopic? YES; Bacteria Urine TRACE /hpf; Leukocyte Esterase Urine Trace (Negative); Mucus Urine 2+ /hpf; RBC Urine 0-4 /hpf (0-2); Squamous Epithelial Cell Urine 0-4 /hpf (0-5); WBC Urine 0-4 /hpf (0-5)
[2022-07-29 17:11] LABS: Add Urine Culture? No
== END 2022-08-23 23:59 | disposition home or self-care (01) ==
PROVIDERS: Nurse Practitioner Family; PCP Internal Medicine; Visit Provider Internal Medicine Medical Oncology
DX: C85.88 Other specified types of non-Hodgkin lymphoma, lymph nodes of multiple sites (principal); Z90.49 Acquired absence of other specified parts of digestive tract; Z87.891 Personal history of nicotine dependence; N20.0 Calculus of kidney; R30.0 Dysuria; Z79.2 Long term (current) use of antibiotics; H53.8 Other visual disturbances
CPT/HCPCS: 36415; 74018; 80053; 81001; 83615; 85025; 99214

== ENCOUNTER 2022-08-13 12:02 | Outpatient (CLI) | payer MEDICARE, SELFPAY ==
--- NOTE | 2022-08-13 12:07 | XRR_ITS ---
PROCEDURE INFORMATION: Exam: XR Abdomen Exam date and time: 08/13/2022 12:10 PM Age: 81 years old Clinical indication: Condition or disease; Kidney or ureter condition; Calculus (stone) in kidney and calculus (stone) in ureter; Additional info: Willarddonatomikey boris 08/13/22@ 8:00 am appt to follow TECHNIQUE: Imaging protocol: Radiologic exam of the abdomen. Views: Frontal supine view of the abdomen. 1 View. COMPARISON: CT abdomen pelvis w con* [id number] 05/21/2022 11:18 AM FINDINGS: Gastrointestinal tract: Normal. No bowel dilation. Organs: There are stones in both kidneys. No visible ureteral stones. There multiple pelvic phleboliths. Bones/joints: There is moderate degenerative disease in the lumbar spine. XR/XR KUB [id number] IMPRESSION: Bilateral nephrolithiasis.
== END 2022-08-13 12:03 | disposition home or self-care (01) ==
LOC: RAD 12:04
PROVIDERS: PCP Internal Medicine; Visit Provider Urology
DX: N20.0 Calculus of kidney (principal); M47.816 Spondylosis without myelopathy or radiculopathy, lumbar region
CPT/HCPCS: 74018; 99213

== ENCOUNTER → 2022-10-13 12:56 | Outpatient (BNVA) | payer MEDICARE, SELFPAY | PROVIDERS: PCP Internal Medicine; Visit Provider Dermatology | DX: L82.1 Other seborrheic keratosis (principal); L57.0 Actinic keratosis; L82.0 Inflamed seborrheic keratosis; L72.0 Epidermal cyst; L20.84 Intrinsic (allergic) eczema; L73.8 Other specified follicular disorders | CPT/HCPCS: 17000; 17110; 99213 ==

== ENCOUNTER 2022-10-26 08:45 | Outpatient (CLI) | payer MEDICARE, SELFPAY ==
[2022-10-26 09:30] LABS: Blood Urea Nitrogen 17 mg/dL (8-23)
--- NOTE | 2022-10-26 09:30 | CT_ITS ---
WS: [id number] CT ABDOMEN AND PELVIS WITH CONTRAST HISTORY: marginal zone lymphoma TECHNIQUE: Imaging performed of the abdomen and pelvis with IV contrast. Single phase imaging of the abdomen. Coronal and sagittal reformats are submitted. All CT scans at [facility] use at [address] one of these dose optimization techniques: automated exposure control; mA and/or kV adjustment per patient size (includes targeted exams where dose is matched to clinical indication); or iterative re construction. IV CONTRAST: Omnipaque 350; 100 mL IV. Oral contrast: Yes. DLP: 595.39 mGy.cm COMPARISON: 05/21/2022, 01/29/2022 Lower thorax: Lung bases are clear. Heart is normal size. Diffuse moderate mucosal thickening involvi ng the GE junction. This has progressed since the prior exam. Liver/biliary system: No interval change. No bile duct dilatation. There are a few scattered too smal l to characterize low-attenuation nodules. Portal vein is normal. Gallbladder: Normal. No gallstones or wall thickening. No pericholecystic fluid. Pancreas: Normal size pancreas and pancreatic duct. No adjacent inflammation. Spleen: Normal size spleen. No mass or infarct. Adrenal glands: RIGHT adrenal nodule 17 mm is unchanged since 09/16/2020. Normal LEFT adrenal gland. Right kidney: Normal size kidney. Nonobstructing 6 mm calcification in the mid renal pelvis. No hydro nephrosis. Left kidney: Nonobstructing 5 mm calcification lower pole. No solid mass or obstruction. Aorta: Mild atherosclerosis with no aneurysm. Noncalcified plaque in the distal aorta. No obstruction . Small amount of plaque at the origin of the SMA and celiac axis. LEFT gastric artery arises separat steve from the aorta. Lymphadenopathy: Increasing central mesenteric lymph nodes since the prior study 05/21/2022. The large st confluent cluster in the central mesentery now measures 4.3 x 3.8 cm as compared to 3.3 x 2.7 cm o n 05/21/2022. Overall the number and size of the lymph nodes has increased. There are a few mildly pro minent lymph nodes also at the celiac axis which is slightly greater in size. No retroperitoneal lymp h nodes. Free fluid: None. GI tract: Stomach is distended with food products and contrast. No obstruction. Small bowel anastomot ic sutures in the adjacent previously described small bowel wall thickening has resolved. There is a mildly patulous appearance at the anastomotic sutures. No obstruction. No residual soft tissue mass. Diffuse diverticulosis without acute diverticulitis. Normal appendix. Abdominal wall: Unremarkable abdominal wall. No hernia. Pelvis: No free fluid. Urinary bladder is well distended. Heterogeneous enlarged prostate gland. Bila teral fat-containing inguinal hernias. Bones: Sclerotic focus lateral RIGHT seventh rib. Similar to prior studies. CT/CT abdomen pelvis w con* [id number] IMPRESSION: 1. Increase in size and number of the central mesenteric lymph nodes since 04/27. The largest cluster in the central mesentery now measures 4.3 x 3.8 cm. Increased in size from 3.3 x 2.7 cm. Overall there is been a progression in th e central small bowel mesenteric adenopathy. 2. Complete resolution of the soft tissue at the small bowel surgical anastomo tic site. 3. New circumferential soft tissue thickening at the GE junction which is new since the prior study. This should be further evaluated either with endoscopy o r follow-up CT. 4. Stable RIGHT adrenal nodule. 5. Schafer diverticulosis without acute diverticulitis.1
[2022-10-26] MEDS: iohexol 350 mg/mL 500 mL Btl (per mL) PO (09:31)
[2022-10-26] MEDS: iohexol 350 mg/mL 500 mL Btl (per mL) IV (09:42)
== END 2022-10-26 08:46 | disposition home or self-care (01) ==
LOC: RAD 08:48
PROVIDERS: PCP Internal Medicine; Visit Provider Nurse Practitioner Family
DX: C85.80 Other specified types of non-Hodgkin lymphoma, unspecified site (principal); K57.90 Diverticulosis of intestine, part unspecified, without perforation or abscess without bleeding; E27.9 Disorder of adrenal gland, unspecified
CPT/HCPCS: 74177; 82565; 84520; Q9967

== ENCOUNTER 2022-11-02 10:00 | Oncology outpatient (recurring) (ONCR) | payer MEDICARE, SELFPAY ==
[2022-11-02 10:21] VITALS: BP 162/80; PULSE 51; RESP 18; TEMP 36.4; O2SAT 99
[2022-11-02 10:31] LABS: Basophils % 0.5 %; Eosinophils # 0.3 10^3/uL (0.0-0.8); Eosinophils % 4.6 %; Hematocrit 44.8 % (42.0-52.0); Hemoglobin 14.6 g/dL (11.7-16.6); Lymphocytes # 1.1 10^3/uL (0.8-4.8); Mean Corpuscular HGB Conc 32.6 g/dL (30.0-36.0); Mean Corpuscular Hemoglobin 29.6 pg (28.0-34.0); Mean Corpuscular Volume 90.7 fl (80-94); Monocytes # 0.6 10^3/uL (0.2-0.9); Monocytes % 10.6 %; Neutrophils # 3.85 10^3/uL (1.8-7.7); Nucleated Red Blood Cells % 0 %; Platelet Count 158 10^3/cmm (130-400); Red Blood Count 4.94 10^6/uL (4.1-5.3); Red Cell Distribution Width 12.8 % (12.1-15.1); White Blood Count 5.8 10^3/uL (4.0-10.0)
[2022-11-02 10:49] LABS: Alanine Aminotransferase 26 U/L (0-41); Albumin Level 4.3 g/dL (3.5-5.2); Alkaline Phosphatase 86 U/L (40-130); Anion Gap 12.4 (5-19); Aspartate Amino Transferase 19 U/L (0-40); Blood Urea Nitrogen 16 mg/dL (8-23); Carbon Dioxide 28 mmol/L (22-29); Chloride 104 mmol/L (98-107); Globulin 2.4 g/dL (1.3-4.6); Glucose 82 mg/dL (65-115); Lactate Dehydrogenase 152 U/L (135-225); Osmolality Calculated 288 mOsm/kg (285-295); Potassium 5.4 mmol/L (3.5-5.1); Sodium 139 mmol/L (136-145); Total Bilirubin 0.5 mg/dL (0.15-1.2); Total Protein 6.7 g/dL (6.6-8.7)
== END 2022-11-23 23:59 | disposition home or self-care (01) ==
PROVIDERS: Nurse Practitioner Family; PCP Internal Medicine; Visit Provider Internal Medicine Medical Oncology
DX: C85.80 Other specified types of non-Hodgkin lymphoma, unspecified site (principal); Z87.891 Personal history of nicotine dependence; C85.88 Other specified types of non-Hodgkin lymphoma, lymph nodes of multiple sites; Z90.49 Acquired absence of other specified parts of digestive tract; N20.0 Calculus of kidney; R30.0 Dysuria; Z79.2 Long term (current) use of antibiotics; H53.8 Other visual disturbances
CPT/HCPCS: 36415; 80053; 83615; 85025; 99214

== ENCOUNTER → 2022-12-30 15:21 | Outpatient (BNVA) | payer MEDICARE, SELFPAY | PROVIDERS: PCP Internal Medicine; Visit Provider Internal Medicine Medical Oncology | DX: C85.80 Other specified types of non-Hodgkin lymphoma, unspecified site (principal) | CPT/HCPCS: 99214 ==

== ENCOUNTER → 2023-01-19 14:52 | Outpatient (BNVA) | payer MEDICARE, SELFPAY | PROVIDERS: PCP Internal Medicine; Visit Provider Nurse Practitioner Family | DX: L73.8 Other specified follicular disorders (principal); L82.1 Other seborrheic keratosis; L72.0 Epidermal cyst; L82.0 Inflamed seborrheic keratosis; L53.8 Other specified erythematous conditions; B07.8 Other viral warts; L91.8 Other hypertrophic disorders of the skin | CPT/HCPCS: 10060; 11200; 17110; 99214 ==

== ENCOUNTER 2023-01-26 14:07 | Outpatient (CLI) | payer MEDICARE, SELFPAY ==
--- NOTE | 2023-01-26 08:00 | PETR_ITS ---
PROCEDURE INFORMATION: Exam: PET/CT Skull Base to Mid-thigh Exam date and time: 01/26/2023 8:22 AM Age: 82 years old Clinical indication: Condition or disease; Primary cancer: Non hodgkins lymphoma; Follow-up oncological assessment; Prior surgery; Surgery date: 6+ months; Surgery type: Small intestines; Additional info: Restaging LABS AND CLINICAL REPORTS: Glucose: 96 mg/dl Treatment strategy for malignancy (PET staging): Restaging (PS) TECHNIQUE: Imaging protocol: Following at least four-hour fasting and following the injection of radiopharmaceutical, low dose CT images were obtained. Then, PET images were obtained. Attenuation corrected images were constructed using the CT scan. Fused images of PET and CT were reviewed. The standardized uptake values (SUV) reported below are maximum values within a region of interest, expressed in gm/ml. Exam includes orbital meatal line to mid-thigh. Radiopharmaceutical: 12.55 mCi F-18 FDG (Fluorodeoxyglucose), IV. Time of imaging post radiopharmaceutical administration: 1 hour Injection site: site COMPARISON: 1. CT abdomen pelvis 10/26/2022 2. PT PET Scan 02/28/2022 8:39 AM FINDINGS: Brain: Visualized brain has normal physiologic uptake. Pharynx: No abnormal uptake. Larynx: No abnormal uptake. Lungs, pleura and trachea: No abnormal uptake. Heart: Worsening borderline cardiomegaly. Transverse cardiac diameter is 13.6 cm (previously 13.1 cm). Mediastinal space: No abnormal uptake. Liver: No abnormal uptake. Gallbladder and bile ducts: No abnormal uptake. Pancreas: No abnormal uptake. Spleen: No abnormal uptake. Adrenal glands: A stable right adrenal nodule is not FDG avid. It has an maximum SUV of only 2.1. It is most likely an adenoma. Normal left adrenal. Kidneys and ureters: Nonobstructing 10 mm calyceal stone in the mid right kidney. Nonobstructing 5 mm calyceal stone in the lower left kidney. The kidneys and ureters are otherwise unremarkable. Stomach and bowel: FDG avid malignant tumor in the anterior wall of the hepatic flexure of the colon is 2.0 x 2.8 x 2.3 cm (previously 1.2 x 1.9 x 1.5 cm on the PET/CT on 02/28/2022, but not reported) (image 134). Its maximum SUV is 7.6, previously 6.2. It is nonspecific. It is most likely non-Hodgkin's lymphoma, but a primary colonic malignancy cannot be excluded. There is no increased FDG uptake at the gastroesophageal junction, where new circumferential soft tissue thickening was described in the CT report on 10/26/2022. Diverticulosis without diverticulitis in the descending and sigmoid colon. Uncomplicated small bowel anastomosis in the mid abdomen (image 187). Reproductive: Moderate prostate enlargement. TURP defect. Vasculature: The abdominal aorta is 2.2 cm. Lymph nodes: Progression of central small bowel mesenteric adenopathy, which have increased in size, number and FDG avidity. The largest mesenteric mass is anterior to the inferior vena cava at the L3 level. It is 4.3 x 3.8 x 3.7 cm, previously 1.8 x 2.6 x 2.1 cm (transverse x ant-post x craniocaudal) (image 160). Its maximum SUV is 8.9, previously 7.3. Retroperitoneal and mediastinal left lymph nodes continue to be radiographically benign and FDG negative. Bones/joints: No metabolically active areas. Soft tissues: Stable fat containing left inguinal hernia. [id number] IMPRESSION: 1. Progression of central small bowel mesenteric adenopathy, which have increased in size, number and FDG avidity. The largest mesenteric mass is 4.3 x 3.8 x 3.7 cm, previously 1.8 x 2.6 x 2.1 cm. Its maximum SUV is 8.9, previously 7.3. 2. FDG avid malignant tumor in the anterior wall of the hepatic flexure of the colon is 2.0 x 2.8 x 2.3 cm, previously 1.2 x 1.9 x 1.5 cm on the PET/CT on 02/28/2022 (image 134). Its maximum SUV is 7.6, previously 6.2. It is nonspecific. It is most likely non-Hodgkin's lymphoma, but a primary colonic malignancy cannot be excluded. 3. Retroperitoneal and mediastinal left lymph nodes continue to be radiographically benign and FDG negative. 4. No abnormal FDG uptake at the gastroesophageal junction, where new circumferential soft tissue thickening was described in the CT report on 10/26/2022. 5. Stable bilateral nonobstructive nephrolithiasis. 6. Stable stable right adrenal nodule is not FDG avid is most likely an adenoma. 7. Stable fat containing left inguinal hernia. 8. Stable diverticulosis without diverticulitis in the descending and sigmoid colon. 9. Worsening borderline cardiomegaly.
== END 2023-01-26 14:08 | disposition home or self-care (01) ==
LOC: RAD 14:08
PROVIDERS: PCP Internal Medicine; Visit Provider Internal Medicine Medical Oncology
DX: C85.99 Non-Hodgkin lymphoma, unspecified, extranodal and solid organ sites (principal)
CPT/HCPCS: 78815; A9552

== ENCOUNTER → 2023-02-03 08:04 | Outpatient (BNVA) | payer MEDICARE, SELFPAY | PROVIDERS: PCP Internal Medicine; Visit Provider Dermatology | DX: D48.5 Neoplasm of uncertain behavior of skin (principal); R20.8 Other disturbances of skin sensation; R23.8 Other skin changes; L53.8 Other specified erythematous conditions | CPT/HCPCS: 11102; 11403; 12032 ==

== ENCOUNTER → 2023-05-25 12:09 | Day surgery (SDC) | payer MEDICARE, SELFPAY ==
[2023-05-24 14:32] VITALS: BMI 28.8
--- NOTE | 2023-05-25 10:46 | XR_ITS ---
WS: [id number] PORTABLE CHEST x 2 HISTORY: Post PICC insertion COMPARISON: 10/28/2016 Right-sided PICC line has been placed. Initially the PICC line was seen in the RIGHT atrium. PICC leonardo e was retracted 3 cm and now is in optimal position. Lung volumes are decreased with mild interstitial thickening. No pleural effusion or pneumothorax. Cardiac size: Normal. Mediastinum/Aorta: Widening of the mediastinum. Thoracic aorta is ectatic with calcification. No osseous abnormality seen. IMPRESSION: Satisfactory position right-sided PICC line.
[2023-05-25 12:20] VITALS: BP 162/104; PULSE 66; RESP 18; TEMP 36.1; O2SAT 98
== END ==
PROVIDERS: PCP Internal Medicine; Visit Provider Internal Medicine Medical Oncology
DX: Z45.2 Encounter for adjustment and management of vascular access device (principal)
CPT/HCPCS: 36573; 71045

== ENCOUNTER 2023-05-26 08:00 | Oncology outpatient (recurring) (ONCR) | payer MEDICARE, SELFPAY ==
[2023-05-03 10:07] VITALS: BP 134/72; PULSE 55; RESP 16; TEMP 36.2; O2SAT 99
[2023-05-03 10:21] LABS: Basophils % 0.2 %; Eosinophils # 0.5 10^3/uL (0.0-0.8); Eosinophils % 8.5 %; Hematocrit 40.9 % (37-53); Lymphocytes # 0.8 10^3/uL (0.8-4.8); Lymphocytes % 12.9 %; Mean Corpuscular HGB Conc 33.3 g/dL (30-55); Mean Corpuscular Volume 90.1 fl (82-101); Mean Platelet Volume 10.8 fL (7.4-10.4); Monocytes # 0.5 10^3/uL (0.2-0.9); Monocytes % 8.5 %; Neutrophils # 4.33 10^3/uL (1.8-7.7); Neutrophils % 69.7 %; Nucleated Red Blood Cells % 0 %; Platelet Count 148 10^3/cmm (157-399); Red Blood Count 4.54 10^6/uL (3.85-5.65); Red Cell Distribution Width 12.8 % (12.1-15.1); White Blood Count 6.21 10^3/uL (3.29-11.43)
[2023-05-03 10:55] LABS: Carcinoembryonic Antigen 2.4 ng/mL (0.0-4.7)
[2023-05-03 11:06] LABS: Alanine Aminotransferase 20 U/L (0-41); Albumin Level 4.1 g/dL (3.5-5.2); Alkaline Phosphatase 86 U/L (40-130); Anion Gap 12.4 (5-19); Aspartate Amino Transferase 18 U/L (0-40); Blood Urea Nitrogen 20 mg/dL (8-23); Calcium 9.3 mg/dL (8.5-10.5); Carbon Dioxide 27 mmol/L (22-29); Chloride 105 mmol/L (98-107); Globulin 2.7 g/dL (1.3-4.6); Glucose 86 mg/dL (65-115); Lactate Dehydrogenase 150 U/L (135-225); Osmolality Calculated 292 mOsm/kg (285-295); Potassium 4.4 mmol/L (3.5-5.1); Sodium 140 mmol/L (136-145); Total Bilirubin 0.4 mg/dL (0.15-1.2); Total Protein 6.8 g/dL (6.6-8.7)
[2023-05-26 08:16] LABS: Basophils % 0.2 %; Eosinophils # 0.3 10^3/uL (0.0-0.8); Eosinophils % 4.3 %; Hematocrit 41.5 % (37-53); Lymphocytes # 0.8 10^3/uL (0.8-4.8); Mean Corpuscular HGB Conc 33.5 g/dL (30-55); Mean Corpuscular Hemoglobin 29.9 pg (27-33); Mean Corpuscular Volume 89.2 fl (82-101); Monocytes # 0.4 10^3/uL (0.2-0.9); Monocytes % 6.1 %; Neutrophils # 4.36 10^3/uL (1.8-7.7); Neutrophils % 75.9 %; Nucleated Red Blood Cells % 0 %; Platelet Count 138 10^3/cmm (157-399); Red Blood Count 4.65 10^6/uL (3.85-5.65); White Blood Count 5.75 10^3/uL (3.29-11.43)
[2023-05-26 08:29] VITALS: BP 168/76; PULSE 54; RESP 18; TEMP 36.6; O2SAT 97
[2023-05-26 08:36] LABS: Alanine Aminotransferase 30 U/L (0-41); Alkaline Phosphatase 86 U/L (40-130); Anion Gap 15.2 (5-19); Aspartate Amino Transferase 23 U/L (0-40); Blood Urea Nitrogen 17 mg/dL (8-23); Calcium 9.3 mg/dL (8.5-10.5); Carbon Dioxide 26 mmol/L (22-29); Chloride 104 mmol/L (98-107); Globulin 2.6 g/dL (1.3-4.6); Glucose 197 mg/dL (65-115); Osmolality Calculated 299 mOsm/kg (285-295); Potassium 4.2 mmol/L (3.5-5.1); Sodium 141 mmol/L (136-145); Total Bilirubin 0.4 mg/dL (0.15-1.2); Total Protein 6.6 g/dL (6.6-8.7)
[2023-05-26 08:45] LABS: Lactate Dehydrogenase 169 U/L (135-225)
[2023-05-26] MEDS: sodium chloride 0.9% 250 ML 75 ML IV (10:38)
[2023-05-26] MEDS: acetaminophen 325 mg Tablet 650 MG PO (10:40)
[2023-05-26] MEDS: diphenhydrAMINE 50 mg/mL SDV 1mL 25 MG IVP (10:45)
[2023-05-26] MEDS: ondansetron 2 mg/ML SDV 2 mL 8 MG IVP (10:55)
[2023-05-26 11:25] VITALS: BP 150/79; PULSE 55; RESP 18; TEMP 36.6; O2SAT 92
[2023-05-26 11:55] VITALS: BP 154/70; PULSE 54; RESP 18; TEMP 36.2; O2SAT 97
[2023-05-26] MEDS: BENDAMUSTINE IV (15:02)
[2023-05-26] MEDS: SODIUM CHLORIDE 0.9% IV (15:02)
[2023-05-26 16:20] VITALS: BP 181/77; PULSE 98; RESP 18; TEMP 36.6; O2SAT 98
== END 2023-05-26 23:59 | disposition home or self-care (01) ==
PROVIDERS: PCP Internal Medicine; Visit Provider Internal Medicine Medical Oncology
DX: Z53.9 Procedure and treatment not carried out, unspecified reason (principal); C18.4 Malignant neoplasm of transverse colon; C85.86 Other specified types of non-Hodgkin lymphoma, intrapelvic lymph nodes; Z79.899 Other long term (current) drug therapy; Z51.12 Encounter for antineoplastic immunotherapy; Z51.11 Encounter for antineoplastic chemotherapy; Z79.52 Long term (current) use of systemic steroids; Z45.2 Encounter for adjustment and management of vascular access device
CPT/HCPCS: 36415; 36573; 71045; 80053; 82378; 83615; 85025; 96365; 96367; 96375; 96413; 96415; 99214; 99215; J1100; J1200; J2405; J7040; J7050; J9034; Q5115

== ENCOUNTER 2023-06-23 08:00 | Oncology outpatient (recurring) (ONCR) | payer MEDICARE, SELFPAY ==
[2023-05-27 08:20] VITALS: BP 145/72; PULSE 62; RESP 18; TEMP 36.6; O2SAT 96
[2023-05-27] MEDS: sodium chloride 0.9% 250 ML 75 ML IV (08:58)
[2023-05-27] MEDS: palonosetron 0.25 mg/5 mL SDV IVP (09:06)
[2023-05-27] MEDS: BENDAMUSTINE IV (09:43)
[2023-05-27] MEDS: SODIUM CHLORIDE 0.9% IV (09:43)
[2023-05-27 11:00] VITALS: BP 145/78; PULSE 74; RESP 18; TEMP 36.6; O2SAT 98
[2023-05-31] MEDS: sodium chloride 0.9% 1,000 ML 999 ML IV (09:22)
[2023-05-31] MEDS: dexamethasone 10 mg/mL INJ 6 MG IVP (09:22)
[2023-05-31] MEDS: meclizine 25 mg tablet PO (09:31)
[2023-05-31 10:41] VITALS: BP 153/79; PULSE 60; RESP 16; TEMP 36.4; O2SAT 94
[2023-06-02 10:58] LABS: Basophils % 0.2 %; Eosinophils # 0.1 10^3/uL (0.0-0.8); Eosinophils % 0.7 %; Hematocrit 41.8 % (37-53); Lymphocytes # 0.2 10^3/uL (0.8-4.8); Lymphocytes % 1.9 %; Mean Corpuscular HGB Conc 34.2 g/dL (30-55); Mean Corpuscular Hemoglobin 30.7 pg (27-33); Mean Corpuscular Volume 89.7 fl (82-101); Mean Platelet Volume 11.3 fL (7.4-10.4); Monocytes # 1.1 10^3/uL (0.2-0.9); Monocytes % 11.9 %; Neutrophils # 7.58 10^3/uL (1.8-7.7); Neutrophils % 84.4 %; Nucleated Red Blood Cells % 0 %; Platelet Count 163 10^3/cmm (157-399); Red Blood Count 4.66 10^6/uL (3.85-5.65); Red Cell Distribution Width 13.1 % (12.1-15.1); White Blood Count 8.98 10^3/uL (3.29-11.43)
[2023-06-23 08:24] LABS: Basophils % 0.5 %; Eosinophils # 0.1 10^3/uL (0.0-0.8); Eosinophils % 2.1 %; Hematocrit 40.8 % (37-53); Lymphocytes # 0.3 10^3/uL (0.8-4.8); Lymphocytes % 5.2 %; Mean Corpuscular HGB Conc 34.3 g/dL (30-55); Mean Corpuscular Hemoglobin 30.6 pg (27-33); Mean Corpuscular Volume 89.1 fl (82-101); Mean Platelet Volume 10.6 fL (7.4-10.4); Monocytes # 0.5 10^3/uL (0.2-0.9); Monocytes % 9.2 %; Neutrophils # 4.65 10^3/uL (1.8-7.7); Neutrophils % 82.6 %; Nucleated Red Blood Cells % 0 %; Platelet Count 124 10^3/cmm (157-399); Red Blood Count 4.58 10^6/uL (3.85-5.65); Red Cell Distribution Width 14.1 % (12.1-15.1); White Blood Count 5.63 10^3/uL (3.29-11.43)
[2023-06-23 09:15] LABS: Alanine Aminotransferase 56 U/L (0-41); Albumin Level 4.1 g/dL (3.5-5.2); Alkaline Phosphatase 95 U/L (40-130); Anion Gap 11.6 (5-19); Aspartate Amino Transferase 31 U/L (0-40); Blood Urea Nitrogen 15 mg/dL (8-23); Carbon Dioxide 28 mmol/L (22-29); Chloride 105 mmol/L (98-107); Creatinine Clr Calc Pharmacy 71.7433; Globulin 2.9 g/dL (1.3-4.6); Glucose 82 mg/dL (65-115); Osmolality Calculated 290 mOsm/kg (285-295); Potassium 4.6 mmol/L (3.5-5.1); Sodium 140 mmol/L (136-145); Total Bilirubin 0.4 mg/dL (0.15-1.2)
[2023-06-23] MEDS: sodium chloride 0.9% 250 ML 75 ML IV (10:09)
[2023-06-23] MEDS: acetaminophen 325 mg Tablet 650 MG PO (10:33)
[2023-06-23] MEDS: diphenhydrAMINE 50 mg/mL SDV 1mL 25 MG IVP (10:35)
[2023-06-23] MEDS: ondansetron 2 mg/ML SDV 2 mL 8 MG IVP (10:40)
[2023-06-23] MEDS: BENDAMUSTINE IV (14:09)
[2023-06-23] MEDS: SODIUM CHLORIDE 0.9% IV (14:09)
[2023-06-23 15:47] VITALS: BP 150/84; PULSE 88; RESP 18; TEMP 36.6; O2SAT 98
[2023-06-24 06:57] LABS: Lactate Dehydrogenase 165 U/L (135-225)
== END 2023-06-23 23:59 | disposition home or self-care (01) ==
PROVIDERS: Nurse Practitioner Family; PCP Internal Medicine; Visit Provider Internal Medicine Medical Oncology
DX: Z51.12 Encounter for antineoplastic immunotherapy (principal); Z53.9 Procedure and treatment not carried out, unspecified reason; Z51.11 Encounter for antineoplastic chemotherapy; C85.83 Other specified types of non-Hodgkin lymphoma, intra-abdominal lymph nodes; Z79.52 Long term (current) use of systemic steroids; Z79.899 Other long term (current) drug therapy; Z90.49 Acquired absence of other specified parts of digestive tract; Z85.038 Personal history of other malignant neoplasm of large intestine; Z87.891 Personal history of nicotine dependence
CPT/HCPCS: 36415; 36591; 80053; 83615; 85025; 96361; 96365; 96367; 96368; 96374; 96375; 96413; 96415; 99214; J1100; J1200; J1642; J2405; J2469; J7030; J7040; J7050; J8597; J9034; Q5115

== ENCOUNTER 2023-06-24 12:42 | Oncology outpatient (recurring) (ONCR) | payer MEDICARE, SELFPAY ==
[2023-06-24 13:07] VITALS: BP 145/76; PULSE 77; RESP 18; TEMP 36.9; O2SAT 98
[2023-06-24] MEDS: sodium chloride 0.9% 250 ML 100 ML IV (13:19)
[2023-06-24] MEDS: palonosetron 0.25 mg/5 mL SDV IVP (13:20)
[2023-06-24] MEDS: BENDAMUSTINE IV (13:44)
[2023-06-24] MEDS: SODIUM CHLORIDE 0.9% IV (13:44)
[2023-06-24 15:12] VITALS: BP 165/76; PULSE 91; O2SAT 95
== END 2023-06-24 23:59 | disposition home or self-care (01) ==
LOC: ONCMED 12:42
PROVIDERS: PCP Internal Medicine; Visit Provider Internal Medicine Medical Oncology
DX: C85.80 Other specified types of non-Hodgkin lymphoma, unspecified site; Z51.11 Encounter for antineoplastic chemotherapy
CPT/HCPCS: 96367; 96375; 96413; J1100; J1642; J2469; J7040; J7050; J9034

== ENCOUNTER 2023-07-21 08:00 | Oncology outpatient (recurring) (ONCR) | payer MEDICARE, SELFPAY ==
[2023-07-14 08:51] VITALS: BP 136/76; PULSE 72; RESP 18; TEMP 36.6; O2SAT 96
[2023-07-21 08:51] LABS: Basophils % 1.1 %; Eosinophils # 0.2 10^3/uL (0.0-0.8); Eosinophils % 7.7 %; Hematocrit 37.6 % (37-53); Lymphocytes # 0.3 10^3/uL (0.8-4.8); Lymphocytes % 11.1 %; Mean Corpuscular HGB Conc 34.3 g/dL (30-55); Mean Corpuscular Hemoglobin 31.3 pg (27-33); Mean Corpuscular Volume 91.3 fl (82-101); Mean Platelet Volume 10.9 fL (7.4-10.4); Monocytes # 0.6 10^3/uL (0.2-0.9); Monocytes % 23.2 %; Neutrophils # 1.51 10^3/uL (1.8-7.7); Neutrophils % 55.8 %; Nucleated Red Blood Cells % 0 %; Platelet Count 102 10^3/cmm (157-399); Red Blood Count 4.12 10^6/uL (3.85-5.65); Red Cell Distribution Width 15.9 % (12.1-15.1); White Blood Count 2.71 10^3/uL (3.29-11.43)
[2023-07-21 09:43] LABS: Alanine Aminotransferase 63 U/L (0-41); Albumin Level 4.4 g/dL (3.5-5.2); Alkaline Phosphatase 87 U/L (40-130); Anion Gap 12.5 (5-19); Aspartate Amino Transferase 35 U/L (0-40); Blood Urea Nitrogen 14 mg/dL (8-23); Calcium 9.2 mg/dL (8.5-10.5); Carbon Dioxide 27 mmol/L (22-29); Chloride 106 mmol/L (98-107); Creatinine Clr Calc Pharmacy 80.8529; Globulin 2.9 g/dL (1.3-4.6); Glucose 112 mg/dL (65-115); Lactate Dehydrogenase 233 U/L (135-225); Osmolality Calculated 293 mOsm/kg (285-295); Potassium 4.5 mmol/L (3.5-5.1); Sodium 141 mmol/L (136-145); Total Bilirubin 0.4 mg/dL (0.15-1.2); Total Protein 7.3 g/dL (6.6-8.7)
== END 2023-07-25 23:59 | disposition home or self-care (01) ==
PROVIDERS: Nurse Practitioner Family; PCP Internal Medicine; Visit Provider Internal Medicine Medical Oncology
DX: C85.80 Other specified types of non-Hodgkin lymphoma, unspecified site (principal); Z53.9 Procedure and treatment not carried out, unspecified reason; C18.4 Malignant neoplasm of transverse colon; Z79.899 Other long term (current) drug therapy
CPT/HCPCS: 80053; 83615; 85025; 99214; J1642

== ENCOUNTER 2023-07-28 10:00 | Outpatient (CLI) | payer MEDICARE, SELFPAY ==
[2023-07-28] MEDS: iohexol 300 mg/mL 100 mL Btl PO (09:32)
== END 2023-07-28 10:01 ==
LOC: RAD 09-22 09:14
PROVIDERS: PCP Internal Medicine; Visit Provider Internal Medicine Medical Oncology
DX: Z01.89 Encounter for other specified special examinations (principal); R59.0 Localized enlarged lymph nodes; K57.90 Diverticulosis of intestine, part unspecified, without perforation or abscess without bleeding; N20.0 Calculus of kidney
CPT/HCPCS: 74177; Q9967

== ENCOUNTER → 2023-07-30 11:31 | Day surgery (SDC) | payer MEDICARE, SELFPAY ==
[2023-07-30 11:30] VITALS: BP 140/105; PULSE 67; RESP 18; TEMP 36.5; O2SAT 98
--- NOTE | 2023-07-30 11:39 | XR_ITS ---
WS: [email or web address] Examination: XR chest 1V portable [id number] Reason for Exam: Post PICC insertion Date: July 30, 2023 Comparison: May 25, 2023 Findings: 2 films are presented for interpretation The first film demonstrates the PICC over the mid atrium. The second film demonstrates the PICC posit ioned in the lower SVC. The heart is not grossly enlarged There is no failure or effusion. There is no dense consolidative change. Impression: Final images demonstrate a well-positioned PICC.
--- NOTE | 2023-07-30 12:40 | PC.NURSE ---
Double lumen PICC placed to right basilic vein. Referred to vascular access nurse for PICC placement due to need for chemotherapy. Pt is a CTC patient that had a previous PICC placed in April of this year and accidentally pulled it out yesterday. Risks and benefits discussed with patient and informed consent obtained. Previous site where PICC removed in right arm noted to have occlusive dressing in place. Dressing removed. Old site without hematoma, bruising, or signs of infection. Right arm assessed with right basilic vein measuring 5.4 mm, straight, and without clot or thrombosis noted. Using sterile technique and MST, right basilic vein accessed proximal to old insertion site x 1 stick. Mid-arm circumference measured 10 cm from right AC 29 cm. Trimmed cath 33 cm with 0 cm external length noted. CXR shows tip in distal SVC, in good position for use per radiologist. Line secured with stat-lock. Insertion site covered with Biopatch and TSM. [facility] and to resume chemotherapy treatments at that time.
== END ==
PROVIDERS: PCP Internal Medicine; Visit Provider Internal Medicine Medical Oncology
DX: Z45.2 Encounter for adjustment and management of vascular access device (principal)
CPT/HCPCS: 36573; 71045

== ENCOUNTER 2023-08-09 08:15 | Oncology outpatient (recurring) (ONCR) | payer MEDICARE, SELFPAY ==
--- NOTE | 2023-07-28 10:00 | CT_ITS ---
WS: [email or web address] Examination: CT abdomen pelvis w con* [id number] Reason for Exam: restaging Date: July 28, 2023 Comparison: Noncontrast CT dated 01/26/2023 DLP: 538.[address] scans at [facility] use at least one of these dose optimization techniques: automated e xposure control; mA and/or kV adjustment per patient size (includes targeted exams where dose is matc hed to clinical indication); or iterative reconstruction. Findings: The heart is prominent in size. There is no pleural effusion. There is minimal peripheral basilar sca rring The liver is normal in size and appearance the gallbladder is present. The portal vein is patent. The spleen is unchanged and not grossly enlarged. There is a stable 2 cm right adrenal nodule. The left adrenal gland is unremarkable. The kidneys are well-perfused. There are nonobstructing stones bilaterally. There is no hydronephrosi s or mass The aorta is not enlarged. There is extensive soft and calcified plaque involving the aorta. Abdomina l arterial calcification is noted. The pancreas is unremarkable. Again adenopathy is identified. This is dominant in the mesenteric region. This appears very similar to the previous studies. The dominant cluster again measures slightly greater than 4 x 4 cm. There is no small bowel obstruction. There is increased stool in the colon. There is diverticulosis. There is no free fluid or free air. There is a hiatal hernia with thickening of the lower esophagus. The prostate is significantly enlarged and inhomogenous. There is a fat-containing dominant left inguinal hernia. Diffuse lower thoracic and lumbar degenerative changes are again noted. Impression: Persistent dominant mesenteric adenopathy. This is similar to the previous study. Persistent distal esophageal thickening is noted. Uncomplicated diverticulosis is present. The right adrenal nodule is generally unchanged. Nonobstruct ing renal calculi are identified.
[2023-07-28] MEDS: iohexol 350 mg/mL 500 mL Btl (per mL) IV (10:36)
[2023-07-28] MEDS: iohexol 300 mg/mL 100 mL Btl PO (10:38)
[2023-07-29 11:14] VITALS: BP 129/72; PULSE 66; RESP 16; TEMP 36.3; O2SAT 95
[2023-07-29 11:52] LABS: Basophils % 0.6 %; Eosinophils # 0.2 10^3/uL (0.0-0.8); Eosinophils % 13.5 %; Hematocrit 35.4 % (37-53); Lymphocytes # 0.3 10^3/uL (0.8-4.8); Lymphocytes % 16.8 %; Mean Corpuscular HGB Conc 34.7 g/dL (30-55); Mean Corpuscular Volume 92.2 fl (82-101); Mean Platelet Volume 9.8 fL (7.4-10.4); Monocytes # 0.6 10^3/uL (0.2-0.9); Monocytes % 37.4 %; Neutrophils % 30.4 %; Nucleated Red Blood Cells % 0 %; Platelet Count 126 10^3/cmm (157-399); Red Blood Count 3.84 10^6/uL (3.85-5.65); Red Cell Distribution Width 16.4 % (12.1-15.1); White Blood Count 1.55 10^3/uL (3.29-11.43)
[2023-07-29 11:55] LABS: Neutrophils # 0.47 10^3/uL (1.8-7.7)
[2023-07-29 12:07] LABS: Alanine Aminotransferase 50 U/L (0-41); Albumin Level 4.2 g/dL (3.5-5.2); Alkaline Phosphatase 80 U/L (40-130); Anion Gap 13.3 (5-19); Aspartate Amino Transferase 28 U/L (0-40); Blood Urea Nitrogen 18 mg/dL (8-23); Calcium 8.9 mg/dL (8.5-10.5); Carbon Dioxide 27 mmol/L (22-29); Chloride 102 mmol/L (98-107); Globulin 2.3 g/dL (1.3-4.6); Glucose 133 mg/dL (65-115); Osmolality Calculated 290 mOsm/kg (285-295); Potassium 4.3 mmol/L (3.5-5.1); Sodium 138 mmol/L (136-145); Total Bilirubin 0.5 mg/dL (0.15-1.2); Total Protein 6.5 g/dL (6.6-8.7)
--- NOTE | 2023-07-29 12:38 | PC.NURSE ---
Pts PICC line out 9cm. Notes from insertion state 0cm external catheter. Verbal orders from Dr. Esqueda to remove PICC line. Removed pts PICC line, 38cm removed, tip in tact. Pt tolerated well. JW
[2023-07-29] MEDS: filgrastim-sndz 480 mcg/0.8 mL Syringe SUBCUT (14:04)
[2023-07-30] MEDS: filgrastim-sndz 480 mcg/0.8 mL Syringe SUBCUT (11:23)
[2023-07-30 11:26] VITALS: BP 137/81; PULSE 75; RESP 16; TEMP 36.6; O2SAT 99
[2023-08-02 10:30] LABS: Basophils % 1.1 %; Eosinophils # 0.3 10^3/uL (0.0-0.8); Eosinophils % 7.8 %; Hematocrit 37.7 % (37-53); Lymphocytes # 0.4 10^3/uL (0.8-4.8); Lymphocytes % 11.1 %; Mean Corpuscular HGB Conc 34.7 g/dL (30-55); Mean Corpuscular Hemoglobin 32.6 pg (27-33); Mean Corpuscular Volume 93.8 fl (82-101); Mean Platelet Volume 10.9 fL (7.4-10.4); Monocytes # 1.8 10^3/uL (0.2-0.9); Monocytes % 49.2 %; Neutrophils % 26.6 %; Nucleated Red Blood Cells % 0 %; Platelet Count 139 10^3/cmm (157-399); Red Blood Count 4.02 10^6/uL (3.85-5.65); Red Cell Distribution Width 17.6 % (12.1-15.1)
[2023-08-02 10:38] LABS: Neutrophils # 0.96 10^3/uL (1.8-7.7)
[2023-08-02 10:50] LABS: Alanine Aminotransferase 45 U/L (0-41); Albumin Level 4.3 g/dL (3.5-5.2); Alkaline Phosphatase 97 U/L (40-130); Anion Gap 13.4 (5-19); Aspartate Amino Transferase 34 U/L (0-40); Blood Urea Nitrogen 13 mg/dL (8-23); Calcium 9.5 mg/dL (8.5-10.5); Carbon Dioxide 26 mmol/L (22-29); Chloride 106 mmol/L (98-107); Globulin 2.4 g/dL (1.3-4.6); Glucose 107 mg/dL (65-115); Osmolality Calculated 293 mOsm/kg (285-295); Potassium 4.4 mmol/L (3.5-5.1); Sodium 141 mmol/L (136-145); Total Bilirubin 0.3 mg/dL (0.15-1.2); Total Protein 6.7 g/dL (6.6-8.7)
--- NOTE | 2023-08-02 12:49 | ECG_ITS ---
[facility] Test Date: 2023-08-02 Pat Name: Jules Diamond Department: Room: Gender: Male [place] Operator: : 1940 Requested By: Tammie Yoder Order Number: [id number] Rani MD: Evin Boone M.D. Measurements Intervals [place] Rate: 73 P: 14 NE: 157 QRS: -46 QRSD: 105 T: 17 QT: 382 QTc: 423 Interpretive Statements SINUS RHYTHM PATTERN CONSISTENT WITH PULMONARY DISEASE LEFT ANTERIOR FASCICULAR BLOCK [QRS AXIS <= -45, QR IN I, RS IN II] VOLTAGE CRITERIA FOR LVH [MEETS CRITERIA IN ONE OF: R(aVL), S(V1), R(V5), R(V5/V6)+S(V1)] Compared to ECG 11/06/2020 11:36:09 Left anterior fascicular block now present Sinus bradycardia no longer present Electronically Signed On 08-02-2023 13:17:43 CDT by Evin Boone M.D. [email or web address]
[2023-08-02] MEDS: filgrastim-sndz 480 mcg/0.8 mL Syringe SUBCUT (13:10)
[2023-08-02 13:16] VITALS: BP 139/82; PULSE 73; RESP 16; TEMP 36.4; O2SAT 95
[2023-08-09 08:31] LABS: Basophils % 0.2 %; Eosinophils # 0.2 10^3/uL (0.0-0.8); Lymphocytes # 0.3 10^3/uL (0.8-4.8); Lymphocytes % 6.5 %; Mean Corpuscular HGB Conc 33.7 g/dL (30-55); Mean Corpuscular Hemoglobin 31.8 pg (27-33); Mean Corpuscular Volume 94.5 fl (82-101); Mean Platelet Volume 11.3 fL (7.4-10.4); Monocytes # 0.4 10^3/uL (0.2-0.9); Monocytes % 8.3 %; Neutrophils # 4.12 10^3/uL (1.8-7.7); Neutrophils % 81.2 %; Nucleated Red Blood Cells % 0 %; Platelet Count 117 10^3/cmm (157-399); Red Blood Count 4.02 10^6/uL (3.85-5.65); Red Cell Distribution Width 16.4 % (12.1-15.1); White Blood Count 5.07 10^3/uL (3.29-11.43)
[2023-08-09 08:52] LABS: Alanine Aminotransferase 79 U/L (0-41); Alkaline Phosphatase 106 U/L (40-130); Anion Gap 11.6 (5-19); Aspartate Amino Transferase 41 U/L (0-40); Blood Urea Nitrogen 16 mg/dL (8-23); Carbon Dioxide 24 mmol/L (22-29); Chloride 106 mmol/L (98-107); Creatinine Clr Calc Pharmacy 72.0374; Globulin 2.6 g/dL (1.3-4.6); Glucose 177 mg/dL (65-115); Osmolality Calculated 290 mOsm/kg (285-295); Potassium 4.6 mmol/L (3.5-5.1); Sodium 137 mmol/L (136-145); Total Bilirubin 0.5 mg/dL (0.15-1.2); Total Protein 6.6 g/dL (6.6-8.7)
[2023-08-09 09:21] LABS: Lactate Dehydrogenase 230 U/L (135-225)
[2023-08-09] MEDS: sodium chloride 0.9% 250 ML 75 ML IV (12:37)
[2023-08-09] MEDS: diphenhydrAMINE 50 mg/mL SDV 1mL 25 MG IVP (12:38)
[2023-08-09] MEDS: acetaminophen 325 mg Tablet 650 MG PO (12:38)
[2023-08-09] MEDS: ondansetron 2 mg/ML SDV 2 mL 8 MG IVP (12:45)
[2023-08-09 13:10] VITALS: BP 143/75; PULSE 71; RESP 16; TEMP 36.7; O2SAT 92
[2023-08-09 13:30] VITALS: BP 93/61; PULSE 73; RESP 10; TEMP 36.1; O2SAT 80
== END 2023-08-09 23:59 | disposition home or self-care (01) ==
PROVIDERS: Nurse Practitioner Family; PCP Internal Medicine; Visit Provider Internal Medicine Medical Oncology
DX: C85.88 Other specified types of non-Hodgkin lymphoma, lymph nodes of multiple sites (principal); Z53.9 Procedure and treatment not carried out, unspecified reason; C18.4 Malignant neoplasm of transverse colon; R07.89 Other chest pain; Z87.891 Personal history of nicotine dependence; Z90.49 Acquired absence of other specified parts of digestive tract; Z92.25 Personal history of immunosuppression therapy; I44.4 Left anterior fascicular block; Z79.52 Long term (current) use of systemic steroids; Z51.12 Encounter for antineoplastic immunotherapy
CPT/HCPCS: 36573; 36592; 71045; 74177; 80053; 83615; 85025; 93005; 96372; 99213; 99214; J1100; J1200; J2405; J7040; J7050; Q5101; Q5115; Q9967

== ENCOUNTER 2023-08-09 13:39 | Emergency (ER) | payer MEDICARE, SELFPAY ==
[2023-08-09] VITALS (12 sets, daily range): BP systolic 126–140; BP diastolic 69–84; PULSE 67–84; RESP 15–27; TEMP 36.7; O2SAT 85–100; BMI 30.1
--- NOTE | 2023-08-09 13:43 | ECG_ITS ---
[facility] Test Date: 2023-08-09 Pat Name: Jules Diamond Department: Room: Gender: Male Director Of Psychology: : 1940 Requested By: Jem Fernandez Order Number: [id number] Rani MD: Shelby Sun M.D. Measurements Intervals Midway Rate: 72 P: 30 ID: [id number] QRS: -50 QRSD: 116 T: 4 QT: 422 QTc: 465 Interpretive Statements SINUS RHYTHM PATTERN CONSISTENT WITH PULMONARY DISEASE LEFT ANTERIOR FASCICULAR BLOCK [QRS AXIS <= -45, QR IN I, RS IN II] POSSIBLE LEFT VENTRICULAR HYPERTROPHY [VOLTAGE CRITERIA PLUS LAE OR QRS WIDENING] POSSIBLE SEPTAL MYOCARDIAL INFARCTION , OF INDETERMINATE AGE [30 ms Q WAVE IN V1/V2] Compared to ECG 08/02/2023 12:58:23 Myocardial infarct finding now present Electronically Signed On 08-09-2023 19:28:07 CDT by Shelby Sun M.D. [id number]
--- NOTE | 2023-08-09 13:43 | ED_ITS ---
HPI - Allergic Reaction 2 General: Chief complaint: Syncope Stated complaint: Rapid Response Time Seen by Provider: 08/09/23 13:42 Source: patient Mode of arrival: other ([facility]) History of Present Illness: HPI narrative: 82-year-old male presents emergency room with complaints of reaction to medication. He is at the infusion center for syncopal episode and severe shortness of breath shortly after an infusion of rituximab was started. He is being treated for lymphoma. He had been premedicated with 12 mg dexamethasone 25 of IV Benadryl and 625 of Tylenol. This is not the first reaction he has had. When he arrives here he is on rebreather mask at 10 L/min. He was titrated down to 6 L/min on nasal cannula and tolerated well. He denies any chest pain. 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 Urolithiasis Low back pain Reflux esophagitis Essential (primary) hypertension BPH (benign prostatic hyperplasia) Bradycardia Surgical History H/O prostate biopsy S/P small bowel resection (09/30/20) Status post colonoscopy History of lung biopsy History of bilateral cataract extraction History of vasectomy History of right knee surgery Family History Mother , in her 50's Accidental Father , at age 89 Heart attack Other Diabetes Stroke Social History Smoking and tobacco/nicotine status: former use of tobacco/nicotine (Was an occasional smoker, does not smoke now) Quit status (tobacco/nicotine): has quit using Year quit tobacco: 60+ years prior Former quit date comment: only used some during teenage years Alcohol intake: current Alcohol intake frequency: holidays/special occasions only Substance/Drug Use: never Marital status: Current occupational status: retired Physical Exam 2 Const: COMMON NORMALS: no acute distress GENERAL APPEARANCE: cooperative and comfortable ORIENTATION/CONSCIOUSNESS: Yes awake, Yes oriented to person, Yes oriented to place and Yes oriented to time HENMT: COMMON NORMALS: normocephalic, atraumatic and hearing grossly normal bilaterally HEAD & SCALP: normocephalic and atraumatic Resp: COMMON NORMALS: normal respiratory effort, No retractions, No use of accessory muscles and clear to auscultation bilaterally AUSCULTATION: clear to auscultation bilaterally Cardio: COMMON NORMALS: regular rate, regular rhythm and No murmurs present (Cardio) RATE: regular rate RHYTHM: regular rhythm GI: COMMON NORMALS: Soft to palpation and No hepatosplenomegaly present A USCULTATION: Yes normoactive bowel sounds PALPATION: Yes Soft to palpation, No Tenderness to palpation present (GI), No Guarding due to palpation present (GI) and Yes No hepatosplenomegaly present Extremity: COMMON NORMALS: normal to inspection, capillary refill normal, no clubbing, cyanosis or edema, no calf tenderness and no pedal edema Neuro: SENSORIUM/ORIENTATION: Yes oriented to person, Yes oriented to place and Yes oriented to time Skin: COMMON NORMALS: no rashes or lesions noted GENERAL SKIN EXAM: no rashes or lesions noted Course 2 Vital Signs: Vital signs: Vital Signs Temperature 98.1 F 08/09/23 13:47 Pulse Rate 80 08/09/23 14:20 Respiratory Rate 21 H 08/09/23 14:20 Blood Pressure 140/78 08/09/23 14:20 Pulse Oximetry 94 08/09/23 14:20 Oxygen Delivery Me thod Nasal Cannula 08/09/23 14:20 Oxygen Flow Rate 5 08/09/23 14:20 MDM - Allergic Reaction Medical Decision Making Patient seen today after having a reaction in the infusion center. He states he had a similar reaction before when he is given Benadryl he thinks it is the Benadryl. Certainly can have a narcotic and sedating effect could have caused the symptoms he is describing he was getting rituximab at the time he was given the fusion. He has gotten that several times in the past. He is doing much better is not having any further symptoms we will discharge him home with a steroid taper cetirizine as needed and follow-up with his primary care or oncology DrMarnie To review how to proceed with his medications. Medical Records I reviewed the patient's medical records. Lab Data I reviewed the patient's lab results. 08/09/23 14:07 08/09/23 14:07 Laboratory Results Specimen Type Arterial 08/09/23 13:51 Sample Site Radial, right 08/09/23 13:51 ABG pH 7.39 (7.35-7.45) 08/09/23 13:51 ABG pCO2 36.8 mmHg (35-45) 08/09/23 13:51 ABG pO2 81.0 mmHg (80.0-100.0) 08/09/23 13:51 ABG HCO3 22.0 mmol/L (22-26) 08/09/23 13:51 ABG O2 Saturation 97.1 08/09/23 13:51 ABG Base Excess -2.6 mmol/L (-2.0-2.0) L 08/09/23 13:51 Moose Test Pos 08/09/23 13:51 A-a O2 Gradient 2.8 mmHg (5-10) L 08/09/23 13:51 Hematocrit 41.6 % (42-52) L 08/09/23 13:51 Hgb O2 Saturation 95.0 % (95-100) 08/09/23 13:51 Carboxyhemoglobin 1.4 %THgb (0.4-20.1) 08/09/23 13:51 Methemoglobin 0.8 % (0.4-1.5) 08/09/23 13:51 Total Hemoglobin 13.6 g/dL (14-18) L 08/09/23 13:51 Sodium 138.0 mmol/L (131-143) 08/09/23 13:51 Potassium 3.5 mmol/L (3.5-5.0) 08/09/23 13:51 Glucose 151.0 mg/dL (70-115) H 08/09/23 13:51 Ionized Calcium 1.1 mmol/L (1.1-1.4) 08/09/23 13:51 O2 Delivery Device Nc 08/09/23 13:51 O2 Liters/Min 5.0 % 08/09/23 13:51 Journeyman Patternmaker ID Anival 08/09/23 13:51 Troponin T Baseline 11 ng/L (0-15) 08/09/23 14:07 All radiology interpretation(s) finalized by discharge Discharge Plan Discharge Patient Disposition: Home Clinical Impression: Medication adverse effect Prescriptions: New Medrol (Garrison) 4 mg tablets,dose pack See Rx Instructions .ROUTE .COMPLEX Qty: 21 0RF Rx Instructions: orally per package directions cetirizine 10 mg tablet 10 mg PO BID Qty: 20 0RF No Action aspirin [Adult Low Dose Aspirin] 81 mg tablet,delayed release (DR/EC) 81 mg PO DAILY Hold Instructions: Resume on 11/11/20. sildenafil 100 mg tablet 100 mg PO DAILY PRN (Reason: sexual activity) Qty: 10 12RF Rx Instructions: 1 hour before intercourse on empty stomach. NO NITROGLYCERIN! lorazepam 1 mg tablet 0.5 - 1 mg PO Q6H PRN (Reason: Severe Nausea) Qty: 30 3RF hydrocodone-acetaminophen 5-325 mg tablet 1 tab PO Q8H PRN (Reason: Pain) PreserVision AREDS-2 250-90-40-1 mg tablet,chewable 1 tab PO BID allopurinol 300 mg tablet 300 mg PO DAILY meclizine 25 mg tablet 25 mg PO QID PRN (Reason: dizziness) Qty: 60 1RF fluconazole [Diflucan] 100 mg tablet 100 mg PO DAILY Qty: 90 2RF ondansetron HCl 4 mg Tablet 4 mg PO QID PRN (Reason: Nausea/vomiting) Qty: 30 3RF prochlorperazine maleate [Compazine] 10 mg tablet 10 mg PO Q4H PRN (Reason: Mild Nausea) Qty: 30 3RF valacyclovir 500 mg tablet 500 mg PO BID Qty: 60 5RF Rx Instructions: Continue 3 months post treatment for prevention of viral infection. sulfamethoxazole-trimethoprim [Bactrim DS] 800-160 mg tablet 1 tab PO MOWEFR Qty: 24 5RF nifedipine 30 mg tablet extended release 30 mg PO DAILY simvastatin 40 mg tablet 40 mg PO BEDTIME clotrimazole-betamethasone 1-0.05 % cream 1 applic topical BID PRN (Reason: Outbreak) acetaminophen 500 mg Tablet 1,000 mg PO Q6H PRN (Reason: Pain) Discharge Orders: Discharge ED (Routine); Ordered 08/09/23 Ordered By: Jem Latham Referrals: Db Guido MD [Primary Care Provider] - Discharge Diet: Usual diet Discharge Activity: Increase activity as tolerated Patient Instructions: Opioid Safety, Pain Management Activity Restrictions/Additional Instructions: Thank you for choosing [facility] for your healthcare needs today. Please realize this is an emergency room and that we are providing you with a medical screening exam and this may not be complete and all inclusive of all the testing and or work up that you may need to determine your ailment or severity of your illness. It is very important that you follow up as instructed or that you return to the Emergency Department should you have concerns or if your condition changes or worsens in any way. You are seen today after reaction to infusions. He had reported to us that he had a similar reaction previously with diphenhydramine. Diphenhydramine can have very sedating and even narcotic like effect when given IV. You should follow-up with your oncology team and review your symptoms to determine whether or not they should avoid this or other medications in the future. Coding Level of Care Code ED Credit Control Officer for Fredi Harper
[2023-08-09 14:02] LABS: ABG PCO2 36.8 mmHg (35-45); ABG PH Result 7.39 (7.35-7.45); Alveolar-Arterial Oxygen Gradi 2.8 mmHg (5-10); Arterial Blood Gas Hematocrit 41.6 % (42-52); Base Excess ABG -2.6 mmol/L (-2.0-2.0); Blood Gas Allen Test Pos; Blood Gas Operator Identificat WALCI; Blood Gas Sample Site Radial, right; Blood Gas Sample Type Arterial; Carboxyhemoglobin 1.4 %THgb (0.4-20.1); Ionized Calcium Level - ABG 1.1 mmol/L (1.1-1.4); Methemoglobin 0.8 % (0.4-1.5); Oxygen Device NC; Oxygen Saturation ABG 97.1; Potassium Level - ABG 3.5 mmol/L (3.5-5.0); Total Hemoglobin 13.6 g/dL (14-18)
[2023-08-09 14:33] LABS: Hematocrit 39.5 % (37-53); Mean Corpuscular HGB Conc 34.7 g/dL (30-55); Mean Corpuscular Hemoglobin 32.9 pg (27-33); Mean Platelet Volume 11.5 fL (7.4-10.4); Platelet Count 115 10^3/cmm (157-399); Red Blood Count 4.16 10^6/uL (3.85-5.65); Red Cell Distribution Width 16.7 % (12.1-15.1); White Blood Count 3.48 10^3/uL (3.29-11.43)
[2023-08-09 14:54] LABS: Troponin(5th) Baseline 11 ng/L (0-15)
[2023-08-09 15:07] LABS: Slide Review Slide Review Perform
[2023-08-09 15:08] LABS: Absolute Eosinophils 0.1 10^3/cmm (0.0-0.7); Absolute Neutrophil 2.6 10^3/cmm (1.4-6.5); Absolute Segmented Neutrophil 2.6 10/cmm (1.6-7.1); Eosinophils 4 %; Lymphocytes 12 %; Lymphocytes Absolute 0.4 10^3/cmm (1.2-3.4); Monocytes Absolute 0.1 10^3/cmm (0.1-0.6); Platelet Estimate Decreased (Normal); Segmented Neutrophils 74 %; Total Cells Counted 100 (0-100)
[2023-08-09 15:20] LABS: Alanine Aminotransferase 67 U/L (0-41); Albumin Level 3.8 g/dL (3.5-5.2); Alkaline Phosphatase 100 U/L (40-130); Anion Gap 13.8 (5-19); Aspartate Amino Transferase 33 U/L (0-40); Blood Urea Nitrogen 14 mg/dL (8-23); Calcium 8.2 mg/dL (8.5-10.5); Carbon Dioxide 25 mmol/L (22-29); Chloride 104 mmol/L (98-107); Creatine Phosphokinase 42 U/L (39-308); Creatinine Clr Calc Pharmacy 73.5493; Globulin 2.4 g/dL (1.3-4.6); Glucose 164 mg/dL (65-115); NT Pro B Type Natriuretic Pept 97 pg/mL (0-450); Osmolality Calculated 292 mOsm/kg (285-295); Potassium 3.8 mmol/L (3.5-5.1); Sodium 139 mmol/L (136-145); Total Bilirubin 0.4 mg/dL (0.15-1.2); Total Protein 6.2 g/dL (6.6-8.7)
[2023-08-09 15:48] LABS: Add Urine Culture? No; Add Urine Microscopic? YES; Amorphous Sediment Urine 1+ /hpf; Bacteria Urine TRACE /hpf; Bilirubin Urine Neg (Negative); Blood Urine Neg (Negative); Glucose Urine UA Norm (Normal); Ketones Urine Negative (Negative); Leukocyte Esterase Urine Negative (Negative); Mucus Urine 3+ /hpf; Nitrate Urine Negative (Negative); Protein Urine Trace (Negative); Specific Gravity, Urine 1.025 (1.005-1.030); Squamous Epithelial Cell Urine RARE /hpf (0-5); Urine Appearance Clear (CLEAR); Urine Color Dark Yellow (Yellow); Urobilinogen Urine 1 mg/dL (Negative); WBC Urine RARE /hpf (0-5); pH Urine 5 (5-7)
== END 2023-08-09 15:05 | disposition home or self-care (01) ==
PROVIDERS: Emergency Provider Family Medicine; PCP Internal Medicine
DX: R55 Syncope and collapse (principal); T50.905A Adverse effect of unspecified drugs, medicaments and biological substances, initial encounter; Z79.82 Long term (current) use of aspirin; Z85.038 Personal history of other malignant neoplasm of large intestine; I10 Essential (primary) hypertension; Z87.891 Personal history of nicotine dependence
CPT/HCPCS: 36415; 36600; 80051; 80053; 81001; 82330; 82550; 82805; 83880; 84484; 85007; 85025; 93005; 99284

== ENCOUNTER 2023-08-18 07:51 | Oncology outpatient (recurring) (ONCR) | payer MEDICARE, SELFPAY ==
[2023-08-18 08:12] VITALS: BP 123/64; PULSE 72; RESP 16; TEMP 36.4; O2SAT 99
[2023-08-18 08:41] LABS: Basophils % 0.2 %; Eosinophils # 0.1 10^3/uL (0.0-0.8); Eosinophils % 1.9 %; Hematocrit 38.7 % (37-53); Lymphocytes # 0.3 10^3/uL (0.8-4.8); Lymphocytes % 5.8 %; Mean Corpuscular HGB Conc 34.1 g/dL (30-55); Mean Corpuscular Hemoglobin 32.9 pg (27-33); Mean Corpuscular Volume 96.5 fl (82-101); Mean Platelet Volume 10.8 fL (7.4-10.4); Monocytes # 0.7 10^3/uL (0.2-0.9); Monocytes % 11.9 %; Neutrophils # 4.54 10^3/uL (1.8-7.7); Neutrophils % 79.5 %; Nucleated Red Blood Cells % 0 %; Platelet Count 167 10^3/cmm (157-399); Red Blood Count 4.01 10^6/uL (3.85-5.65); Red Cell Distribution Width 16.8 % (12.1-15.1); White Blood Count 5.71 10^3/uL (3.29-11.43)
[2023-08-18 09:07] LABS: Carcinoembryonic Antigen 3.2 ng/mL (0.0-4.7)
[2023-08-18 09:18] LABS: Alanine Aminotransferase 70 U/L (0-41); Albumin Level 3.9 g/dL (3.5-5.2); Alkaline Phosphatase 91 U/L (40-130); Anion Gap 11.3 (5-19); Aspartate Amino Transferase 26 U/L (0-40); Blood Urea Nitrogen 13 mg/dL (8-23); Calcium 8.8 mg/dL (8.5-10.5); Carbon Dioxide 27 mmol/L (22-29); Chloride 104 mmol/L (98-107); Creatinine Clr Calc Pharmacy 72.3733; Globulin 2.6 g/dL (1.3-4.6); Glucose 144 mg/dL (65-115); Lactate Dehydrogenase 185 U/L (135-225); Osmolality Calculated 289 mOsm/kg (285-295); Potassium 4.3 mmol/L (3.5-5.1); Sodium 138 mmol/L (136-145); Total Bilirubin 0.6 mg/dL (0.15-1.2); Total Protein 6.5 g/dL (6.6-8.7)
[2023-08-18] MEDS: acetaminophen 325 mg Tablet 650 MG PO (10:05)
[2023-08-18] MEDS: sodium chloride 0.9% 250 ML 75 ML IV (10:06)
[2023-08-18] MEDS: ondansetron 2 mg/ML SDV 2 mL 8 MG IVP (10:06)
[2023-08-18] MEDS: diphenhydrAMINE 50 mg/mL SDV 1mL 12.5 MG IVP (10:10)
[2023-08-18] MEDS: famotidine 20 mg/2 mL INJ IVP (10:12)
[2023-08-18 11:18] VITALS: PULSE 43; RESP 6; TEMP 36.3; O2SAT 87
[2023-08-18] MEDS: sodium chloride 0.9% 1,000 ML 250 ML IV (11:20)
[2023-08-18 11:21] VITALS: BP 110/54; O2SAT 92
[2023-08-18 11:25] VITALS: BP 118/69; PULSE 59; RESP 15; O2SAT 99
[2023-08-18] MEDS: methylPREDNISolone sod succ 125 mg/2 mL INJ IVP (11:25)
[2023-08-18 11:28] VITALS: BP 131/72; PULSE 70; RESP 15; O2SAT 95
== END 2023-08-18 23:59 | disposition home or self-care (01) ==
PROVIDERS: Internal Medicine Hematology & Oncology; PCP Internal Medicine; Visit Provider Internal Medicine Medical Oncology
DX: Z53.9 Procedure and treatment not carried out, unspecified reason (principal); Z45.2 Encounter for adjustment and management of vascular access device; C18.4 Malignant neoplasm of transverse colon; D70.9 Neutropenia, unspecified; C85.80 Other specified types of non-Hodgkin lymphoma, unspecified site; K57.90 Diverticulosis of intestine, part unspecified, without perforation or abscess without bleeding; N20.0 Calculus of kidney
CPT/HCPCS: 80053; 82378; 83615; 85025; 96365; 96366; 96374; 96375; 99214; J1100; J1200; J2405; J2919; J3490; J7030; J7040; J7050; J9999; Q5115

== ENCOUNTER → 2023-09-08 08:46 | Outpatient (BNVA) | payer MEDICARE, SELFPAY | PROVIDERS: PCP Internal Medicine; Visit Provider Internal Medicine Cardiovascular Disease | DX: R00.1 Bradycardia, unspecified (principal); R55 Syncope and collapse; I49.1 Atrial premature depolarization; I49.3 Ventricular premature depolarization | CPT/HCPCS: 93242 ==

== ENCOUNTER 2023-09-21 07:28 | Outpatient (CLI) | payer MEDICARE, SELFPAY ==
--- NOTE | 2023-09-21 08:00 | PETR_ITS ---
PROCEDURE INFORMATION: Exam: PET/CT Skull Base to Mid-thigh Exam date and time: 09/21/2023 10:33 AM Age: 82 years old Clinical indication: Condition or disease; Primary cancer: Malignant neoplasm of transverse colon; Follow-up oncological assessment; Prior surgery; Surgery date: 6+ months; Surgery type: Prostate, small bowel resection, large intestine, appy; Additional info: Adenocarcinoma of transverse colon/ restaging LABS AND CLINICAL REPORTS: Glucose: 85 mg/dl Treatment strategy for malignancy (PET staging): Restaging (PS) TECHNIQUE: Imaging protocol: Following at least four-hour fasting and following the injection of radiopharmaceutical, low dose CT images were obtained. Then, PET images were obtained. Attenuation corrected images were constructed using the CT scan. Fused images of PET and CT were reviewed. The standardized uptake values (SUV) reported below are maximum values within a region of interest, expressed in gm/ml. Exam includes orbital meatal line to mid-thigh. Radiopharmaceutical: 10.47 mCi F-18 FDG (Fluorodeoxyglucose), IV. Time of imaging post radiopharmaceutical administration: 1 hour Injection site: Right antecubital COMPARISON: CT abdomen and pelvis 07/28/2023, PT PET skulltothigh SUBSEQ [id number] 01/26/2023 8:22 AM FINDINGS: Tubes, catheters and devices: Uptake along the course of the right-sided peripherally inserted central catheter is noted in the region of the superior vena cava, SUV max 26.9. Brain: Visualized brain has normal physiologic uptake. Salivary glands: There is relatively symmetric physiologic versus inflammatory uptake in the bilateral parotid glands without evidence of a discrete lesion on the CT images. Pharynx: No abnormal uptake. Larynx: No abnormal uptake. Lungs, pleura and trachea: No abnormal uptake. Mild, right greater than left non radiotracer avid biapical pleural scarring is present. Right lung calcified granulomas are noted. Heart: Normal physiologic uptake. Mediastinal space: No abnormal uptake. Liver: No abnormal uptake. Gallbladder and bile ducts: No abnormal uptake. Pancreas: No abnormal uptake. Spleen: No abnormal uptake. Adrenal glands: No abnormal uptake. A similar in size low-density right adrenal nodule measures 1.6 x 1.3 cm on series 3, image 117 without elevated uptake compatible with a benign finding. Kidneys and ureters: Normal physiologic uptake. There are bilateral nonobstructing renal calculi. No hydronephrosis. Stomach and bowel: There are postoperative changes of partial resection of the right colon with no evidence of elevated uptake at the surgical staple line. Mildly elevated uptake in the stomach is new at the proximal to mid aspect and is likely physiologic or inflammatory, SUV max 4.6. No discrete gastric mass appears to be present. A surgical staple line involving a small bowel loop in the mid pelvis is noted with mild uptake along the anterior aspect of the surgical staple line, SUV max 3.8 on series 3, image 187, without a correlating lesion on the CT images. This uptake is likely physiologic.There are scattered colonic diverticula. Reproductive: There is moderate prominence of the prostate gland. Uptake in the mid prostate gland appears to be related to excreted radiotracer within urine in the prostatic urethra along the course of what appears to represent postoperative changes of TURP procedure. Vasculature: No abnormal uptake. Diffuse atherosclerotic changes are noted including within the coronary arteries. Lymph nodes: Clustered prominent mesenteric lymph nodes predominantly involving the mid to inferior abdomen are noted with elevated uptake. The most radiotracer avid and confluent region of lymph nodes is noted to the right of midline measuring 4.9 x 3.9 cm (previously 4.5 x 3.7 cm) on series 3, image 162, SUV max 8.8 (previously 8.9). Uptake within a cluster of lymph nodes slightly inferior to this level on series 3, image 170 within the mesentery measuring 2.5 x 1.5 cm (previously 2.4 x 1.8 cm) demonstrates a current SUV max of 3.2 (previously 3.7). More superiorly located midline mesenteric lymph nodes also demonstrate a decrease in uptake, for example within a lymph node measuring approximately 1.8 x 1.3 cm (previously 2.2 x 1.3 cm) on series 3, image 145, SUV max 2.9 (previously 3.7). A right periaortic lymph node measuring 1.5 x 0.8 cm (previously 2.2 x 1.1 cm) demonstrates an SUV max 1.7 (previously 3.3). Skeleton: No abnormal uptake in the visualized axial and appendicular skeleton. Degenerative changes in the spine are present. There is benign-appearing uptake in the region of the bilateral teres minor muscles which is likely physiologic or inflammatory. Soft tissues: A moderate size fat containing uncomplicated appearing left inguinal hernia is present. PET/PET [facility] SUBSEQ [id number] IMPRESSION: 1. Radiotracer avid mesenteric lymph nodes are overall decreased in size with the exception of the largest cluster of lymph nodes to the right of midline. Uptake within all of these regions is decreased since the prior PET-CT consistent with response to therapy. 2. Interval postoperative changes of right colectomy with no evidence of abnormal uptake at the colectomy operative site. 3. New uptake in the stomach is noted without a definite correlating lesion on the CT images, likely physiologic or inflammatory. 4. Markedly elevated uptake along the intrathoracic course of the right-sided peripherally inserted central catheter is noted which is likely physiologic and related to the injected radiotracer bolus. Uptake related to inflammatory versus infectious changes or thrombus in this region cannot be entirely excluded. 5. Additional nonurgent findings as detailed above.
== END 2023-09-21 07:29 | disposition home or self-care (01) ==
PROVIDERS: PCP Internal Medicine; Visit Provider Internal Medicine Hematology & Oncology
DX: C18.4 Malignant neoplasm of transverse colon (principal); J98.4 Other disorders of lung; J84.10 Pulmonary fibrosis, unspecified; E27.8 Other specified disorders of adrenal gland; N20.0 Calculus of kidney; K57.30 Diverticulosis of large intestine without perforation or abscess without bleeding; N42.89 Other specified disorders of prostate; G31.89 Other specified degenerative diseases of nervous system; Z98.890 Other specified postprocedural states
CPT/HCPCS: 78815; A9552

== ENCOUNTER 2023-09-22 08:00 | Oncology outpatient (recurring) (ONCR) | payer MEDICARE, SELFPAY ==
[2023-08-25 08:47] LABS: Basophils % 0.3 %; Eosinophils # 0.2 10^3/uL (0.0-0.8); Eosinophils % 2.7 %; Hematocrit 39.3 % (37-53); Lymphocytes # 0.5 10^3/uL (0.8-4.8); Lymphocytes % 7.6 %; Mean Corpuscular HGB Conc 34.4 g/dL (30-55); Mean Corpuscular Hemoglobin 33.4 pg (27-33); Mean Corpuscular Volume 97.3 fl (82-101); Mean Platelet Volume 11.2 fL (7.4-10.4); Monocytes # 0.7 10^3/uL (0.2-0.9); Monocytes % 12.1 %; Neutrophils # 4.58 10^3/uL (1.8-7.7); Neutrophils % 76.1 %; Nucleated Red Blood Cells % 0 %; Platelet Count 151 10^3/cmm (157-399); Red Blood Count 4.04 10^6/uL (3.85-5.65); Red Cell Distribution Width 16.3 % (12.1-15.1); White Blood Count 6.02 10^3/uL (3.29-11.43)
[2023-08-25 09:15] LABS: Alanine Aminotransferase 63 U/L (0-41); Albumin Level 4.2 g/dL (3.5-5.2); Alkaline Phosphatase 92 U/L (40-130); Anion Gap 13.6 (5-19); Aspartate Amino Transferase 35 U/L (0-40); Blood Urea Nitrogen 21 mg/dL (8-23); Calcium 8.5 mg/dL (8.5-10.5); Carbon Dioxide 26 mmol/L (22-29); Chloride 104 mmol/L (98-107); Globulin 2.5 g/dL (1.3-4.6); Glucose 114 mg/dL (65-115); Osmolality Calculated 292 mOsm/kg (285-295); Potassium 4.6 mmol/L (3.5-5.1); Sodium 139 mmol/L (136-145); Total Bilirubin 0.6 mg/dL (0.15-1.2); Total Protein 6.7 g/dL (6.6-8.7)
[2023-09-08 08:15] VITALS: BP 134/63; PULSE 84; RESP 16; TEMP 36.6; O2SAT 100
--- NOTE | 2023-09-08 09:07 | HM_ITS ---
[facility] Test Date: 2023-09-08 Pat Name: Jules Diamond Department: Room: Gender: Male Success Coach: : 1940 Requested By: Db Guido Order Number: [id number] Saravia MD: Shelby Sun M.D. Interpretive Statements INTERPRETATION: 1. The patient's monitor analysis was done for a total of 3 days 18 hours and 41 mins.the minimum heart rate was 57 beats per minute with a maximum of 169. The average heart rate was 79 beats per minute. The rhythm at the minimum and maximum heart rate were sinus bradycardia and a short run of PAT respectively. 2. There were 79 ventricular ectopics. There were 79 isolated beats ;0 couplets., 0 bigeminal beats and 0 trigeminal beats. There were no runs of wide complex tachycardia s. The ventricular ectopics accounted for less than 1% of the total heartbeats 3. There were a total of 1942 supraventricular ectopics. There were a total of 1777 isolated beats and 64 couplets. There were 101 runs of narrow complex tachycardia beats. The supraventricular ectopics accounted for less than 1% of the total heart beats. 4. No symptoms were mentioned in the diary. There were a total of 1 patient reported events. No arrhythmias were found to be associated with this CONCLUSION: 1. The baseline rhythm was found to be normal sinus rhythm with an overall average heart rate of 79 beats per minute. There were a total of 79 ventricular ectopics and 1940 supraventricular ectopics comprising less than 1% and less than 1% respectively of the total heartbeats . 2. No significant pauses or bradycardias noted. 3. No symptoms noted. 4. No similar previous studies are available for comparison Electronically Signed On 09-27-2023 23:01:02 CDT by Shelby Sun M.D. [id number]
[2023-09-22 08:29] LABS: Basophils % 0.2 %; Eosinophils # 0.1 10^3/uL (0.0-0.8); Eosinophils % 3.1 %; Hematocrit 38.8 % (37-53); Lymphocytes # 0.4 10^3/uL (0.8-4.8); Lymphocytes % 8.6 %; Mean Corpuscular HGB Conc 35.3 g/dL (30-55); Mean Corpuscular Hemoglobin 34.9 pg (27-33); Mean Corpuscular Volume 98.7 fl (82-101); Mean Platelet Volume 10.9 fL (7.4-10.4); Monocytes # 0.3 10^3/uL (0.2-0.9); Monocytes % 8.1 %; Neutrophils # 3.22 10^3/uL (1.8-7.7); Neutrophils % 76.4 %; Nucleated Red Blood Cells % 0 %; Platelet Count 160 10^3/cmm (157-399); Red Blood Count 3.93 10^6/uL (3.85-5.65); Red Cell Distribution Width 14.2 % (12.1-15.1); White Blood Count 4.21 10^3/uL (3.29-11.43)
[2023-09-22 08:48] LABS: Alanine Aminotransferase 43 U/L (0-41); Albumin Level 4.1 g/dL (3.5-5.2); Alkaline Phosphatase 92 U/L (40-130); Aspartate Amino Transferase 36 U/L (0-40); Blood Urea Nitrogen 18 mg/dL (8-23); Calcium 9.1 mg/dL (8.5-10.5); Carbon Dioxide 26 mmol/L (22-29); Chloride 105 mmol/L (98-107); Creatinine Clr Calc Pharmacy 81.0421; Globulin 2.8 g/dL (1.3-4.6); Glucose 186 mg/dL (65-115); Osmolality Calculated 295 mOsm/kg (285-295); Sodium 139 mmol/L (136-145); Total Bilirubin 0.6 mg/dL (0.15-1.2); Total Protein 6.9 g/dL (6.6-8.7)
[2023-09-22 08:49] LABS: Anion Gap 12.5 (5-19); Potassium 4.5 mmol/L (3.5-5.1)
[2023-09-22 10:53] VITALS: BP 129/68; PULSE 68; RESP 17; TEMP 36.6; O2SAT 98
--- NOTE | 2023-09-22 11:08 | PC.NURSE ---
PICC line removed per Dr. Esqueda's verbal order. Medications reviewed with Dr. Esqueda. Per Dr. Esqueda. Patient to stop Allopurinol. Continue for 1 month- Bactrim, Flagyl, and Cipro. Patient verbalized understanding with all instructions. Tolerated PICC line removal without complications. PICC line intact 32.5cm/ 5fr double lumen removed, insertion site is clean, no bleeding or complications. Pressure held for 10 minutes, and pressure dressing of gauze/ bioclusive applied. Patient verbalized understanding to remove dressing slowly after 24 hours. - SAUL Holloway
== END 2023-09-24 23:59 | disposition home or self-care (01) ==
PROVIDERS: Internal Medicine Hematology & Oncology; PCP Internal Medicine; Visit Provider Internal Medicine Medical Oncology
DX: Z53.9 Procedure and treatment not carried out, unspecified reason; C18.4 Malignant neoplasm of transverse colon; C85.80 Other specified types of non-Hodgkin lymphoma, unspecified site
CPT/HCPCS: 36592; 80053; 85025; 93242; 99213; 99214

== ENCOUNTER 2023-10-13 08:45 | Oncology outpatient (recurring) (ONCR) | payer MEDICARE, SELFPAY | END 2023-10-24 23:59 | disposition home or self-care (01) | LOC: ONCMED 08:45 | PROVIDERS: PCP Internal Medicine; Visit Provider Internal Medicine Medical Oncology | DX: Z53.9 Procedure and treatment not carried out, unspecified reason (principal); Z45.2 Encounter for adjustment and management of vascular access device; R00.1 Bradycardia, unspecified; R55 Syncope and collapse; C85.80 Other specified types of non-Hodgkin lymphoma, unspecified site; C18.4 Malignant neoplasm of transverse colon; D70.9 Neutropenia, unspecified; K57.90 Diverticulosis of intestine, part unspecified, without perforation or abscess without bleeding; D70.1 Agranulocytosis secondary to cancer chemotherapy; T45.1X5A Adverse effect of antineoplastic and immunosuppressive drugs, initial encounter; Z88.9 Allergy status to unspecified drugs, medicaments and biological substances; X58.XXXA Exposure to other specified factors, initial encounter | CPT/HCPCS: 36415 ==

== ENCOUNTER → 2023-10-15 08:56 | Outpatient (BNVA) | payer MEDICARE, SELFPAY | PROVIDERS: PCP Internal Medicine; Visit Provider Nurse Practitioner Family | DX: L57.0 Actinic keratosis (principal); L82.1 Other seborrheic keratosis; L73.8 Other specified follicular disorders | CPT/HCPCS: 17000; 99213 ==

== ENCOUNTER 2023-12-09 09:20 | Oncology outpatient (recurring) (ONCR) | payer MEDICARE, SELFPAY ==
[2023-12-01] MEDS: iohexol 350 mg/mL 500 mL Btl (per mL) PO (07:07)
--- NOTE | 2023-12-01 08:00 | CT_ITS ---
WS: [id number] CT CHEST, ABDOMEN AND PELVIS WITH CONTRAST HISTORY: compare to previous; colon cancer, history of lymphoma and colon cancer. TECHNIQUE: Contiguous 5 mm axial imaging performed through the chest, abdomen and pelvis with IV cont rast, oral contrast has been provided. Coronal and sagittal reformats chest. Coronal and sagittal ref ormats through the abdomen and pelvis. All CT scans at [facility] use at least one of these d ose optimization techniques: automated exposure control; mA and/or kV adjustment per patient size (in cludes targeted exams where dose is matched to clinical indication); or iterative reconstruction. CONTRAST: Omnipaque 350; 100 mL IV. DLP: 985.89 mGy.cm COMPARISON: 07/28/2023, 10/26/2022, PET/CT 09/21/[address]: No pulmonary mass or nodule. No metastatic disease. Long-term stability pleural thickening in the posterior superior LEFT apex. No pneumonia. No endobronchial lesions. Heart size is normal. No mediastinal or hilar adenopathy. Normal size aorta. Mild atherosclerosis. Normal size pulmonary nyasia ry. Small lipoma RIGHT lateral chest wall. No destructive bone lesions. Abdomen CT: Small hiatal hernia. No metastatic lesions within the liver. There is a very tiny low-att enuation nodule posterior to the gallbladder fossa which has been present on prior studies and negati ve on PET/CT. Normal portal vein. Negative gallbladder and spleen. Mild atrophy of the pancreas. No c ommon bile duct or pancreatic duct dilatation. Stable RIGHT adrenal nodule X 17 mm. No LEFT adrenal n odule. Mild atherosclerosis aorta. Mild plaque within the celiac axis and SMA but no stenosis. Nonobs tructing calcifications within each kidney. There are a few small cortical hypodensities. Central mesenteric lymph nodes are reidentified. The PET/CT positive lymph nodes in the central mesen karime have progressed and increased in size and number since 09/21/2023 and 07/28/2023. The largest confl uent lymphadenopathy measures 10.8 x 6.8 x 4.7 cm. Mesenteric lymph nodes begin just below the level of the pancreas near the celiac axis and SMA and through the mesenteric root extending inferiorly to the level of the aortic bifurcation. There is no obstruction of the small bowel. Prior LEFT colectomy. Food products and increased soft tissue in the dependent stomach. At the surgic al anastomotic site no recurrent mass is identified. No adjacent lymph nodes. Mild distal colonic div erticular disease. Pelvic CT: Bilateral inguinal canals are patent containing fat. Prostate enlargement. Negative bladde r. There are a few osteolytic changes in the femoral heads. Lytic changes within the lumbar spine are probably degenerative. Similar to 07/28/2023 and negative on recent PET/CT. CT/CT chest abdpel w/*[id number] IMPRESSION: 1. Central mesenteric lymphadenopathy has progressed in size and number since 09/21/2023. Largest cluster of lymph nodes measures 10.8 x 6.8 x 4.7 cm. 2. Status post RIGHT colectomy. No recurrent mass at the anastomotic site. 3. No metastatic disease to the lungs or mediastinum. 4. Long-term stability RIGHT adrenal nodule. 5. No metastatic disease to the liver.
[2023-12-01 08:31] LABS: Blood Urea Nitrogen 16 mg/dL (8-23)
[2023-12-01] MEDS: iohexol 350 mg/mL 500 mL Btl (per mL) IV (08:56)
== END 2023-12-25 23:59 | disposition home or self-care (01) ==
PROVIDERS: PCP Internal Medicine; Visit Provider Internal Medicine Medical Oncology
DX: Z53.9 Procedure and treatment not carried out, unspecified reason (principal); Z45.2 Encounter for adjustment and management of vascular access device; R00.1 Bradycardia, unspecified; R55 Syncope and collapse; C85.80 Other specified types of non-Hodgkin lymphoma, unspecified site; C18.4 Malignant neoplasm of transverse colon; D70.9 Neutropenia, unspecified; K57.90 Diverticulosis of intestine, part unspecified, without perforation or abscess without bleeding; D70.1 Agranulocytosis secondary to cancer chemotherapy; T45.1X5A Adverse effect of antineoplastic and immunosuppressive drugs, initial encounter; Z88.9 Allergy status to unspecified drugs, medicaments and biological substances; X58.XXXA Exposure to other specified factors, initial encounter
CPT/HCPCS: 71260; 74177; 82565; 84520; 99214; Q9967

== ENCOUNTER 2024-03-01 06:23 | Outpatient (CLI) | payer MEDICARE, SELFPAY ==
[2024-03-01 06:47] VITALS: BMI 28.8
--- NOTE | 2024-03-01 06:48 | ECG_ITS ---
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 Interpretive Statements LEXISCAN SESTAMIBI STRESS TEST Procedure: At the baseline, the blood pressure was 140/86 mmHg with a heart rate of 62 bpm. The electrocardiogram showed normal sinus rhythm, normal axis with normal ST and T's. The Lexiscan was infused over a period of 20 seconds. A total of 0.4 mg of Lexiscan was infused. The stress phase was continued for a total of 5 minutes. Heart rate was at the end of stress phase was 72 bpm and a blood pressure of 132/64 mmHg. The EKG at the peak infusion revealed normal sinus rhythm with no significant ST-T wave changes. Sestamibi was injected 20 seconds after the Lexiscan infusion. Blood pressure at the end of recovery phase was 151/67 mmHg with a heart rate of 73bpm. Conclusion: 1. Normal EKG response to Lexiscan infusion 2. No Lexiscan induced chest pain or cardiac arrhythmia. 3. Normal blood pressure and heart rate response. 4. Sestamibi/sestamibi perfusion scan pending; see separate report. Electronically Signed On 03-29-2024 19:47:16 LINER HELPER by Evin Boone M.D. [id number]
--- NOTE | 2024-03-01 06:48 | NMCV_ITS ---
NM miguel perf SPECT r/s* [id number] Jules Diamond Age: 83 Gender: M : 1940 Exam Date: 03/01/2024 07:17 Ordering Phys: Db Guido MD Technologist: NATIVIDAD Epsinal Exam Location: [facility] Indications: CP STRESS TEST Please [facility] IMAGE PROTOCOL Rest/Stress 1 Lexiscan Day Radiopharmaceutical Dose (mCi) Administration Site Administered by Rest: Tc-99m 9.2 IV Fiorella Joel, TECHNICAL CONSULTANT Sestamibi Stress:Tc-99m 28.4 IV Fiorella Danielsgle, TECHNICAL CONSULTANT Sestamibi Rest: 01-Mar-2024 60 Discovery 630 Stress: 01-Mar-2024 30 Discovery 630 Images obtained in supine and prone position. 0.4mg Lexiscan. SPECT RESULTS Technical Quality: Good Raw Data Analysis: Normal Image Corrections: No attenuation or motion correction applied Summed Stress Score: 9 Summed Rest Score: 16 Summed Difference Score: 0 PERFUSION FINDINGS Large area of patchy decreased tracer uptake noted in basal to distal inferior inferoseptal inferolateral and apical wall of the left ventricle suggestive of old myocardial infarction versus scarring without ischemia FUNCTIONAL RESULTS (calculated via Gated SPECT) Stress Image LV EF (%): 69 Stress EDV (mL):108 TID: 1.13 Stress ESV (mL):33 FUNCTIONAL FINDINGS: Basal to distal inferior wall severe hypokinesis.TID ratio is elevated which could be secondary left ventricle hypertrophy however cannot rule out multivessel coronary artery disease. 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 This study is negative for ischemia. Christoph Hitchcock MD (Electronically Signed) Final Date: 02 March 2024 21:25 S
[2024-03-01] MEDS: regadenoson 0.4 Mg/5 ml Syringe IVP (08:01)
[2024-03-01 08:10] VITALS: BP 151/67; PULSE 75
== END 2024-03-01 06:24 | disposition home or self-care (01) ==
PROVIDERS: PCP Internal Medicine; Visit Provider Internal Medicine
DX: R06.09 Other forms of dyspnea (principal)
CPT/HCPCS: 36415; 78452; 93017; 96374; A9500; J2785

== ENCOUNTER → 2024-05-25 13:23 | Outpatient (BNVA) | payer MEDICARE, SELFPAY | PROVIDERS: PCP Internal Medicine; Visit Provider Nurse Practitioner Family | DX: L30.9 Dermatitis, unspecified (principal); D48.5 Neoplasm of uncertain behavior of skin | CPT/HCPCS: 11102; 99213 ==

== ENCOUNTER → 2024-06-08 11:23 | Outpatient (BNVA) | payer MEDICARE, SELFPAY | PROVIDERS: PCP Internal Medicine; Visit Provider Nurse Practitioner Family | DX: C44.319 Basal cell carcinoma of skin of other parts of face (principal); L23.9 Allergic contact dermatitis, unspecified cause | CPT/HCPCS: 99213 ==

== ENCOUNTER → 2024-06-15 09:29 | Outpatient (BNVA) | payer MEDICARE, SELFPAY | PROVIDERS: PCP Internal Medicine; Visit Provider Dermatology | DX: L30.0 Nummular dermatitis (principal); L82.1 Other seborrheic keratosis; C44.311 Basal cell carcinoma of skin of nose | CPT/HCPCS: 17281; 99213 ==

== ENCOUNTER 2024-06-23 09:52 | Outpatient (CLI) | payer MEDICARE, SELFPAY ==
--- NOTE | 2024-06-23 09:57 | PETR_ITS ---
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 Then, PET images were obtained. Attenuation corrected images were constructed using the CT scan. Fused images of PET and CT were reviewed. The standardized uptake values (SUV) reported below are maximum values within a region of interest, expressed in gm/ml. Exam includes orbital meatal line to mid-thigh. SUV normalization method: BodyWeight Radiopharmaceutical: 11.39 mCi F-18 FDG (Fluorodeoxyglucose), IV. Time of imaging post radiopharmaceutical administration: 47 minutes Injection site: LTAC COMPARISON: PT PET skull to thigh SUBS [id number] 09/21/2023 FINDINGS: Brain: Normal physiologic uptake. Pharynx: No abnormal uptake. Larynx: No abnormal uptake. Lungs, pleura and trachea: No abnormal uptake. No lung nodules or masses. No pleural effusion. heart: No abnormal uptake. There is no cardiomegaly. Severe coronary artery calcification is present. There is no pericardial effusion. Heart: Unremarkable. Mediastinal space: No abnormal uptake. There is a small hiatal hernia. Liver: No abnormal uptake. Maximum uptake is 2.6 SUV. Gallbladder and biliary ducts: No abnormal uptake. Pancreas: No abnormal uptake. Spleen: No abnormal uptake. No splenomegaly. Adrenal glands: No abnormal uptake. Stable 1.9 x 1.2 cm non FDG avid right adrenal nodule suggestive of benign finding. No left adrenal nodules. Kidneys and ureters: Normal physiologic uptake. No hydronephrosis. Stable bilateral nonobstructive renal stones. Stomach and bowel: No abnormal uptake. Stable changes after right hemicolectomy. Stable diverticulosis in the left colon. Intraperitoneal and retroperitoneal spaces: No abnormal uptake. No ascites. Urinary bladder: Normal physiologic uptake. Reproductive: No abnormal uptake. Stable large prostate with TURP defect. Vasculature: No abnormal uptake. No aortic aneurysm. Lymph nodes: There is persistent FDG avid mesenteric lymphadenopathy with the highest uptake of 7.4 SUV, previously 8.8 SUV, with interval increase in size. The anterior-posterior diameter of the cluster of nodes on axial image 183 increased from 4 cm to 5.6 cm; the maximum oblique [id number] diameter of this mass increased from 11.3 cm to 13.2 cm. Three small mesenteric lymph nodes in the right lower quadrant along the ileocolic vessels increase in size currently measuring up to 1.1 x 0.9 cm with new abnormal uptake of 5.6 SUV (axial images 194, 202 106). Left gastric lymph node on axial image 140 increased from 0.7 x 0.4 cm to 1.2 x 0.8 cm with new abnormal uptake of 6.2 SUV. Portacaval lymph node on axial image 147 increased in short axis from 0.5 cm to 0.9 cm with new abnormal uptake of 6.8 SUV. Small retroperitoneal lymph nodes very slightly increased in size (from 0.5 cm to 0.8 cm in the short axis) with low-grade uptake of 3.6 SUV. No FDG avid lymphadenopathy in the neck, chest, pelvis, and extremities. Skeleton: No abnormal uptake in the visualized axial and appendicular skeleton. Soft tissues: Areas of linear uptake in the left arm represent benign finding secondary to lymphatic drainage from the injection site in the left antecubital fossa. Stable small fat containing left inguinal hernia. PET/PET skull to thigh SUBS [id number] IMPRESSION: In comparison with 09/21/2023 there is mild progression of lymphomatous lymphadenopathy in the abdomen with increase in size of previously enlarged mesenteric nodes with no increased uptake (7.4 SUV versus 8.8 SUV) and new borderline enlargement of previously normal ileocolic, portacaval and retroperitoneal lymph nodes with new abnormal activity up 6.8 SUV. There is no abnormal uptake outside of the abdomen.
== END 2024-06-23 09:53 | disposition home or self-care (01) ==
LOC: RAD 09:52
PROVIDERS: PCP Internal Medicine; Visit Provider Internal Medicine Medical Oncology
DX: C88.40 Extranodal marginal zone B-cell lymphoma of mucosa-associated lymphoid tissue [MALT-lymphoma] not having achieved remission (principal); I25.10 Atherosclerotic heart disease of native coronary artery without angina pectoris; K44.9 Diaphragmatic hernia without obstruction or gangrene; R93.89 Abnormal findings on diagnostic imaging of other specified body structures; N20.0 Calculus of kidney; Z98.890 Other specified postprocedural states; K57.30 Diverticulosis of large intestine without perforation or abscess without bleeding; N40.0 Benign prostatic hyperplasia without lower urinary tract symptoms; K40.90 Unilateral inguinal hernia, without obstruction or gangrene, not specified as recurrent; R59.0 Localized enlarged lymph nodes
CPT/HCPCS: 78815; A9552

== ENCOUNTER → 2024-09-01 09:42 | Outpatient (BNVA) | payer MEDICARE, SELFPAY | PROVIDERS: PCP Internal Medicine; Visit Provider Nurse Practitioner Family | DX: L57.8 Other skin changes due to chronic exposure to nonionizing radiation (principal); L81.4 Other melanin hyperpigmentation; D22.62 Melanocytic nevi of left upper limb, including shoulder; L82.1 Other seborrheic keratosis; Z85.828 Personal history of other malignant neoplasm of skin; L82.0 Inflamed seborrheic keratosis; Z78.9 Other specified health status; R20.8 Other disturbances of skin sensation; L29.89 Other pruritus; R58 Hemorrhage, not elsewhere classified; L53.8 Other specified erythematous conditions; L57.0 Actinic keratosis | CPT/HCPCS: 17000; 17110; 99213 ==

== ENCOUNTER → 2024-12-11 10:14 | Outpatient (BNVA) | payer MEDICARE, SELFPAY | PROVIDERS: PCP Internal Medicine; Visit Provider Nurse Practitioner Family | DX: L57.8 Other skin changes due to chronic exposure to nonionizing radiation (principal); L81.4 Other melanin hyperpigmentation; L73.8 Other specified follicular disorders; D22.5 Melanocytic nevi of trunk; L82.1 Other seborrheic keratosis; Z85.828 Personal history of other malignant neoplasm of skin; L82.0 Inflamed seborrheic keratosis; L53.8 Other specified erythematous conditions; R20.8 Other disturbances of skin sensation; Z78.9 Other specified health status; L29.89 Other pruritus | CPT/HCPCS: 17110; 99213 ==

== ENCOUNTER 2024-12-18 12:12 | Oncology outpatient (recurring) (ONCR) | payer MEDICARE, SELFPAY ==
[2024-12-18 12:54] LABS: Hematocrit 41.2 % (37-53); Hemoglobin 13.40 g/dL (11.27-16.99); Mean Corpuscular HGB Conc 32.5 g/dL (30-55); Mean Corpuscular Hemoglobin 30.5 pg (27-33); Mean Corpuscular Volume 93.6 fl (82-101); Nucleated Red Blood Cells % 0 %; Platelet Count 60 10^3/cmm (157-399); Red Blood Count 4.40 10^6/uL (3.85-5.65); White Blood Count 12.52 10^3/uL (3.29-11.43)
[2024-12-18 13:14] LABS: Carcinoembryonic Antigen 2.4 ng/mL (0.0-4.7)
[2024-12-18 13:27] LABS: Alanine Aminotransferase 55 U/L (0-41); Albumin Level 3.8 g/dL (3.5-5.2); Alkaline Phosphatase 124 U/L (40-130); Anion Gap 15.1 (5-19); Aspartate Amino Transferase 22 U/L (0-40); Blood Urea Nitrogen 15 mg/dL (8-23); Calcium 8.7 mg/dL (8.5-10.5); Carbon Dioxide 26 mmol/L (22-29); Chloride 104 mmol/L (98-107); Creatinine Clr Calc Pharmacy 69.3111; Globulin 2.7 g/dL (1.3-4.6); Glucose 180 mg/dL (65-115); Osmolality Calculated 297 mOsm/kg (285-295); Potassium 4.1 mmol/L (3.5-5.1); Sodium 141 mmol/L (136-145); Total Protein 6.5 g/dL (6.6-8.7)
[2024-12-18 14:12] LABS: Slide Review Slide Review Perform
== END 2024-12-24 23:59 | disposition home or self-care (01) ==
PROVIDERS: PCP Internal Medicine; Visit Provider Internal Medicine Medical Oncology
DX: C18.4 Malignant neoplasm of transverse colon (principal); C85.80 Other specified types of non-Hodgkin lymphoma, unspecified site; Z87.891 Personal history of nicotine dependence; Z79.899 Other long term (current) drug therapy; Z92.3 Personal history of irradiation
CPT/HCPCS: 36415; 80053; 82378; 85025; 99214

== ENCOUNTER 2025-01-02 07:18 | Oncology outpatient (recurring) (ONCR) | payer MEDICARE, SELFPAY ==
[2025-01-02] VITALS (8 sets, daily range): BP systolic 119–151; BP diastolic 69–75; PULSE 57–66; RESP 17–18; TEMP 35.9–36.6; O2SAT 94–97
[2025-01-02 07:41] LABS: Hematocrit 38.4 % (37-53); Hemoglobin 12.80 g/dL (11.27-16.99); Mean Corpuscular HGB Conc 33.3 g/dL (30-55); Mean Corpuscular Hemoglobin 30.9 pg (27-33); Mean Corpuscular Volume 92.8 fl (82-101); Nucleated Red Blood Cells % 0 %; Platelet Count 188 10^3/cmm (157-399); Red Blood Count 4.14 10^6/uL (3.85-5.65); White Blood Count 8.24 10^3/uL (3.29-11.43)
[2025-01-02 07:58] LABS: Alanine Aminotransferase 23 U/L (0-41); Albumin Level 3.9 g/dL (3.5-5.2); Alkaline Phosphatase 84 U/L (40-130); Anion Gap 12.4 (5-19); Aspartate Amino Transferase 22 U/L (0-40); Blood Urea Nitrogen 15 mg/dL (8-23); Calcium 9.1 mg/dL (8.5-10.5); Carbon Dioxide 26 mmol/L (22-29); Chloride 108 mmol/L (98-107); Creatinine Clr Calc Pharmacy 68.8242; Globulin 2.8 g/dL (1.3-4.6); Glucose 163 mg/dL (65-115); Osmolality Calculated 298 mOsm/kg (285-295); Potassium 4.4 mmol/L (3.5-5.1); Sodium 142 mmol/L (136-145); Total Protein 6.7 g/dL (6.6-8.7)
[2025-01-02 08:13] LABS: Magnesium 2.0 mg/dL (1.7-2.3); Uric Acid 5.8 mg/dL (3.4-7.0)
[2025-01-02] MEDS: diphenhydrAMINE 50 mg/mL SDV 1mL IVP (09:07)
[2025-01-02] MEDS: SODIUM CHLORIDE 0.9% IV ×3 (10:22→17:05)
[2025-01-02] MEDS: RITUXIMAB PVVR IV (10:22)
[2025-01-02] MEDS: CYCLOPHOSPHAMIDE IV (15:33)
[2025-01-02] MEDS: DOXOrubicin 2 mg/ml MDV 50 MG IVP (16:46)
[2025-01-02] MEDS: VINCRISTINE IV (17:05)
[2025-01-02] MEDS: pegfilgrastim 6 mg/0.6 mL Kit (onpro) SUBCUT (17:25)
== END 2025-01-02 23:59 | disposition home or self-care (01) ==
PROVIDERS: Nurse Practitioner Family; PCP Internal Medicine; Visit Provider Internal Medicine Medical Oncology
DX: Z51.11 Encounter for antineoplastic chemotherapy (principal); C18.4 Malignant neoplasm of transverse colon; C85.80 Other specified types of non-Hodgkin lymphoma, unspecified site; R03.0 Elevated blood-pressure reading, without diagnosis of hypertension; E83.39 Other disorders of phosphorus metabolism; Z87.891 Personal history of nicotine dependence; Z79.899 Other long term (current) drug therapy; Z92.3 Personal history of irradiation; Z79.52 Long term (current) use of systemic steroids
CPT/HCPCS: 80053; 82306; 83735; 84100; 84550; 85025; 96367; 96375; 96377; 96411; 96413; 96415; 96417; 99215; J1100; J1200; J1453; J2469; J2506; J3490; J7040; J9000; J9075; J9370; J9999; Q5119

== ENCOUNTER 2025-01-16 11:20 | Oncology outpatient (recurring) (ONCR) | payer MEDICARE, SELFPAY ==
[2025-01-09 08:53] LABS: Hematocrit 36.1 % (37-53); Hemoglobin 11.90 g/dL (11.27-16.99); Mean Corpuscular HGB Conc 33.0 g/dL (30-55); Mean Corpuscular Hemoglobin 30.8 pg (27-33); Mean Corpuscular Volume 93.5 fl (82-101); Nucleated Red Blood Cells % 0 %; Platelet Count 49 10^3/cmm (157-399); Red Blood Count 3.86 10^6/uL (3.85-5.65); White Blood Count 2.85 10^3/uL (3.29-11.43)
[2025-01-09 09:10] LABS: Alanine Aminotransferase 29 U/L (0-41); Albumin Level 3.7 g/dL (3.5-5.2); Alkaline Phosphatase 96 U/L (40-130); Anion Gap 12.2 (5-19); Aspartate Amino Transferase 21 U/L (0-40); Blood Urea Nitrogen 18 mg/dL (8-23); Calcium 9.0 mg/dL (8.5-10.5); Carbon Dioxide 28 mmol/L (22-29); Chloride 104 mmol/L (98-107); Globulin 2.6 g/dL (1.3-4.6); Glucose 143 mg/dL (65-115); Magnesium 1.9 mg/dL (1.7-2.3); Osmolality Calculated 294 mOsm/kg (285-295); Potassium 4.2 mmol/L (3.5-5.1); Sodium 140 mmol/L (136-145); Total Protein 6.3 g/dL (6.6-8.7); Uric Acid 5.8 mg/dL (3.4-7.0)
[2025-01-09 09:21] LABS: Slide Review Slide Review Perform
[2025-01-16 12:13] LABS: Hematocrit 38.7 % (37-53); Hemoglobin 12.80 g/dL (11.27-16.99); Mean Corpuscular HGB Conc 33.1 g/dL (30-55); Mean Corpuscular Hemoglobin 30.8 pg (27-33); Mean Corpuscular Volume 93.0 fl (82-101); Nucleated Red Blood Cells % 0 %; Platelet Count 115 10^3/cmm (157-399); Red Blood Count 4.16 10^6/uL (3.85-5.65); White Blood Count 11.25 10^3/uL (3.29-11.43)
[2025-01-16 12:29] LABS: Alanine Aminotransferase 17 U/L (0-41); Albumin Level 4.0 g/dL (3.5-5.2); Alkaline Phosphatase 107 U/L (40-130); Anion Gap 12.5 (5-19); Aspartate Amino Transferase 18 U/L (0-40); Blood Urea Nitrogen 16 mg/dL (8-23); Calcium 9.4 mg/dL (8.5-10.5); Carbon Dioxide 27 mmol/L (22-29); Chloride 104 mmol/L (98-107); Globulin 3.1 g/dL (1.3-4.6); Glucose 95 mg/dL (65-115); Osmolality Calculated 289 mOsm/kg (285-295); Potassium 4.5 mmol/L (3.5-5.1); Sodium 139 mmol/L (136-145); Total Protein 7.1 g/dL (6.6-8.7)
[2025-01-16 12:42] LABS: Slide Review Slide Review Perform
== END 2025-01-23 23:59 | disposition home or self-care (01) ==
PROVIDERS: Nurse Practitioner Family; PCP Internal Medicine; Visit Provider Internal Medicine Medical Oncology
DX: C85.80 Other specified types of non-Hodgkin lymphoma, unspecified site; E83.39 Other disorders of phosphorus metabolism; Z53.9 Procedure and treatment not carried out, unspecified reason
CPT/HCPCS: 36415; 80053; 83615; 83735; 84100; 84550; 85025